=== PATIENT | male | born 1970 | race Caucasian/White ===

== ENCOUNTER 2017-02-25 20:24 | Inpatient (IN) | payer SELFPAY ==
[~2017-02-25 20:24] MED LIST: ASPI81TA82 PO; CLON1 PO; DIGO0.25 PO; ENAL2.5 PO; FOLI20CA PO; FURO1TAB93 PO; KLOR20TA6 PO; LITH300 PO; METO50CR PO
[2017-02-25 23:00] VITALS: BP 149/97; PULSE 82; RESP 12; TEMP 98.3
[2017-02-25] MEDS ORDERED: LORazepam 2 MG TAB PO PRN (23:15)
[2017-02-25] MEDS ORDERED: POTASSIUM CHLORIDE 20 MEQ CONTROLLED RELEASE TAB PO ONE (23:15)
[2017-02-25] MEDS ORDERED: SODIUM CHLORIDE 0.9% FLUSH 10 ML FLUSH IV FLUSH PRN (23:15)
[2017-02-25] MEDS ORDERED: NALOXONE HCL 0.4 MG/ML AMP IV PRN (23:15)
[2017-02-25] MEDS ORDERED: LORazepam 2 MG/ML VIAL IV PUSH PRN ×4 (23:15)
[2017-02-25] MEDS ORDERED: FLUMAZENIL 0.5 MG/5 ML VIAL IV PUSH PRN (23:15)
[2017-02-25] MEDS ORDERED: LORazepam 1 MG TAB PO PRN (23:15)
[2017-02-25 23:30] VITALS: BP 126/54; PULSE 78; RESP 33; TEMP 99.2; O2SAT 98
[2017-02-26] VITALS (13 sets, daily range): BP systolic 125–159; BP diastolic 77–100; PULSE 74–97; RESP 15–25; TEMP 97.4–98.2; O2SAT 52–98
[2017-02-26 04:51] LABS: AUTOMATED NEUTROPHIL # 1.8 TH/MM3 (1.8-7.7); BASOPHIL # 0.1 TH/MM3 (0-0.2); BASOPHIL % 1.6 % (0.0-2.0); EOSINOPHIL # 0.1 TH/MM3 (0-0.4); EOSINOPHIL % 3.2 % (0.0-4.0); HEMATOCRIT 33.7 % (39.0-51.0); LYMPH % 29.1 % (9.0-44.0); LYMPHOCYTE # 0.9 TH/MM3 (1.0-4.8); MEAN CELL VOLUME 105.3 FL (80.0-100.0); MEAN CORPUSCULAR HEMOGLOBIN 35.4 PG (27.0-34.0); MEAN CORPUSCULAR HGB CONC 33.6 % (32.0-36.0); MONO % 8.5 % (0.0-8.0); NEUT % 57.6 % (16.0-70.0); PLATELET COUNT 81 TH/MM3 (150-450); RED CELL DISTRIBUTION WIDTH 14.3 % (11.6-17.2); WHITE BLOOD COUNT 3.2 TH/MM3 (4.0-11.0)
[2017-02-26 04:56] LABS: HEMO FLAGS DIFF FINAL
[2017-02-26 05:00] LABS: CHLORIDE 101 MEQ/L (98-107); POTASSIUM 3.3 MEQ/L (3.5-5.1); SODIUM (NA) 138 MEQ/L (136-145)
[2017-02-26 05:07] LABS: ANION GAP 8 MEQ/L (5-15); BICARBONATE 29.1 MEQ/L (21.0-32.0); BLOOD UREA NITROGEN 6 MG/DL (7-18); MAGNESIUM 1.7 MG/DL (1.5-2.5)
[2017-02-26 05:09] LABS: ALT (GPT) 39 U/L (12-78); AST (GOT) 102 U/L (15-37)
[2017-02-26 05:10] LABS: GLOMERULAR FILTRATION RATE 156 ML/MIN (>89)
[2017-02-26 05:11] LABS: TOTAL BILIRUBIN ADULT 2.3 MG/DL (0.2-1.0)
[2017-02-26 05:12] LABS: ALKALINE PHOSPHATASE 109 U/L (45-117)
[2017-02-26] MEDS ORDERED: DILTIAZEM 125 MG/NS 100 ML IV SCH ×2 (06:15)
[2017-02-26] MEDS: ONDANSETRON HCL 4 MG/2 ML VIAL IVP PRN ×2 (06:53→12:58)
[2017-02-26] MEDS ORDERED: PNEUMOCOCCAL POLYVALENT INJ 25 MCG/0.5 ML SYR IM ONE (09:00)
[2017-02-26] MEDS: SODIUM CHLORIDE 0.9% FLUSH 10 ML FLUSH IV FLUSH SCH ×2 (09:26→21:21)
[2017-02-26] MEDS: chlordiazePOXIDE 25 MG CAP PO SCH ×3 (09:26→18:22)
[2017-02-26] MEDS: THIAMINE HCL 100 MG TAB PO SCH (09:26)
--- NOTE | 2017-02-26 11:30 | HHI.HP ---
[facility] Brennen Walsh MD Admission Diagnosis Diagnoses: Chief Complaint: Chest pressure and fast heartbeat Travel History International Travel<30 Days: No Contact w/Intl Traveler <30 Da: No History of Present Illness Years old male with history of CHF and A. fib PDA repair as a child and alcoholic abuse, presented to the ED with complaint of left sided chest pressure 6 out of 10, along with short of breath and palpitation. Patient was taken his vital somewhere and he was told his heart rate is in the 160s so he was sent to the hospital. Patient admitted not taking his medication yesterday and obviously he has a history of compliance. A counseled him extensively about the importance of being committed to his medication in order to avoid heart arrhythmia. Patient is on aspirin only no anticoagulation. He is on Lopressor, digoxin, enalapril Lasix and potassium. Patient reported some nausea. Patient was found to be in A. fib with RVR, he was given Cardizem bolus and placed on drip his heart rate is controlled in the 80s now patient admitted to the ICU Review of Systems All systems reviewed and was positive for what is mentioned in history of present illness otherwise negative Past Family Social History Past Medical History CHF A. fib Bipolar Alcoholic abuse Noncompliance Past Surgical History H/O PDA repair in the childhood Allergies: Coded Allergies: Codeine (Verified Allergy, Mild, Nausea/Vomiting, 02/25/17) Family History Review with the patient,not aware of significant medical history runs in his family Social History He drinks daily beer and other drinks, denies tobacco or illicit drug abuse Physical Exam Vital Signs Vital Signs Date Time Temp Pulse Resp B/P Pulse Ox O2 Delivery O2 Flow Rate FiO2 02/26/17 08:00 88 02/26/17 08:00 91 Nasal Cannula 6.00 02/26/17 08:00 97.7 86 17 137/86 92 02/26/17 06:00 83 02/26/17 05:00 87 02/26/17 05:00 86 16 134/79 91 02/26/17 04:00 91 02/26/17 04:00 86 18 132/88 87 02/26/17 03:47 86 17 144/90 89 02/26/17 03:00 88 02/26/17 03:00 96 15 149/87 52 02/26/17 02:00 93 02/26/17 01:52 94 16 125/77 73 02/26/17 01:52 94 16 125/77 73 02/26/17 01:00 90 02/26/17 00:00 97 02/25/17 23:30 99.2 78 33 126/54 98 02/25/17 23:00 82 12 149/97 Physical Exam GENERAL: This is a well-nourished, well-developed patient, in no apparent distress. SKIN: No rashes, warm and dry HEAD: Atraumatic. Normocephalic. EYES: Pupils equal round and reactive. Extraocular motions intact. No scleral icterus. ENT: Nose without bleeding, or drainage, Airway patent. NECK: Trachea midline. Supple CARDIOVASCULAR: Irregularly irregular rhythm without murmurs, gallops, or rubs. RESPIRATORY: Fair air entry bilaterally. No wheezes, rales, or rhonchi. GASTROINTESTINAL: Abdomen soft, non-tender, nondistended. Positive bowel sounds MUSCULOSKELETAL: Extremities without clubbing, cyanosis, or edema. Pedal pulses appreciated NEUROLOGICAL: Awake and alert. Moves all extremity. Normal speech.no focal neurological deficit Laboratory Laboratory Tests Test 02/26/17 04:37 White Blood Count 3.2 Red Blood Count 3.20 Hemoglobin 11.3 Hematocrit 33.7 Mean Corpuscular Volume 105.3 Mean Corpuscular Hemoglobin 35.4 Mean Corpuscular Hemoglobin 33.6 Concent Red Cell Distribution Width 14.3 Platelet Count 81 Mean Platelet Volume 7.3 Neutrophils (%) (Auto) 57.6 Lymphocytes (%) (Auto) 29.1 Monocytes (%) (Auto) 8.5 Eosinophils (%) (Auto) 3.2 Basophils (%) (Auto) 1.6 Neutrophils # (Auto) 1.8 Lymphocytes # (Auto) 0.9 Monocytes # (Auto) 0.3 Eosinophils # (Auto) 0.1 Basophils # (Auto) 0.1 CBC Comment DIFF FINAL Differential Comment Sodium Level 138 Potassium Level 3.3 Chloride Level 101 Carbon Dioxide Level 29.1 Anion Gap 8 Blood Urea Nitrogen 6 Creatinine 0.56 Estimat Glomerular Filtration 156 Rate Random Glucose 83 Calcium Level 8.1 Magnesium Level 1.7 Total Bilirubin 2.3 Aspartate Amino Transf 102 (AST/SGOT) Alanine Aminotransferase 39 (ALT/SGPT) Alkaline Phosphatase 109 Total Protein 6.5 Albumin 3.3 Lipase 277 Result Diagram: 02/26/1743602/26/17436 Imaging EKG showed A. fib with RVR Assessment and Plan Assessment and Plan 46 years old male with history of A. fib and CHF came with A. fib with RVR manifested with chest pressure, patient has history of A. fib he is on Lopressor and digoxin History of CHF Increased lipase 1003 dropped to normal limit today possibly chronic pancreatitis due to alcoholism Alcohol abuse> patient counseled Noncompliance> [facility] DVT prophylaxis Plan: Admitted to ICU Started on Cardizem drip with bolus Oxygen Cardiac enzyme and EKG reviewed by me normal ce, Check 2-D echo to document his EF We'll resume his Lopressor and digoxin and slowly taper Cardizem drip to keep heart rate below 110 Resume Lasix CHA2D VASc score is 1 consider his CHF , patient on aspirin only, he might not be candidate at this point for anticoagulation considering his significant noncompliance and alcoholism DVT prophylaxis with Lovenox Transfer to MedSur floor when of Cardizem and heart are stable DT prophylaxis with CIWA protocol Physician Certification 2 Midnight Certification Type: Admission for Inpatient Services Order for Inpatient Services The services are ordered in accordance with Medicare regulations or non- Medicare payer requirements, as applicable. In the case of services not specified as inpatient-only, they are appropriately provided as inpatient services in accordance with the 2-midnight benchmark. Estimated LOS (days): 2 days is the estimated time the patient will need to remain in the hospital, assuming treatment plan goals are met and no additional complications. Post-Hospital Plan: Not yet determined Cheryl Bear MD February 26, 2017 11:30
[2017-02-26] MEDS ORDERED: LITH600C PO (11:33)
[2017-02-26] MEDS ORDERED: ASPI81CH CHEW (11:33)
[2017-02-26] MEDS ORDERED: FOLI5CAP PO (11:33)
[2017-02-26] MEDS ORDERED: POTA20TA5 PO (11:33)
[2017-02-26] MEDS ORDERED: CLON1 PO (11:33)
[2017-02-26] MEDS ORDERED: METO-309 PO (11:33)
[2017-02-26] MEDS ORDERED: FURO1TAB60 PO (11:33)
[2017-02-26] MEDS ORDERED: ENAL2.5T PO (11:33)
[2017-02-26] MEDS ORDERED: LITH300T PO (11:33)
[2017-02-26] MEDS ORDERED: DIGO0.25 PO (11:33)
[2017-02-26] MEDS: METOPROLOL SUCCINATE 50 MG EXTENDED RELEASE TAB PO SCH ×2 (11:56→21:20)
--- NOTE | 2017-02-26 16:53 | EC ---
Study Study Date:02/26/2017 STUDY CONCLUSIONS SUMMARY - Left ventricle: The cavity size was normal. Wall thickness was normal. Systolic function was normal. The estimated ejection fraction was in the range of 55% to 60%. Wall motion was normal; there were no regional wall motion abnormalities. - Ventricular septum: The contour showed diastolic flattening and systolic flattening. - Right ventricle: The cavity size was moderately dilated. Wall thickness was normal. Systolic function was reduced. - Tricuspid valve: Mild-moderate regurgitation. - Pulmonary arteries: Systolic pressure was severely increased. PA peak pressure: 80mm Hg (S). If LV function is below 40, please consider prescribing an ACEI or ARB or document rationale for non-use. PROCEDURE DATA STUDY STATUS: Elective. Procedure: Transthoracic echocardiography. Image quality was good. Scanning was performed from the parasternal, apical, and subcostal acoustic windows. Study completion: The patient tolerated the procedure well. Transthoracic echocardiography. M-mode, complete 2D, complete spectral Doppler, and color Doppler. Patient status: Inpatient. CARDIAC ANATOMY LEFT VENTRICLE: The cavity size was normal. Wall thickness was normal. Systolic function was normal. The estimated ejection fraction was in the range of 55% to 60%. Wall motion was normal; there were no regional wall motion abnormalities. AORTIC VALVE: Trileaflet; normal thickness leaflets. Doppler: Transvalvular velocity was within the normal range. There was no stenosis. No regurgitation. AORTA: Aortic root: The aortic root was normal in size. MITRAL VALVE: Structurally normal valve. Doppler: Transvalvular velocity was within the normal range. There was no evidence for stenosis. Trace to mild regurgitation. LEFT ATRIUM: The atrium was normal in size. RIGHT VENTRICLE: The cavity size was moderately dilated. Wall thickness was normal. Systolic function was reduced. VENTRICULAR SEPTUM: The contour showed diastolic flattening and systolic flattening. PULMONIC VALVE: Doppler: Transvalvular velocity was within the normal range. There was no evidence for stenosis. No regurgitation. TRICUSPID VALVE: Structurally normal valve. Doppler: Transvalvular velocity was within the normal range. Mild-moderate regurgitation. PULMONARY ARTERY: The main pulmonary artery was normal-sized. Systolic pressure was severely increased. RIGHT ATRIUM: The atrium was normal in size. PERICARDIUM: There was no pericardial effusion. SYSTEMIC VEINS: Inferior vena cava: The vessel was dilated. BASIC MEASUREMENTS ADULT NORMAL Left ventricle LV internal dimension, ED, chordal level, 44.3 mm 43-52 PLAX LV internal dimension, ES, chordal level, 30.7 mm 23-38 PLAX Fractional shortening, chordal level, PLAX 31 % >29 LV posterior wall thickness, ED 7.84 mm IVS/LVPW ratio, ED 1.28 <1.3 Ventricular septum Septal thickness, ED 10 mm Left atrium Anterior-posterior dimension 41 mm Right ventricle RV internal dimension, ED, PLAX 31.6 mm 19-38 DOPPLER MEASUREMENTS ADULT NORMAL Main pulmonary artery Pressure, S *80 mm Hg =30 Mitral valve Peak E-wave velocity 64.2 cm/s Peak A-wave velocity 28.6 cm/s Peak E/A ratio 2.2 Tricuspid valve Regurgitant peak velocity 403 cm/s Peak RV-RA gradient, S 65 mm Hg Maximal regurgitant velocity 403 cm/s Systemic veins Estimated CVP 15 mm Hg Right ventricle RV pressure, S *80 mm Hg <30 LEGEND: Mean values are shown as u=mean value. Asterisk (*) gill values outside specified normal range. Amended Navi Hernandez [id number]
[2017-02-26] MEDS ORDERED: ACETAMINOPHEN 325 MG TAB PO PRN (19:15)
[2017-02-26] MEDS ORDERED: clonazePAM 1 MG TAB PO SCH (21:00)
[2017-02-26] MEDS: LITHIUM CARBONATE 300 MG TAB PO SCH (21:20)
[2017-02-27] VITALS: BP 155/98; PULSE 90; RESP 19; TEMP 99.2; O2SAT 97
[2017-02-27] MEDS: ONDANSETRON HCL 4 MG/2 ML VIAL IVP PRN (01:13)
[2017-02-27 04:00] VITALS: BP 134/84; PULSE 92; RESP 16; TEMP 98.3
[2017-02-27 08:00] VITALS: BP 121/78; PULSE 83; PULSE 92; RESP 16; TEMP 99.1; O2SAT 93
[2017-02-27] MEDS ORDERED: POTASSIUM CHLORIDE 20 MEQ CONTROLLED RELEASE TAB PO SCH (09:00)
[2017-02-27] MEDS ORDERED: FOLIC ACID 1 MG TAB PO SCH (09:00)
[2017-02-27] MEDS ORDERED: DIGOXIN 0.25 MG TAB PO SCH (09:00)
[2017-02-27] MEDS ORDERED: ENALAPRIL MALEATE 2.5 MG TAB PO SCH (09:00)
[2017-02-27] MEDS ORDERED: ASPIRIN 81 MG CHEW TAB PO SCH (09:00)
[2017-02-27] MEDS ORDERED: FUROSEMIDE 40 MG TAB PO SCH (09:00)
[2017-02-27] MEDS: THIAMINE HCL 100 MG TAB PO SCH (09:12)
[2017-02-27] MEDS: METOPROLOL SUCCINATE 50 MG EXTENDED RELEASE TAB PO SCH (09:12)
[2017-02-27] MEDS: chlordiazePOXIDE 25 MG CAP PO SCH (09:12)
[2017-02-27] MEDS: SODIUM CHLORIDE 0.9% FLUSH 10 ML FLUSH IV FLUSH SCH (09:12)
[2017-02-27] MEDS: LITHIUM CARBONATE 300 MG TAB PO SCH (09:13)
[2017-02-27 12:00] VITALS: BP 101/67; PULSE 78; RESP 12; TEMP 97.2; O2SAT 96
[2017-02-27] MEDS ORDERED: VITA100T2 PO (12:30)
--- NOTE | 2017-02-27 18:24 | HHI.PR ---
Subjective Remarks Patient doing much better, heart rate controlled, no chest pain or chest pressure He has good O2 sat discussed with the nurse plan to discharge home today Objective Vitals Vital Signs Date Time Temp Pulse Resp B/P Pulse Ox O2 Delivery O2 Flow Rate FiO2 02/27/17 12:00 97.2 78 12 101/67 96 02/27/17 12:00 96 Nasal Cannula 2.00 02/27/17 08:00 83 02/27/17 08:00 99.1 92 16 121/78 93 02/27/17 07:53 92 Nasal Cannula 3.00 02/27/17 04:00 98.3 92 16 134/84 02/27/17 04:00 92 02/27/17 00:00 90 02/27/17 00:00 99.2 90 19 155/98 97 02/26/17 20:31 17 02/26/17 20:00 80 02/26/17 20:00 98.2 80 17 159/100 98 02/26/17 19:00 98 Nasal Cannula 6.00 I/O 02/26/17 02/26/17 02/26/17 02/27/17 02/27/17 02/27/17 07:00 15:00 23:00 07:00 15:00 23:00 Intake Total 1835 ml 852 ml 1000 ml 1000 ml 2600 ml Output Total 600 ml 450 ml 650 ml 2400 ml Balance 1235 ml 402 ml 350 ml -1400 ml 2600 ml Intake Oral 1800 ml 820 ml 1000 ml 1000 ml 2600 ml IV Total 35 ml 32 ml Output Urine Total 600 ml 450 ml 650 ml 2400 ml # Voids 3 5 # Bowel Movements 0 3 3 Result Diagram: 02/26/17 0437 02/26/17 0437 Objective Remarks GENERAL: This is a well-nourished, well-developed patient, in no apparent distress. CARDIOVASCULAR: Regular rate and irregular rhythm without murmurs, gallops, or rubs. RESPIRATORY: Clear to auscultation. Breath sounds equal bilaterally. No wheezes , rales, or rhonchi. GASTROINTESTINAL: Abdomen soft, non-tender, nondistended. Normal, active bowel sounds MUSCULOSKELETAL: Extremities without clubbing, cyanosis, or edema. NEURO: Alert & Oriented x4 to person, place, time, situation. Moves all ext x4 A/P Assessment and Plan 46 years old male with history of A. fib and CHF came with A. fib with RVR manifested with chest pressure, patient has history of A. fib he is on Lopressor and digoxin History of CHF Increased lipase 1003 dropped to normal limit today possibly chronic pancreatitis due to alcoholism Alcohol abuse> patient counseled Noncompliance> [facility] DVT prophylaxis Hospital course Patient Admitted to ICU That is post Cardizem drip with bolus Oxygen Cardiac enzyme and EKG are unremarkable Patient resumed on his Lopressor and digoxin and slowly taper Cardizem drip to keep heart rate below 110, heart rate well controlled on digoxin and Lopressor Resume Lasix CHA2D VASc score is 1 consider his CHF , patient on aspirin only, he might not be candidate at this point for anticoagulation considering his significant noncompliance and alcoholism DVT prophylaxis with Lovenox DT prophylaxis with CIWA protocol Ration stable to be discharged home and follow up with his contracting specialist and PCP Discharge patient to home Condition on discharge: Improved Healthy heart Diet as tolerated Ad Mary Alice activity Rx written: See med rec Follow-up with primary care physician in one week Cheryl Bear MD February 27, 2017 18:24
[2017-03-17] MEDS ORDERED: FURO40TA PO (13:13)
== END 2017-02-27 14:00 | disposition home or self-care (01) | DRG 309 ==
LOC: PHEDDLT 20:24 → PHICU 22:54
PROVIDERS: ADMIT Hospitalist; ATTEND Hospitalist
DX: I48.91 Unspecified atrial fibrillation (principal); K86.0 Alcohol-induced chronic pancreatitis; I50.9 Heart failure, unspecified; Z79.82 Long term (current) use of aspirin; Z91.19 Patient's noncompliance with other medical treatment and regimen; F10.20 Alcohol dependence, uncomplicated
CPT/HCPCS: 71010; 80053; 80162; 80307; 83690; 83735; 83880; 84484; 85025; 85610; 85730; 90732; 93005; 93306; 94620; 96374; 96375; 99281; J2405; J3475; J7040

== ENCOUNTER 2017-03-17 21:53 | Inpatient (IN) | payer MEDICAID, OTHER ==
[~2017-03-17] VITALS: Ht 177.8 cm; Wt 81.1 kg
[~2017-03-17 21:53] MED LIST changes: +ASPI81CH CHEW; +ENAL2.5T PO; +FOLI5CAP PO; +FURO1TAB60 PO; +FURO40TA PO; +LITH300T PO; +LITH600C PO; +METO-309 PO; +POTA20TA5 PO; +VITA100T2 PO
[2017-03-17 22:03] VITALS: BP 138/98; PULSE 59; RESP 22; TEMP 97.8; O2SAT 100
[2017-03-17] MEDS ORDERED: LORazepam 2 MG/ML VIAL IV PUSH PRN (22:30)
[2017-03-17] MEDS ORDERED: THIAMINE HCL 100 MG TAB PO ONE (22:30)
[2017-03-17] MEDS ORDERED: NALOXONE HCL 0.4 MG/ML AMP IV PRN (22:30)
[2017-03-17] MEDS ORDERED: SODIUM CHLORIDE 0.9% FLUSH 10 ML FLUSH IV FLUSH PRN (22:30)
--- NOTE | 2017-03-17 23:43 | HHI.HP ---
[facility] Unknown Admission Diagnosis Diagnoses: Travel History International Travel<30 Days: No Contact w/Intl Traveler <30 Da: No Traveled to Known Affected Are: No Sepsis Criteria SIRS Criteria (2 or more): RR > 20 or PaCO2 < 32 History of Present Illness reports of dizziness, shortness of breath palptiations hr 140s weakness lack of energy chest pain - nasuea with it , no sweating , no radiation cramps ran out of kcl pills going on few days but worse reports compliance, able to name his meds, but dig level subtherapeutic folic acid and kcl ran out no fever/ vomiting/ diarrhea/ burnign./ blood constantly cold have not had levothryoxine for almost 10d ays pcp- [facility] [place] Review of Systems Except as stated in HPI: all other systems reviewed are Neg Past Family Social History Past Medical History htn chf afib - on asa alone, had bleeding due to coumadin bipolar 2004- renal failure- pneumonia, was intubated- had heart failure then; was on dialysis briefly then, 29 days in coma hypothyroid Past Surgical History Patent ductus arteriosis sx at age 2 - with patch cardiac ablation for afib Allergies: Coded Allergies: Codeine (Verified Allergy, Mild, Nausea/Vomiting, 03/31/17) Family History copd in family grandfather at 50yo of massive heart attack aunt brain aneurysm 2 uncles with lung cancer mother with pad from smoking Social History no smoking drink about 4 pack a day no drugs Physical Exam Vital Signs Vital Signs Date Time Temp Pulse Resp B/P Pulse Ox O2 Delivery O2 Flow Rate FiO2 03/17/17 22:03 97.8 59 22 138/98 100 Physical Exam GENERAL: This is a well-nourished, well-developed patient, in no apparent distress. SKIN: Flushed skin HEAD: Atraumatic. Normocephalic. No temporal or scalp tenderness. EYES: No scleral icterus. No injection or drainage. ENT: Nose without bleeding, purulent drainage or septal hematoma. Airway patent. NECK: Trachea midline. No JVD CARDIOVASCULAR: Regular rate and rhythm without murmurs, gallops, or rubs. RESPIRATORY: Irregularly irregular, ventricular rate around 110. No murmur appreciated. GASTROINTESTINAL: Abdomen soft, non-tender, nondistended.No guarding. MUSCULOSKELETAL: Extremities without clubbing, cyanosis, or edema. . No calf tenderness. NEUROLOGICAL: Awake and alert. Motor and sensory grossly within normal limits. Normal speech. Laboratory labs from [place] er visit reviewed Imaging imaging reports- from [place] er visit- reviewed Assessment and Plan Assessment and Plan Impression: chest pain - r/o acs afib with rvr chf exacerbation etoh abuse hypokalemia hypomagnesium Plan: serial cardiac enzymes and ekg lasix 20mg iv q12hrs - for maybe next 24hrs or so kcl 40meq x 2 replaced Magnesium replaced orally. Will follow levels. Watch for withdrawal. Ativan 1 mg IV every 2 hours when necessary for withdrawal symptoms. Thiamine. Resume home meds. DVT prophylaxiswith Lovenox. GI prophylaxis on pantoprazole. Discussed Condition With patient, ER provider, nursing staff Physician Certification 2 Midnight Certification Type: Admission for Inpatient Services Order for Inpatient Services The services are ordered in accordance with Medicare regulations or non- Medicare payer requirements, as applicable. In the case of services not specified as inpatient-only, they are appropriately provided as inpatient services in accordance with the 2-midnight benchmark. Estimated LOS (days): 2 days is the estimated time the patient will need to remain in the hospital, assuming treatment plan goals are met and no additional complications. Post-Hospital Plan: Home Yaron Herring MD March 17, 2017 23:43
[2017-03-18] VITALS (8 sets, daily range): BP systolic 104–147; BP diastolic 59–99; PULSE 82–120; RESP 20; TEMP 97–98.1; O2SAT 93–98
[2017-03-18 00:44] LABS: CREATINE KINASE 59 U/L (39-308)
[2017-03-18 03:59] LABS: AUTOMATED NEUTROPHIL # 1.8 TH/MM3 (1.8-7.7); BASOPHIL # 0.1 TH/MM3 (0-0.2); EOSINOPHIL # 0.1 TH/MM3 (0-0.4); HEMATOCRIT 37.8 % (39.0-51.0); HEMO FLAGS DIFF FINAL; LYMPH % 31.9 % (9.0-44.0); LYMPHOCYTE # 1.2 TH/MM3 (1.0-4.8); MEAN CORPUSCULAR HEMOGLOBIN 35.5 PG (27.0-34.0); MEAN CORPUSCULAR HGB CONC 33.8 % (32.0-36.0); MONO % 15.2 % (0.0-8.0); NEUT % 48.9 % (16.0-70.0); PLATELET COUNT 149 TH/MM3 (150-450); RED CELL DISTRIBUTION WIDTH 13.5 % (11.6-17.2); WHITE BLOOD COUNT 3.6 TH/MM3 (4.0-11.0)
[2017-03-18 04:11] LABS: ANION GAP 11 MEQ/L (5-15); BICARBONATE 26.7 MEQ/L (21.0-32.0); BLOOD UREA NITROGEN 4 MG/DL (7-18); CHLORIDE 101 MEQ/L (98-107); GLOMERULAR FILTRATION RATE 170 ML/MIN (>89); POTASSIUM 3.3 MEQ/L (3.5-5.1); SODIUM (NA) 139 MEQ/L (136-145)
[2017-03-18 04:21] LABS: CREATINE KINASE 56 U/L (39-308)
[2017-03-18] MEDS: ENALAPRIL MALEATE 2.5 MG TAB PO SCH (09:00)
[2017-03-18] MEDS: SODIUM CHLORIDE 0.9% FLUSH 10 ML FLUSH IV FLUSH SCH ×2 (09:00→20:42)
[2017-03-18] MEDS ORDERED: POTASSIUM CHLORIDE 20 MEQ CONTROLLED RELEASE TAB PO SCH (09:00)
[2017-03-18] MEDS: LITHIUM CARBONATE 300 MG SLOW RELEASE TAB PO SCH ×2 (09:00→20:42)
[2017-03-18] MEDS: FUROSEMIDE 20 MG/2 ML VIAL IV PUSH SCH ×2 (09:00→18:00)
[2017-03-18] MEDS: DIGOXIN 0.25 MG TAB PO SCH (09:00)
[2017-03-18] MEDS: ENOXAPARIN SODIUM 40 MG/0.4 ML SYRINGE SQ SCH (09:00)
[2017-03-18] MEDS: THIAMINE HCL 100 MG TAB PO SCH (09:00)
[2017-03-18] MEDS ORDERED: ENOXAPARIN SODIUM 40 MG/0.4 ML SYRINGE SQ SCH (09:00)
[2017-03-18] MEDS: ASPIRIN 81 MG CHEW TAB CHEW SCH (09:00)
[2017-03-18] MEDS: METOPROLOL TARTRATE 50 MG TAB PO SCH ×2 (09:00→20:42)
--- NOTE | 2017-03-18 11:28 | EKG ---
Date Performed: 03/18/2017 Time Performed: 04:56:40 PTAGE: 46 years EKG: Atrial fibrillation Prolonged QT interval IV conduction defect Possible septal infarct - ag e undetermined Lateral ST-T changes are nonspecific Abnormal ECG PREVIOUS TRACING : 03/17/2017 22.37 Compared to prior tracing no significant change DOCTOR: Alexis Comer Interpretating Date/Time 03/18/2017 11:26:58
--- NOTE | 2017-03-18 11:32 | EKG ---
Date Performed: 03/17/2017 Time Performed: 22:37:30 PTAGE: 46 years EKG: ATRIAL FIBRILLATION INCOMPLETE RIGHT BUNDLE BRANCH BLOCK ST DEVIATION AND MODERATE T-WAVE A BNORMALITY, CONSIDER ANTERIOR ISCHEMIA ABNORMAL ECG PREVIOUS TRACING : 04/28/2016 01.22 Compared to prior tracing no significant change DOCTOR: Alexis Comer Interpretating Date/Time 03/18/2017 11:30:42
--- NOTE | 2017-03-18 13:34 | HHI.PR ---
Subjective Remarks patient feeling better brought in patient complaining of palpitations states ran out of his Potassium pills admits to still drinking alcohol no chest pains or shortness of breath, diarrhea, cough or palpitations overnight up and ambulating- gait steady Objective Vitals Vital Signs Date Time Temp Pulse Resp B/P Pulse Ox O2 Delivery O2 Flow Rate FiO2 03/18/17 12:00 97.8 83 20 118/76 93 03/18/17 08:00 97.0 120 20 121/99 96 03/18/17 04:00 97.5 82 20 147/79 96 03/18/17 01:23 91 03/18/17 00:02 Room Air 03/17/17 22:03 97.8 59 22 138/98 100 Result Diagram: 03/18/17 0334 03/18/17 0334 Objective Remarks awake and alert, NAD anicteric lungs no rales or wheezes irregularly irregular rhythm HR 78 abdomen soft, nontender extremities no edema, no calf tenderness neuro exam- unremarkable A/P Assessment and Plan 46 years old male came in for palpitations and chest pain- on admission in rapid a. fib- now controlled. troponin negative. now continue on ASA. patient poor candidate for chronic anticoagulation. with chronic alcohol use chf exacerbation - lungs clear on exam- change to po Lasix Hypokalemia- KCL 20 meq po bid etoh abuse - counselled. CIWA protocol, CM consult- [facility] referral History of Bipolar disorder on [place] and Klonopin DVT prophylaxiswith Lovenox. GI prophylaxis on pantoprazole. Jessenia Savage MD Mar 18, 2017 13:34
[2017-03-18 15:50] LABS: BICARBONATE 28.2 MEQ/L (21.0-32.0); MAGNESIUM 1.5 MG/DL (1.5-2.5); POTASSIUM 3.4 MEQ/L (3.5-5.1)
[2017-03-18] MEDS: POTASSIUM CHLORIDE 20 MEQ CONTROLLED RELEASE TAB PO SCH (20:42)
[2017-03-18] MEDS ORDERED: clonazePAM 1 MG TAB PO SCH (21:00)
[2017-03-19] VITALS: BP 111/69; PULSE 80; RESP 20; TEMP 97.6; O2SAT 92
[2017-03-19 04:00] VITALS: BP 110/77; PULSE 86; RESP 20; TEMP 98; O2SAT 92
[2017-03-19 08:00] VITALS: BP 119/75; PULSE 87; RESP 18; TEMP 97.3; O2SAT 94
[2017-03-19] MEDS: LITHIUM CARBONATE 300 MG SLOW RELEASE TAB PO SCH (08:08)
[2017-03-19] MEDS: DIGOXIN 0.25 MG TAB PO SCH (08:08)
[2017-03-19] MEDS: THIAMINE HCL 100 MG TAB PO SCH (08:09)
[2017-03-19] MEDS: ASPIRIN 81 MG CHEW TAB CHEW SCH (08:09)
[2017-03-19] MEDS: METOPROLOL TARTRATE 50 MG TAB PO SCH (08:09)
[2017-03-19] MEDS: POTASSIUM CHLORIDE 20 MEQ CONTROLLED RELEASE TAB PO SCH (08:09)
[2017-03-19] MEDS: ENOXAPARIN SODIUM 40 MG/0.4 ML SYRINGE SQ SCH (08:10)
[2017-03-19] MEDS: FUROSEMIDE 20 MG/2 ML VIAL IV PUSH SCH (08:10)
[2017-03-19] MEDS: SODIUM CHLORIDE 0.9% FLUSH 10 ML FLUSH IV FLUSH SCH (08:10)
[2017-03-19] MEDS: ENALAPRIL MALEATE 2.5 MG TAB PO SCH (08:10)
[2017-03-19 09:00] VITALS: PULSE 102
--- NOTE | 2017-03-19 11:19 | HHI.PR ---
Subjective Remarks feeling much much better- ambulating around with no dizzines, chest pain or palpitations Objective Vitals Vital Signs Date Time Temp Pulse Resp B/P Pulse Ox O2 Delivery O2 Flow Rate FiO2 03/19/17 08:00 97.3 87 18 119/75 94 03/19/17 04:00 98.0 86 20 110/77 92 03/19/17 00:00 97.6 80 20 111/69 92 03/18/17 20:19 93 03/18/17 20:00 98.1 90 20 104/59 97 03/18/17 20:00 Room Air 03/18/17 16:00 98.0 94 20 126/69 98 03/18/17 12:00 97.8 83 20 118/76 93 I/O 03/18/17 03/18/17 03/18/17 03/19/17 03/19/17 03/19/17 07:00 15:00 23:00 07:00 15:00 23:00 Intake Total 480 ml 0 ml 480 ml Output Total 500 ml 0 ml 700 ml Balance -20 ml 0 ml -220 ml Intake Oral 480 ml 0 ml 480 ml Output Urine Total 500 ml 0 ml 700 ml # Bowel Movements 1 Result Diagram: 03/18/17 0334 03/18/17 1505 Objective Remarks awake and alert, NAD anicteric lungs no rales or wheezes irregularly irregular rhythm HR 80s abdomen soft, nontender extremities no edema, no calf tenderness neuro exam- unremarkable gait steady A/P Assessment and Plan 46 years old male came in for A trial fibrillation in RVR - - now controlled. troponin negative. now continue on ASA. patient poor candidate for chronic anticoagulation. with chronic alcohol use chf exacerbation - lungs clear on exam- change to po Lasix Hypokalemia- KCL 20 meq po bid. BMP now etoh abuse - counselled. CIWA protocol, CM consult- [facility] referral History of Bipolar disorder on [place] and Klonopin DVT prophylaxiswith Lovenox. GI prophylaxis on pantoprazole. Patient wanting to go home now- He ff up with a Health care center got all of his meds + Kcl scripts- just needs to be filled will ask CM for taxi pass Home today Jessenia Savage MD Mar 19, 2017 11:19
[2017-03-19] MEDS ORDERED: GNP100TA3 PO (11:21)
[2017-03-19 12:00] VITALS: BP 126/90; PULSE 82; RESP 18; TEMP 97.2; O2SAT 94
== END 2017-03-19 15:03 | disposition home or self-care (01) | DRG 310 ==
LOC: NEDDLT 21:53 → N04A 22:03
PROVIDERS: ADMIT Internal Medicine; ATTEND Internal Medicine
DX: I48.91 Unspecified atrial fibrillation (principal); I50.9 Heart failure, unspecified; E87.6 Hypokalemia; F10.10 Alcohol abuse, uncomplicated; F31.9 Bipolar disorder, unspecified; I10 Essential (primary) hypertension; Z79.82 Long term (current) use of aspirin; E03.9 Hypothyroidism, unspecified; E83.42 Hypomagnesemia; T50.3X6A Underdosing of electrolytic, caloric and water-balance agents, initial encounter; Z91.138 Patient's unintentional underdosing of medication regimen for other reason
CPT/HCPCS: 71010; 80048; 80053; 80162; 80307; 82150; 82550; 83690; 83735; 84443; 84484; 85025; 93005; 96374; J1650; J1940

== ENCOUNTER 2017-03-31 21:24 | Observation (INO) | payer MEDICAID, OTHER ==
[~2017-03-31] VITALS: Ht 165.1 cm; Wt 88.0 kg
[~2017-03-31 21:24] MED LIST changes: -ASPI81TA82 PO; -CLON1 PO; -ENAL2.5 PO; -FOLI20CA PO; -FOLI5CAP PO; -FURO1TAB60 PO; -FURO1TAB93 PO; +GNP100TA3 PO; -KLOR20TA6 PO; -LITH300 PO; -LITH600C PO; -METO50CR PO; -POTA20TA5 PO; -VITA100T2 PO
[2017-03-31] MEDS ORDERED: NALOXONE HCL 0.4 MG/ML AMP IV PRN (22:30)
[2017-03-31] MEDS ORDERED: SODIUM CHLORIDE 0.9% FLUSH 10 ML FLUSH IV FLUSH PRN (22:30)
[2017-03-31] MEDS ORDERED: LORazepam 2 MG/ML VIAL IV PUSH PRN (22:30)
[2017-04-01 01:45] VITALS: BP 133/98; PULSE 84; RESP 22; TEMP 97.8; O2SAT 100
[2017-04-01] MEDS ORDERED: SERO100T PO (01:53)
[2017-04-01 03:03] LABS: CREATINE KINASE 45 U/L (39-308)
[2017-04-01 07:54] LABS: BASOPHIL % 1.2 % (0.0-2.0); EOSINOPHIL # 0.1 TH/MM3 (0-0.4); EOSINOPHIL % 4.2 % (0.0-4.0); HEMATOCRIT 37.3 % (39.0-51.0); LYMPH % 44.1 % (9.0-44.0); LYMPHOCYTE # 1.2 TH/MM3 (1.0-4.8); MEAN CELL VOLUME 105.2 FL (80.0-100.0); MEAN CORPUSCULAR HEMOGLOBIN 36.3 PG (27.0-34.0); MEAN CORPUSCULAR HGB CONC 34.5 % (32.0-36.0); MONO % 16.3 % (0.0-8.0); NEUT % 34.2 % (16.0-70.0); PLATELET COUNT 106 TH/MM3 (150-450); RED BLOOD COUNT 3.55 MIL/MM3 (4.50-5.90); RED CELL DISTRIBUTION WIDTH 12.6 % (11.6-17.2); WHITE BLOOD COUNT 2.9 TH/MM3 (4.0-11.0)
[2017-04-01 08:00] VITALS: BP 125/69; PULSE 93; RESP 16; TEMP 96.5; O2SAT 98
[2017-04-01 08:08] LABS: CHLORIDE 102 MEQ/L (98-107); POTASSIUM 3.5 MEQ/L (3.5-5.1); SODIUM (NA) 140 MEQ/L (136-145)
[2017-04-01 08:15] LABS: ANION GAP 11 MEQ/L (5-15); BICARBONATE 26.6 MEQ/L (21.0-32.0); BLOOD UREA NITROGEN 6 MG/DL (7-18); HEMO FLAGS AUTO DIFF
[2017-04-01 08:18] LABS: GLOMERULAR FILTRATION RATE 162 ML/MIN (>89)
[2017-04-01 08:22] LABS: CREATINE KINASE 41 U/L (39-308)
[2017-04-01] MEDS ORDERED: THIAMINE HCL 100 MG TAB PO SCH ×2 (09:00→12:00)
[2017-04-01] MEDS ORDERED: SODIUM CHLORIDE 0.9% FLUSH 10 ML FLUSH IV FLUSH SCH (09:00)
[2017-04-01 09:34] LABS: BASOPHILS 1 % (0-2); EOSINOPHILS 5 % (0-4); PLATELET ESTIMATE SMEAR LOW (NORMAL); PLATELET MORPHOLOGY NORMAL (NORMAL); POLYS (SEG NEUTROPHILS) 33 % (16-70); SCAN/DIFF FINAL DIFF MANUAL; WBC DIFF SAMPLE 100
[2017-04-01] MEDS ORDERED: GNP100TA3 PO (11:32)
--- NOTE | 2017-04-01 11:33 | HHI.DCPOC ---
Discharge Care Plan Diagnosis: (1) Alcohol intoxication (2) Atrial arrhythmia Goals to Promote Your Health * To prevent worsening of your condition and complications * To maintain your health at the optimal level Directions to Meet Your Goals Take your medications as prescribed Follow your dietary instruction Follow activity as directed Keep your appointments as scheduled Take your immunizations and boosters as scheduled If your symptoms worsen call your PCP, if no PCP go to Urgent Care Center or Emergency Room Smoking is Dangerous to Your Health. Avoid second hand smoke Call the 24-hour hour crisis hotline for domestic abuse at Irene Rubin MD Apr 01, 2017 11:33
[2017-04-01 12:00] VITALS: BP 119/98; PULSE 136; RESP 20; TEMP 97.3; O2SAT 99
[2017-04-01 12:01] VITALS: O2SAT 98
--- NOTE | 2017-04-01 12:03 | HHI.HP ---
[facility] Primary Care Physician No Primary Care Physician Admission Diagnosis Diagnoses: (1) Atrial arrhythmia (2) ETOH abuse Chief Complaint: Intoxication and atrial fibrillation Travel History International Travel<30 Days: No Contact w/Intl Traveler <30 Da: No Traveled to Known Affected Are: No History of Present Illness Patient is a 46-year-old gentleman with a known history of prolonged alcohol dependency status. Patient does have a history that he was on a park bench and passed out and was sent to the emergency room by the emergency services. Patient was grossly intoxicated and unable to provide a good history. Upon sobering up the patient did complain of some abdominal discomfort and some recent ingestion of hand cotton picker in lieu of alcohol because it was "cheaper " . Patient has not taken his cardiac medications in 2 days. He did have some atrial fibrillation with a rapid ventricular response in the 130s to 150s. This improved with resuming his home medications. A lecture lites were followed. Patient has chronic thrombocytopenia which is stable without any active bleeding. Patient also reports he was recently discontinued of his digoxin due to improved heart rate status. Recently he had an echocardiogram done in February which showed preserved ejection fraction and otherwise within normal limits although the patient had a history of congestive heart failure. Patient also denies EKG nonspecific changes and negative cardiac enzymes at this time. There is no matt chest discomfort. Patient is complaining of abdominal discomfort. He has not eaten and some days it was quite sleepy while he was here. He has been alert and oriented with minimal tremor. Patient discharge planning has begun. Patient says he would not want any cardiac interventions at this time and would like to follow with his primary cloth mercerizing supervisor Dr. Tran. Review of Systems Constitutional: DENIES: Diaphoretic episodes, Fatigue, Fever, Weight gain, Weight loss, Chills, Dizziness, Change in appetite, Night Sweats Endocrine: DENIES: Heat/cold intolerance, Polydipsia, Polyuria, Polyphagia Eyes: DENIES: Blurred vision, Diplopia, Eye inflammation, Eye pain, Vision loss , Photosensitivity, Double Vision Ears, nose, mouth, throat: DENIES: Tinnitus, Hearing loss, Vertigo, Nasal discharge, Oral lesions, Throat pain, Hoarseness, Ear Pain, Running Nose, Epistaxis, Sinus Pain, Toothache, Odynophagia Respiratory: DENIES: Apneas, Cough, Snoring, Wheezing, Hemoptysis, Sputum production, Shortness of breath Cardiovascular: COMPLAINS OF: Palpitations, DENIES: Chest pain, Syncope, Dyspnea on Exertion, PND, Lower Extremity Edema, Orthopnea, Claudication Gastrointestinal: DENIES: Abdominal pain, Black stools, Bloody stools, Constipation, Diarrhea, Nausea, Vomiting, Difficulty Swallowing, Anorexia Genitourinary: DENIES: Sexual dysfunction, Urinary frequency, Urinary incontinence, Urgency, Hematuria, Dysuria, Nocturia, Penile Discharge, Testicular Pain, Testicular Swelling Musculoskeletal: DENIES: Joint pain, Muscle aches, Stiffness, Joint Swelling, Back pain, Neck pain Integumentary: DENIES: Abnormal pigmentation, Nail changes, Pruritus, Rash Hematologic/lymphatic: DENIES: Bruising, Lymphadenopathy Immunologic/allergic: DENIES: Eczema, Urticaria Neurologic: DENIES: Abnormal gait, Headache, Localized weakness, Paresthesias, Seizures, Speech Problems, Tremor, Poor Balance Psychiatric: DENIES: Anxiety, Confusion, Mood changes, Depression, Hallucinations, Agitation, Suicidal Ideation, Homicidal Ideation, Delusions Past Family Social History Past Medical History HTN AFIB CHF Etoh Dep Past Surgical History PDA repair Ablation Reported Medications Viewed in the medical record with patient. Recently discontinued digoxin Allergies: Coded Allergies: Codeine (Verified Allergy, Mild, Nausea/Vomiting, 03/31/17) Active Ordered Medications Reviewed in the medical record Family History Grandfather of coronary artery disease Social History No current tobacco, drinks beer excessively a homeless Physical Exam Vital Signs Vital Signs Date Time Temp Pulse Resp B/P Pulse Ox O2 Delivery O2 Flow Rate FiO2 04/01/17 08:00 96.5 93 16 125/69 98 04/01/17 01:45 97.8 84 22 133/98 100 04/01/17 01:45 97.8 84 22 133/98 100 Physical Exam GENERAL: This is a well-nourished, well-developed patient, in no apparent distress. SKIN: No rashes, ecchymoses or lesions. Cool and dry. HEAD: Atraumatic. Normocephalic. No temporal or scalp tenderness. EYES: Pupils equal round and reactive. Extraocular motions intact. No scleral icterus. No injection or drainage. ENT: Nose without bleeding, purulent drainage or septal hematoma. Throat without erythema, tonsillar hypertrophy or exudate. Uvula midline. Airway patent. NECK: Trachea midline. No JVD or lymphadenopathy. Supple, nontender, no meningeal signs. CARDIOVASCULAR: Atrial fibrillation without murmurs, gallops, or rubs. RESPIRATORY: Clear to auscultation. Breath sounds equal bilaterally. No wheezes , rales, or rhonchi. GASTROINTESTINAL: Abdomen soft, non-tender, nondistended. No hepato-splenomegaly , or palpable masses. No guarding. MUSCULOSKELETAL: Extremities without clubbing, cyanosis, or edema. No joint tenderness, effusion, or edema noted. No calf tenderness. Negative Homans sign bilaterally. NEUROLOGICAL: Awake and alert. Cranial nerves II through XII intact. Motor and sensory grossly within normal limits. Five out of 5 muscle strength in all muscle groups. Normal speech. Laboratory Laboratory Tests Test 04/01/17 04/01/17 02:30 07:30 Total Creatine Kinase 45 41 Troponin I LESS THAN 0.02 LESS THAN 0.02 White Blood Count 2.9 Red Blood Count 3.55 Hemoglobin 12.9 Hematocrit 37.3 Mean Corpuscular Volume 105.2 Mean Corpuscular Hemoglobin 36.3 Mean Corpuscular Hemoglobin 34.5 Concent Red Cell Distribution Width 12.6 Platelet Count 106 Mean Platelet Volume 7.2 Neutrophils (%) (Auto) 34.2 Lymphocytes (%) (Auto) 44.1 Monocytes (%) (Auto) 16.3 Eosinophils (%) (Auto) 4.2 Basophils (%) (Auto) 1.2 Neutrophils # (Auto) 1.0 Lymphocytes # (Auto) 1.2 Monocytes # (Auto) 0.5 Eosinophils # (Auto) 0.1 Basophils # (Auto) 0.0 CBC Comment AUTO DIFF Differential Total Cells 100 Counted Neutrophils % (Manual) 33 Lymphocytes % 47 Monocytes % 14 Eosinophils % 5 Basophils % 1 Neutrophils # (Manual) 1.0 Differential Comment FINAL DIFF MANUAL Platelet Estimate LOW Platelet Morphology Comment NORMAL Sodium Level 140 Potassium Level 3.5 Chloride Level 102 Carbon Dioxide Level 26.6 Anion Gap 11 Blood Urea Nitrogen 6 Creatinine 0.54 Estimat Glomerular Filtration 162 Rate Random Glucose 74 Calcium Level 8.8 Result Diagram: 04/01/17 0730 04/01/17 0730 Imaging Chest x-ray interpreted by me shows no acute cardiopulmonary findings, (done ) Assessment and Plan Problem List: (1) Alcohol intoxication ICD Code: F10.929 Status: Acute Plan: Continue with Ativan, vitamin support. Patient admonished to discontinue alcohol Expressed understanding (2) Atrial arrhythmia ICD Code: I49.8 Status: Acute Plan: Patient will resume his home medications including metoprolol, continue telemetry for now. Patient education provided. Patient has requested follow- up with his primary cloth mercerizing supervisor Dr. Tran in [facility]. Nonspecific ekg changes discussed with patient who would not want any further wrk up at this time and would like to see his Primary cloth mercerizing supervisor Echocardiogram done less than a month ago says preserved ejection fraction Negative cardiac enzymes (3) Cytopenia ICD Code: D75.9 Status: Acute Plan: Patient without evidence of infection Chronic due to chronic alcoholism Assessment and Plan Likely discharge home if heart rate improves Code Status Full code Discussed Condition With Patient, nursing staff Irene Rubin MD Apr 01, 2017 12:03
[2017-04-01] MEDS ORDERED: ASPIRIN 81 MG CHEW TAB CHEW SCH (13:00)
[2017-04-01] MEDS ORDERED: FUROSEMIDE 40 MG TAB PO SCH (13:00)
[2017-04-01] MEDS ORDERED: QUEtiapine FUMARATE 100 MG TAB PO SCH (13:00)
[2017-04-01] MEDS ORDERED: ENALAPRIL MALEATE 2.5 MG TAB PO SCH (13:00)
[2017-04-01] MEDS ORDERED: METOPROLOL TARTRATE 50 MG TAB PO SCH (13:00)
[2017-04-01 16:00] VITALS: BP 113/73; PULSE 79; RESP 18; TEMP 97.1; O2SAT 97
== END 2017-04-01 17:05 | disposition home or self-care (01) ==
LOC: PHEDDLT 21:24 → PH3B 04-01 01:15 → UNDOADMOB 04-01 01:15 → UNDODISOB 04-01 17:05
PROVIDERS: ADMIT Hospitalist; ATTEND Hospitalist
DX: F10.229 Alcohol dependence with intoxication, unspecified (principal); I48.91 Unspecified atrial fibrillation; I11.0 Hypertensive heart disease with heart failure; I50.9 Heart failure, unspecified; I49.8 Other specified cardiac arrhythmias; D75.9 Disease of blood and blood-forming organs, unspecified; Z88.5 Allergy status to narcotic agent; Z79.82 Long term (current) use of aspirin
CPT/HCPCS: 80048; 82550; 84484; 85007; 85025; 85027; 87641; 96374; G0378; J2060; 70450; 71010; 80053; 80307; 83735; 83880; 85610; 85730; 93005; 99281; 99285

== ENCOUNTER 2017-04-26 04:52 | Emergency (ER) | payer OTHER ==
[~2017-04-26] VITALS: Ht 165.1 cm; Wt 75.0 kg
[~2017-04-26 04:52] MED LIST changes: -DIGO0.25 PO; +SERO100T PO
[2017-04-26 04:57] VITALS: PULSE 95; RESP 18; TEMP 98.5; O2SAT 100
[2017-04-26 04:59] VITALS: BP 125/89; PULSE 90; RESP 18; TEMP 98.4; O2SAT 100
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
[2017-04-26 09:56] VITALS: BP 113/63; PULSE 75; RESP 18; O2SAT 97
== END 2017-04-26 12:34 | disposition home or self-care (01) ==
LOC: NEPD 04:52
DX: F10.129 Alcohol abuse with intoxication, unspecified (principal); M13.80 Other specified arthritis, unspecified site; I48.91 Unspecified atrial fibrillation; I10 Essential (primary) hypertension; I50.9 Heart failure, unspecified; E78.00 Pure hypercholesterolemia, unspecified; F31.9 Bipolar disorder, unspecified; Z59.0 Homelessness; Z79.82 Long term (current) use of aspirin
CPT/HCPCS: 99283

== ENCOUNTER 2018-08-11 15:48 | Inpatient (IN) ==
--- NOTE | 2018-08-11 15:56 | ED ---
HPI General Chief complaint: Trauma Stated complaint: Medical Time Seen by Provider: 08/11/18 15:55 Source: patient and EMS Mode of arrival: EMS Limitations: altered mental status History of Present Illness HPI narrative: Patient is a 48-year-old male who is brought in by EMS as a transfer from [facility] due to traumatic injury. Per EMS, patient walked into the outside facility and was garbling his speech. Originally, a stroke alert was called. He had a CT of his head performed that showed likely traumatic subdural hematomas. Patient was accepted in transfer to the trauma service here. Patient is awake and alert, however he is not making any sense when he speaks. Therefore, he is unable to provide much history. He does say that he probably fell, but he does not provide any other information. Related Data Home Medications Medication Instructions Recorded Confirmed aspirin 81 mg PO DAILY 08/11/18 atorvastatin 40 mg PO HS 08/11/18 furosemide 20 mg PO DAILY 08/11/18 levetiracetam [Keppra] 500 mg PO BID 08/11/18 levothyroxine [Synthroid] 25 mcg PO DAILY 08/11/18 magnesium oxide 400 mg PO HS 08/11/18 metoprolol tartrate 25 mg PO BID 08/11/18 potassium chloride 20 meq PO DAILY 08/11/18 thiamine HCl (vitamin B1) 100 mg PO DAILY 08/11/18 Allergies Allergy/AdvReac Type Severity Reaction Status Date / Time codeine Allergy Mild Nausea/Vomi Unverified 01/22/18 16:54 ting Review of Systems ROS Unobtainable ROS Unobtainable: unobtainable due to mental status PMFSH Medical History Medical History Medical history unknown (Acute) Surgical history unknown (Acute) Social History Social History Substance History: Unable to Obtain Smoking Status: Unknown if ever smoked How Often Do You Have a Drink Containing Alcohol: Unable to Obtain Recent Travel in [facility] within the Last 8 Weeks: No Recent Out of Country Travel within the Last 8 Weeks: No Exam Narrative Exam Narrative: GENERAL: Awake and alert, however confused. SKIN: Focused skin assessment warm/dry. No wounds or signs of infection. HEAD: Atraumatic. Normocephalic. EYES: Pupils equal and round and reactive. No scleral icterus. Extraocular movements intact. ENT: Mucous membranes pink and moist. NECK: Trachea midline. No JVD. C-collar in place. CARDIOVASCULAR: Regular rate and rhythm. No murmur appreciated. RESPIRATORY: No accessory muscle use. Clear to auscultation. Breath sounds equal bilaterally. GASTROINTESTINAL: Abdomen soft, non-tender, nondistended. MUSCULOSKELETAL: No obvious deformities. No clubbing. No cyanosis. No edema. NEUROLOGICAL: Awake and alert, but confused. No obvious cranial nerve deficits. Motor grossly within normal limits. Does not make sense when he speaks. Course Initial Documented Vital Signs Temperature 98.2 F 08/11/18 15:51 Pulse Rate 81 08/11/18 15:51 Respiratory Rate 18 08/11/18 15:51 Blood Pressure 114/69 08/11/18 15:51 Pulse Oximetry 99 08/11/18 15:51 Last Documented Vital Signs Temperature 98.2 F 08/11/18 20:10 Pulse Rate 82 08/11/18 21:10 Respiratory Rate 23 08/11/18 21:10 Blood Pressure 125/89 08/11/18 21:10 Pulse Oximetry 100 08/11/18 21:10 Medical Decision Making MDM Narrative Medical decision making narrative: Patient is a 48-year-old male brought in by EMS as a transfer from an outside facility. Patient was accepted by Dr. Isabel onto the trauma service due to subdural hematomas. Dr. Isabel will consult neurosurgery. CT C-spine ordered, shows no acute abnormalities. Chest x-ray obtained. Patient had lab work performed at the outside facility. He will be admitted for further management. Medical Screen Exam Complete: Yes Emergency Medical Condition: Yes Differential Diagnosis Differential Diagnosis: Subdural hematoma versus intraparenchymal bleed versus stroke Medical Records Medical records reviewed: Yes I reviewed the patient's medical records. Imaging Data Radiologist's impression: Cervical Spine CT 08/11/18 15:56 CONCLUSION: 1. Moderate degenerative disc disease and facet arthropathy. Mild cervical kyphosis and scoliosis. No acute fracture. Chest X-Ray 08/11/18 15:56 CONCLUSION: 1. Bihilar densities, likely representing some chronic atelectasis or scarring on the left and possibly a prominence of the central pulmonary artery on the right. Findings are similar to the prior. 2. Compensated cardiomegaly. No effusions. Head CT 08/11/18 15:56 CONCLUSION: 1. At least 3 areas of parenchymal hemorrhage in the inferior aspect of the left frontal lobe, left temporal lobe as well as the left parietal lobe as detailed above. 2. Small subdural hematoma over the left parietal convexity measuring approximately 4 mm in depth. Subdural blood also tracks along the left side of the tentorium. 3. There may be a very small, 5 to 6 mm subdural collection over the right high parietal convexities well. 4. No midline shift. Chronic deep white matter tract areas of small vessel ischemic demyelination. . ECG Data Interpretation: ECG shows atrial fibrillation at a rate of 84, right bundle branch block, no ST elevation or depression, T wave inversions in lead V2 through V6 Discharge Plan Discharge Disposition Patient Disposition: 30 Still Patient Discharge Condition Condition: Stable Discharge Details Diagnosis: Subdural hematoma, acute, Cerebral contusion Physicians Team ED Provider: Melly Good Primary Care Provider: Simone Sevilla, Attending Provider: Lupe Isabel Other Providers: Miguel Cantu ; Kervin Levin ; Kings Short ; Systems [facility] [facility] ; Dio Melvin ; Josefa Parra ; Pete Tiwari ; Jaida Shah ; Davidson Morel ; Lupe Isabel ; Levon Peoples ; Benji Martínez Discharge Interventions Interventions: ED Discharge Assessment Last Done: 08/11/18 17:50 Status ED Status: Left Department Discharge Information Discharge Date/Time: 08/11/18 17:50
--- NOTE | 2018-08-11 16:21 | XR ---
EXAM DATE: 08/11/2018 4:16 PM EDT AGE/SEX: 48 years / Male INDICATIONS: Chest pain after trauma. CLINICAL DATA: This is the patient's initial encounter. Patient reports that signs and symptoms have been present for 1 day and indicates a pain score of Nonresponsive. MEDICAL/SURGICAL HISTORY: Non-responsive. Non-responsive. COMPARISON: [facility], CHEST SINGLE AP, 11/26/2017. . FINDINGS: A single AP view of the chest demonstrates persistent bihilar infiltrates with probable atelectatic c hanges in the left perihilar distribution. Heart size is prominent but appears to be well compensated . No effusions. Osseous structures are intact. CONCLUSION: 1. Bihilar densities, likely representing some chronic atelectasis or scarring on the left and possi kimberly a prominence of the central pulmonary artery on the right. Findings are similar to the prior. 2. Compensated cardiomegaly. No effusions. Electronically signed by: Brennen Guerrero MD 08/11/2018 4:19 PM EDT
[2018-08-11] MEDS ORDERED: Bisacodyl 10 MG Supp RECTAL PRN (17:02)
[2018-08-11] MEDS ORDERED: Naloxone Inj 0.4 MG/ML Vial IV.PUSH PRN (17:02)
[2018-08-11] MEDS ORDERED: Post-op Orders (for Pharmacy) OTHER ONE (17:02)
--- NOTE | 2018-08-11 17:12 | P.PNCC ---
Subjective Brief History: 48 year-old male with intracranial bleed pradhan to a fall when intoxicated. Patient transferred here for further care. Patient has been seen at [place] numerous times for falls. Patient is awake and alert but disoriented and confused. GCS 12 Patient underwent additional studies, including CT head and c-spine. Neurosurgery consulted Admit to SICU Preliminary workup reveals Left frontal, temporal and parietal cerebral contusions and hemorrhages Left 4 mm subdural hematoma Some right cerebral small counter-coup contusions Objective Vital Signs / I&O: Vital Signs 08/11/18 15:51 Temperature 98.2 F Pulse Rate 81 Respiratory Rate 18 Blood Pressure 114/69 Pulse Oximetry 99 Intake & Output 08/10/18 08/11/18 08/11/18 18:59 06:59 18:59 Weight 83.915 kg Result Diagrams: 08/12/18 04:27 08/12/18 04:27 Imaging: Impressions Chest X-Ray 08/11/18 15:56 CONCLUSION: 1. Bihilar densities, likely representing some chronic atelectasis or scarring on the left and possibly a prominence of the central pulmonary artery on the right. Findings are similar to the prior. 2. Compensated cardiomegaly. No effusions.
--- NOTE | 2018-08-11 17:36 | CT ---
EXAM DATE: 08/11/2018 5:29 PM EDT AGE/SEX: 48 years / Male INDICATIONS: Possible fall. Transfer from [facility] with Bilateral subdural hematoma CLINICAL DATA: This is the patient's initial encounter. Patient reports that signs and symptoms have been present for 1 day and indicates a pain score of 6/10. MEDICAL/SURGICAL HISTORY: None. None. RADIATION DOSE: 41.58 CTDI (mGy) COMPARISON: [facility], CT BRAIN W/O CONTRAST, 03/31/2017. . EXTERNAL: [facility] CT Brain 2018-08-11 TECHNIQUE: CT of the head without contrast. Using automated exposure control and adjustment of the mA and/or kV according to patient size, radiation dose was kept as low as reasonably achievable to ob tain optimal diagnostic quality images. DICOM format image data is available electronically for revi ew and comparison. FINDINGS: Cerebrum: The ventricles are normal for age. There are multiple parenchymal hemorrhages with a 1.8 c m lesion in the inferior aspect of the left frontal lobe, 1.5 cm parenchymal bleed in the left tempor al lobe and a 1.4 cm parenchymal bleed in the left parietal lobe. Associated subdural hemorrhage arou nd the left parietal convexity measures approximate 4 mm in depth. There may be some minimal subdural blood along the high right parietal convexity as well. There is some subdural blood tracking along t he left side of the tentorium. No midline shift. Deep white matter tract areas of small vessel ischem ic demyelination.. Posterior Fossa: The cerebellum and brainstem are intact. The 4th ventricle is midline. The cerebe llopontine angle is unremarkable. Extracranial: The visualized portion of the orbits is intact. Skull: The calvaria is intact. No evidence of skull fracture. CONCLUSION: 1. At least 3 areas of parenchymal hemorrhage in the inferior aspect of the left frontal lobe, left temporal lobe as well as the left parietal lobe as detailed above. 2. Small subdural hematoma over the left parietal convexity measuring approximately 4 mm in depth. S ubdural blood also tracks along the left side of the tentorium. 3. There may be a very small, 5 to 6 mm subdural collection over the right high parietal convexities well. 4. No midline shift. Chronic deep white matter tract areas of small vessel ischemic demyelination. . Electronically signed by: Brennen Guerrero MD 08/11/2018 5:35 PM EDT
--- NOTE | 2018-08-11 17:46 | P.CONNS ---
History of Present Illness Service: Neurosurgery Consult date: 08/04/18 Requesting Physician: Lupe Isabel (Trauma surgery) Reason for Consult: Traumatic brain injury Primary Care Provider: Simone Sevilla History of Present Illness: 48-year-old gentleman transferred from [facility] emergency room after he presented following a fall and was found to have bilateral small acute subdural hemorrhages along with the frontal and temporal lobe contusions. Patient has moderate global aphasia and cannot relate much of a history or communicate well and follow any complex commands. Follow-up CT scan of the head to [facility] CT scan reveals stable bilateral acute small subdural hemorrhages less than 6 mm in thickness, left tentorial subdural hemorrhage along with a left frontal lobe and left temporal lobe contusions. There is no mass-effect or midline shift noted. CT of the cervical spine is pending and he is in a cervical collar. Patient was accepted by trauma surgery and neurosurgery consultation requested. Review of Systems unobtainable due to mental status (Moderate to severe aphasia) PMFSH - History History Provided By: Patient - Medical / Surgical Hx Neg / Unobtainable Medical Problems Denied: Unable to Obtain Surgical History: Unable to Obtain - Medical History Medical History: Medical History (Last Updated 08/11/18 @ 16:04 by Whitney Adler) Medical history unknown Surgical history unknown - Tobacco History Smoking Status: Unknown if ever smoked - Alcohol History How Often Do You Have a Drink Containing Alcohol: Unable to Obtain - Substance Use History Substance History: Unable to Obtain - Travel History Recent Travel in the [place] Within the Last 8 Weeks: No Recent Travel Out of the Country Within the Last 8 Weeks: No - Immunization History Tetanus Immunization: Unsure Medications and Allergies Active Medications: Active Medications Al Hydroxide/Mg Hydroxide (Milk Of Magnesia Liq) 30 ml PO Q12H PRN PRN Reason: Mild Constipation Bisacodyl (Dulcolax Supp) 10 mg RECTAL DAILY PRN PRN Reason: SEVERE CONSITIPATION Sodium Chloride (Ns Inj) 1,000 mls @ 60 mls/hr IV.CONT .[id number] [facility] Levetiracetam 500 mg/ Sodium (Chloride) 105 mls @ 400 mls/hr IV.SIG Q12H [facility] Lactulose (Lactulose Liq) 30 ml PO DAILY PRN PRN Reason: SEVERE CONSITIPATION Metoprolol Tartrate (Lopressor) 50 mg PO BID [facility] Naloxone HCl (Narcan Inj) 0.4 mg IV.PUSH UNSCH PRN PRN Reason: SEE LABEL COMMENTS Ondansetron HCl (Zofran Inj) 4 mg IV.PUSH Q6H PRN PRN Reason: NAUSEA OR VOMITING Pantoprazole Sodium (Protonix) 40 mg PO DAILY [facility] Senna/Docusate Sodium (Anum-Colace) 1 tab PO BID [facility] Sennosides (Senokot) 17.2 mg PO Q12H PRN PRN Reason: Moderate Constipation Allergies Allergy/AdvReac Type Severity Reaction Status Date / Time codeine Allergy Mild Nausea/Vomi Unverified 01/22/18 16:54 ting Home Medications Medication Instructions Recorded Confirmed Type aspirin 81 mg PO DAILY 08/11/18 History atorvastatin 40 mg PO HS 08/11/18 History furosemide 20 mg PO DAILY 08/11/18 History levetiracetam [Keppra] 500 mg PO BID 08/11/18 History levothyroxine [Synthroid] 25 mcg PO DAILY 08/11/18 History magnesium oxide 400 mg PO HS 08/11/18 History metoprolol tartrate 25 mg PO BID 08/11/18 History potassium chloride 20 meq PO DAILY 08/11/18 History thiamine HCl (vitamin B1) 100 mg PO DAILY 08/11/18 History Exam Vital signs: Vital Signs 08/11/18 15:51 08/11/18 17:00 Temperature 98.2 F Pulse Rate 81 82 Respiratory Rate 18 18 Blood Pressure 114/69 121/78 Pulse Oximetry 99 97 Intake & Output 08/10/18 08/11/18 08/11/18 18:59 06:59 18:59 Weight 83.915 kg - Constitutional no acute distress, disheveled, cooperative - Routine HEENT Exam Head: Present: normocephalic, scalp tenderness Eye: Present: EOMI, PERRL ENT: Present: mucous membranes moist, oropharynx clear, external ear normal - Routine Neck Exam Present: trachea midline, trauma (Cervical collar in place) - Routine Respiratory Exam Present: CTA bilaterally - Routine Cardiovascular Exam Present: RRR, S1, S2 - Routine Abdominal Exam Present: soft, normoactive bowel sounds - Routine Extremities Exam Present: full ROM - Routine Skin Exam Present: intact - Routine Neurological Exam Present: alert (He has difficulty expressing himself with a severe expressive aphasia as well as moderate receptive aphasia with difficulty following commands ), CN II-XII intact, plantar reflex, moving all extremities Results - Diagnostic Findings Additional findings: Impressions Chest X-Ray 08/11/18 15:56 CONCLUSION: 1. Bihilar densities, likely representing some chronic atelectasis or scarring on the left and possibly a prominence of the central pulmonary artery on the right. Findings are similar to the prior. 2. Compensated cardiomegaly. No effusions. Head CT 08/11/18 15:56 CONCLUSION: 1. At least 3 areas of parenchymal hemorrhage in the inferior aspect of the left frontal lobe, left temporal lobe as well as the left parietal lobe as detailed above. 2. Small subdural hematoma over the left parietal convexity measuring approximately 4 mm in depth. Subdural blood also tracks along the left side of the tentorium. 3. There may be a very small, 5 to 6 mm subdural collection over the right high parietal convexities well. 4. No midline shift. Chronic deep white matter tract areas of small vessel ischemic demyelination. . Assessment and Plan - Assessment (1) Subdural hematoma, acute Code(s): S06.5X9A - Traumatic subdural hemorrhage with loss of consciousness of unspecified duration, initial encounter Status: Acute (2) Cerebral contusion Code(s): S06.339A - Contusion and laceration of cerebrum, unspecified, with loss of consciousness of unspecified duration, initial encounter Status: Acute - Plan 48-year-old gentleman with a bilateral small subdural hemorrhages along with left frontal and temporal lobe contusions and associated aphasia. Monitor closely in the surgical intensive care unit. Keep head of bed elevated 30 degrees, Keppra for seizure prophylaxis, SCDs for DVT prophylaxis and gastrointestinal stress ulcer prophylaxis. Monitor closely for any alcohol withdrawal symptoms. (2) Cerebral contusion Qualifiers: Encounter type: initial encounter Laterality: left Loss of consciousness presence/duration: with LOC of unspecified duration Qualified Code(s): S06.329A - Contusion and laceration of left cerebrum with loss of consciousness of unspecified duration, initial encounter
[2018-08-11] MEDS ORDERED: Calcium Gluconate Inj 1 GM in Sodium Chlor 0.9% Inj 100 ML IV.SIG PRN (17:48)
[2018-08-11] MEDS ORDERED: Aluminum/Magnesium/Simethacone Susp 30 ML UDC PO PRN (17:48)
[2018-08-11] MEDS ORDERED: Labetalol HCl Inj 100 MG/20 ML Vial IV.PUSH PRN (17:48)
[2018-08-11] MEDS ORDERED: Magnesium Sulfate Inj 2 GM in Sodium Chlor 0.9% Inj 96 ML IV.SIG PRN (17:48)
[2018-08-11] MEDS ORDERED: Potassium Chlor 20 mEq Premix 20 MEQ/100 ML PIGGYBACK IV.SIG PRN (17:48)
[2018-08-11] MEDS ORDERED: Sod Chloride 0.9% Inj 1,000 ML IV.CONT SCH (18:00)
--- NOTE | 2018-08-11 18:10 | CT ---
EXAM DATE: 08/11/2018 5:48 PM EDT AGE/SEX: 48 years / Male INDICATIONS: Possible fall, slurred speech CLINICAL DATA: This is the patient's initial encounter. Patient reports that signs and symptoms have been present for 1 day and indicates a pain score of 0/10. MEDICAL/SURGICAL HISTORY: None. None. RADIATION DOSE: 18.61 CTDI (mGy) COMPARISON: No prior exams available for comparison. TECHNIQUE: Contiguous axial images were obtained using helical multirow detector technique. The vol umetric data was post-processed with multiplanar reconstruction in oblique axial, sagittal, and coron al planes. Using automated exposure control and adjustment of the mA and/or kV according to patient s ize, radiation dose was kept as low as reasonably achievable to obtain optimal diagnostic quality marj ges. DICOM format image data is available electronically for review and comparison. FINDINGS: At C2-3-4 there is no significant abnormality At C4-5 there is a minimal degenerative anterolisthesis without significant canal stenosis. At C5-6-C7 there is posterior osteophytic ridging without significant central canal stenosis and ther e is mild foraminal encroachment on the right side at these levels. At C7-T1 there is no significant abnormality. There is a mild cervical scoliosis. Moderate to severe facet arthropathy. Reversal of normal cervical lordosis. CONCLUSION: 1. Moderate degenerative disc disease and facet arthropathy. Mild cervical kyphosis and scoliosis. N o acute fracture. Electronically signed by: Frankie Ann MD 08/11/2018 6:08 PM EDT
[2018-08-11] MEDS: Senna/Docusate Sodium 8.6/50 MG Tablet PO SCH (20:09)
[2018-08-11] MEDS: Metoprolol Tartrate 50 MG Tablet PO SCH (20:09)
[2018-08-11] MEDS ORDERED: Metoprolol Tartrate 50 MG Tablet PO SCH (21:00)
[2018-08-11] MEDS: Multivitamin Inj 10 ML, Thiamine Inj 100 MG, Folic Acid Inj 1 MG in Sodium Chlor 0.9% I... IV.SIG SCH (22:08)
[2018-08-12 05:05] LABS: Eos # (Auto) 0.1 th/mm3 (0.0-0.4); Eos % (Auto) 3.4 % (0.0-4.0); Hematocrit 30.3 % (39.0-51.0); Hemoglobin 10.4 gm/dL (13.0-17.0); Lymph # (Auto) 0.9 th/mm3 (1.0-4.8); Lymph % (Auto) 35.5 % (9.0-44.0); Mean Corpuscular HGB Conc 34.2 % (32.0-36.0); Mean Corpuscular Hemoglobin 33.5 pg (27.0-34.0); Mean Platelet Volume 8.2 fL (7.0-11.0); Mono # (Auto) 0.3 th/mm3 (0.0-0.9); Mono % (Auto) 12.4 % (0.0-8.0); Neut # (Auto) 1.3 th/mm3 (1.8-7.7); Neut % (Auto) 47.7 % (16.0-70.0); Platelet Count 91 th/mm3 (150-450); Red Blood Count 3.09 mil/mm3 (4.50-5.90); White Blood Count 2.7 th/mm3 (4.0-11.0)
[2018-08-12 05:12] LABS: INR 1.5 Ratio; Prothrombin Time 15.5 sec (9.8-11.6)
[2018-08-12 05:23] LABS: Albumin 3.4 g/dL (3.4-5.0); Anion Gap 10 meq/L (5-15); Aspartate Aminotransferase 21 U/L (15-37); Blood Urea Nitrogen 9 mg/dL (7-18); Calcium 8.2 mg/dL (8.5-10.1); Carbon Dioxide 24.4 meq/L (21.0-32.0); Chloride 98 meq/L (98-107); Glomerular Filtration Rate Greater Than 89 mL/min (>89); Glucose,Random 65 mg/dL (74-106); Potassium 3.3 meq/L (3.5-5.1); Sodium 132 meq/L (136-145)
[2018-08-12 05:25] LABS: Alanine Aminotransferase 18 U/L (12-78)
[2018-08-12 05:27] LABS: Alkaline Phosphatase 180 U/L (45-117); Total Protein 6.9 g/dL (6.4-8.2)
--- NOTE | 2018-08-12 08:20 | P.NPEVAL ---
Patient History - Record/History Review Reason for Referral: The patient is a 48 year old unknown handed man admitted to [facility] on on transfer from another institution. The patient was found with confusion and garbled speech. Although the initial thinking was stroke, head CT showed traumatic SDH in the left frontal, temporal and parietal lobes. He is referred for baseline neurobehavioral status examination per trauma protocol to assess cognitive, behavioral and emotional aspects of the injury and to provide treatment recommendations. [facility] - History History Provided By: Patient - Medical / Surgical Hx Neg / Unobtainable Medical Problems Denied: Unable to Obtain - Medical History Medical History: Medical History (Last Reviewed 08/12/18 @ 07:38 by Kendra Tejada) Medical history unknown Surgical history unknown - Tobacco History Smoking Status: Cognitive impairment - Alcohol History How Often Do You Have a Drink Containing Alcohol: Unable to Obtain - Substance Use History Substance History: Unable to Obtain - Travel History Recent Travel in the [place] Within the Last 8 Weeks: No Recent Travel Out of the Country Within the Last 8 Weeks: No - Immunization History Tetanus Immunization: Unsure Medications Active Medications Hydrocodone Bitart/Acetaminophen ([place] 10/325) 1 tab PO Q4H PRN PRN Reason: PAIN SCALE 6 TO 10 Last Admin: 08/12/18 01:22 Dose: 1 tab Hydrocodone Bitart/Acetaminophen ([place] 5/325) 1 tab PO Q4H PRN PRN Reason: Acute Pain Al Hydrox/Mg Hydrox/Simethicone (Mag-Al Plus Susp Liq) 30 ml PO Q6H PRN PRN Reason: DYSPEPSIA Al Hydroxide/Mg Hydroxide (Milk Of Magnesia Liq) 30 ml PO Q12H [facility] Albuterol (Albuterol Neb (Prn)) 2.5 mg NEB Q4HR NEB PRN PRN Reason: WHEEZING Atorvastatin Calcium (Lipitor) 40 mg PO HS [facility] Bisacodyl (Dulcolax Supp) 10 mg RECTAL DAILY PRN PRN Reason: SEVERE CONSITIPATION Clonidine HCl (Catapres) 0.1 mg NG/OG Q6H PRN PRN Reason: SYS BP GREATER THAN 170 MMHG Sodium Chloride (Ns Inj) 1,000 mls @ 60 mls/hr IV.CONT .[id number] [facility]O Last Admin: 08/11/18 18:27 Dose: 60 mls/hr Levetiracetam 500 mg/ Sodium (Chloride) 105 mls @ 400 mls/hr IV.SIG Q12H [facility]O Last Infusion: 08/11/18 19:19 Dose: Infused Calcium Gluconate 1 gm/ Sodium (Chloride) 110 mls @ 110 mls/hr IV.SIG UNSCH PRN PRN Reason: SEE LABEL COMMENTS Magnesium Sulfate 2 gm/ Sodium (Chloride) 100 mls @ 100 mls/hr IV.SIG UNSCH PRN PRN Reason: MAGNESIUM LESS THAN 2 Potassium Chloride (Kcl 20 Meq Premix Inj) 20 meq in 100 mls @ 50 mls/hr IV.SIG UNSCH PRN PRN Reason: POTASSIUM LESS THAN 4 Last Admin: 08/12/18 05:45 Dose: 50 mls/hr Multivitamins 10 ml/ Thiamine HCl 100 mg/ Folic Acid 1 mg/Sodium Chloride 511.2 mls @ 127.8 mls/hr IV.SIG DAILY [facility] Stop: 08/13/18 20:59 Last Infusion: 08/12/18 02:31 Dose: Infused Labetalol HCl (Trandate Inj) 10 mg IV.PUSH Q1H PRN PRN Reason: SYS BP GREATER THAN 170 MMHG Lactulose (Lactulose Liq) 30 ml PO DAILY PRN PRN Reason: SEVERE CONSITIPATION Levothyroxine Sodium (Synthroid) 25 mcg PO DAILY@0600 [facility] Lorazepam (Ativan Inj) 1 mg IV.PUSH Q1H PRN PRN Reason: SEIZURES Magnesium Oxide (Mag-Ox) 400 mg PO HS [facility] Metoprolol Tartrate (Lopressor) 50 mg PO BID [facility] Last Admin: 08/11/18 20:09 Dose: 50 mg Naloxone HCl (Narcan Inj) 0.4 mg IV.PUSH UNSCH PRN PRN Reason: SEE LABEL COMMENTS Ondansetron HCl (Zofran Inj) 4 mg IV.PUSH Q6H PRN PRN Reason: NAUSEA OR VOMITING Pantoprazole Sodium (Protonix) 40 mg PO DAILY [facility] Senna/Docusate Sodium (Anum-Colace) 1 tab PO BID [facility] Last Admin: 08/11/18 20:09 Dose: 1 tab Sennosides (Senokot) 17.2 mg PO Q12H PRN PRN Reason: Moderate Constipation Mental Status Assessment - Mental Status Orientation: oriented to: Self, Place, Time, Situation Mental Status: WFL: Language/interactions, Variable: Thought processing Absent: Hallucinations, Delusions Adjustment/Coping Assessment - Adjustment/Coping Adjustment/Coping: Moderate: Awareness, Insight - Observation In terms of emotional functioning, the patient demonstrated challenges. This patient demonstrated no signs of agitation, impulsivity or disinhibition, nor was there remarkable evidence of a formal thought disorder or psychosis. There was no evidence of depression or anxiety. Thought content was free from suicidal, homicidal or paranoid ideation, and thought processes were bradyphrenic. The patients mood was apathetic, and his affect was stable and appropriate. The patient appears to possess insight and awareness into their situation and within the limits of this brief evaluation, adequate judgment. - Goals/Team Members LTG Status: Deferred STG Status: Deferred Team Members: Neuropsychologist Behavior - Behavior Treatment Engagement: Minimal - Observation Behaviorally, the patient demonstrated no signs of agitation, impulsivity or disinhibition. There was no remarkable evidence of a formal thought disorder or psychosis. - Goals LTG Status: Deferred STG Status: Deferred - Team Members Team Members: Neuropsychologist Diagnosis/Discharge Plan - Diagnosis (1) Mild neurocognitive disorder Status: Acute Impression: 48 year old male s/p TBI 2T unknown causes on 08/11/2018. [facility] Level: Level VII Maximizing Acute Care Outcome: It is recommended that the patient be monitored for emergent behavioral impulsivity as the medical condition evolves. This patients neuropathological challenges may limit rehabilitation potential going forward, and these challenges will require specialized therapeutic skills to maximize outcome. Additionally, the patients family is experiencing ongoing issues of adjustment given the traumatic nature of the injury, and they may benefit from ongoing psychological assistance. At this point in the recovery process, the patient does have cognitive capacity as the patient is unable to understand a situation and its likely consequences, and he is generally able to manipulate information rationally. Cognitive capacity will be assessed throughout the recovery process. - Discharge Planning Anticipated Problems: Ongoing areas of concern will include behavioral impulsivity, lack of insight and judgment, which is expected to improve with time and treatment. Treatment Plan: This clinician will continue to follow with you throughout the course of this patients critical care treatment, and I will be available to meet with the patients family/support system to facilitate their understanding and the ongoing care of their family member. The goals of neuropsychological intervention shall be both educational and supportive to the family/support system as is deemed clinically appropriate. Thank you for the opportunity to assist in this patients care. Levon Peoples, Ph.D., ABPP Board Certified in Clinical Neuropsychology [employer] [place] Licensed Psychologist #[id number]
[2018-08-12 08:44] LABS: Acanthocytes 1+; Ovalocytes 1+; Platelet Morphology Normal (Normal)
[2018-08-12] MEDS: Senna/Docusate Sodium 8.6/50 MG Tablet PO SCH ×2 (08:51→20:30)
--- NOTE | 2018-08-12 09:06 | P.PNNS ---
Subjective Interval history: Pt awake and alert. Complains of headache in occipital area. No n/v today. He has some repetitive speech and mild expressive aphasia. He follows commands well. <MulugetaWilliam - Last Filed: 08/12/18 08:58> Physical Exam Vital signs: Vital Signs 08/11/18 15:51 08/11/18 17:00 08/11/18 18:05 Temperature 98.2 F 98.8 F Pulse Rate 81 82 76 Respiratory Rate 18 18 16 Blood Pressure 114/69 121/78 131/86 Pulse Oximetry 99 97 94 L 08/11/18 18:08 08/11/18 18:18 08/11/18 19:00 Temperature Pulse Rate 88 78 Respiratory Rate 26 H 14 Blood Pressure 131/86 123/84 Pulse Oximetry 100 96 100 08/11/18 19:10 08/11/18 20:00 08/11/18 20:10 Temperature 98.2 F Pulse Rate 80 85 86 Respiratory Rate 16 18 18 Blood Pressure 129/78 113/88 Pulse Oximetry 100 99 100 08/11/18 21:00 08/11/18 21:10 08/11/18 22:00 Temperature Pulse Rate 85 82 76 Respiratory Rate 24 23 17 Blood Pressure 125/89 Pulse Oximetry 100 100 100 08/11/18 22:10 08/11/18 23:00 08/11/18 23:10 Temperature Pulse Rate 76 76 78 Respiratory Rate 15 27 H 20 Blood Pressure 109/67 121/77 Pulse Oximetry 100 100 100 08/12/18 00:00 08/12/18 00:10 08/12/18 01:00 Temperature 98.6 F Pulse Rate 78 77 73 Respiratory Rate 19 20 15 Blood Pressure 128/79 Pulse Oximetry 97 99 100 08/12/18 01:10 08/12/18 02:00 08/12/18 02:10 Temperature Pulse Rate 77 81 79 Respiratory Rate 15 20 13 Blood Pressure 113/78 104/77 Pulse Oximetry 100 100 97 08/12/18 03:00 08/12/18 03:10 08/12/18 03:46 Temperature Pulse Rate 75 76 Respiratory Rate 11 L 21 Blood Pressure 128/78 Pulse Oximetry 100 100 100 08/12/18 04:00 08/12/18 04:10 08/12/18 05:00 Temperature Pulse Rate 76 64 76 Respiratory Rate 22 23 19 Blood Pressure 119/78 Pulse Oximetry 100 100 88 L 08/12/18 05:10 08/12/18 07:41 Temperature Pulse Rate 75 Respiratory Rate 17 Blood Pressure 149/87 H Pulse Oximetry 92 L 99 Intake & Output 08/11/18 08/12/18 08/12/18 18:59 06:59 18:59 Intake Total 616.2 / 616.2 Output Total 650 / 650 Balance -650 / -650 616.2 / 616.2 Weight 83.915 kg 91.1 kg Intake: IV 616.2 / 616.2 MVI-12 Inj 10 ML Thiamine Inj 511.2 / 511.2 100 MG Folvite Inj 1 MG In NS Inj 500 ML @ 127.8 mls/hr IV. SIG DAILY [facility] Rx#:[id number] Keppra Inj 500 MG In NS Inj 100 105 / 105 ML @ 400 mls/hr IV.SIG Q12H [facility] Rx#:[id number] Output: Urine 650 / 650 Other: # Voids 2 - Constitutional no acute distress - Routine HEENT Exam Head: Absent: atraumatic Eye: Present: PERRL (Pupils 3mm bilaterally reactive bilaterally.). Absent: conjunctival icterus - Routine Neck Exam Absent: full ROM (cervical collar in place.) - Routine Respiratory Exam Present: CTA bilaterally. Absent: respiratory distress, rhonchi, wheezes - Routine Cardiovascular Exam Present: RRR, S1, S2. Absent: murmur - Routine Abdominal Exam Present: normoactive bowel sounds. Absent: tenderness, distended, firm - Routine Skin Exam Absent: cyanosis, erythema Comments: SCDs in place. - Routine Neurological Exam Present: alert, moving all extremities, normal tone. Absent: motor deficit, normal speech (Some expressive aphasia and repetative speech.) <William Dalal - Last Filed: 08/12/18 08:58> Vital signs: Vital Signs 08/11/18 15:51 08/11/18 17:00 08/11/18 18:05 Temperature 98.2 F 98.8 F Pulse Rate 81 82 76 Respiratory Rate 18 18 16 Blood Pressure 114/69 121/78 131/86 Pulse Oximetry 99 97 94 L 08/11/18 18:08 08/11/18 18:18 08/11/18 19:00 Temperature Pulse Rate 88 78 Respiratory Rate 26 H 14 Blood Pressure 131/86 123/84 Pulse Oximetry 100 96 100 08/11/18 19:10 08/11/18 20:00 08/11/18 20:10 Temperature 98.2 F Pulse Rate 80 85 86 Respiratory Rate 16 18 18 Blood Pressure 129/78 113/88 Pulse Oximetry 100 99 100 08/11/18 21:00 08/11/18 21:10 08/11/18 22:00 Temperature Pulse Rate 85 82 76 Respiratory Rate 24 23 17 Blood Pressure 125/89 Pulse Oximetry 100 100 100 08/11/18 22:10 08/11/18 23:00 08/11/18 23:10 Temperature Pulse Rate 76 76 78 Respiratory Rate 15 27 H 20 Blood Pressure 109/67 121/77 Pulse Oximetry 100 100 100 08/12/18 00:00 08/12/18 00:10 08/12/18 01:00 Temperature 98.6 F Pulse Rate 78 77 73 Respiratory Rate 19 20 15 Blood Pressure 128/79 Pulse Oximetry 97 99 100 08/12/18 01:10 08/12/18 02:00 08/12/18 02:10 Temperature Pulse Rate 77 81 79 Respiratory Rate 15 20 13 Blood Pressure 113/78 104/77 Pulse Oximetry 100 100 97 08/12/18 03:00 08/12/18 03:10 08/12/18 03:46 Temperature Pulse Rate 75 76 Respiratory Rate 11 L 21 Blood Pressure 128/78 Pulse Oximetry 100 100 100 08/12/18 04:00 08/12/18 04:10 08/12/18 05:00 Temperature Pulse Rate 76 64 76 Respiratory Rate 22 23 19 Blood Pressure 119/78 Pulse Oximetry 100 100 88 L 08/12/18 05:10 08/12/18 07:41 Temperature Pulse Rate 75 Respiratory Rate 17 Blood Pressure 149/87 H Pulse Oximetry 92 L 99 Intake & Output 08/11/18 08/12/18 08/12/18 18:59 06:59 18:59 Intake Total 616.2 / 616.2 Output Total 650 / 650 Balance -650 / -650 616.2 / 616.2 Weight 83.915 kg 91.1 kg Intake: IV 616.2 / 616.2 MVI-12 Inj 10 ML Thiamine Inj 511.2 / 511.2 100 MG Folvite Inj 1 MG In NS Inj 500 ML @ 127.8 mls/hr IV. SIG DAILY [facility] Rx#:[id number] Keppra Inj 500 MG In NS Inj 100 105 / 105 ML @ 400 mls/hr IV.SIG Q12H [facility] Rx#:[id number] Output: Urine 650 / 650 Other: # Voids 2 <Miguel Cantu - Last Filed: 08/12/18 10:13> Assessment and Plan - Assessment (1) Subdural hematoma, acute Code(s): S06.5X9A - Traumatic subdural hemorrhage with loss of consciousness of unspecified duration, initial encounter Status: Acute (2) Cerebral contusion Code(s): S06.339A - Contusion and laceration of cerebrum, unspecified, with loss of consciousness of unspecified duration, initial encounter Status: Acute Qualifiers: Encounter type: initial encounter Laterality: left Loss of consciousness presence/duration: with LOC of unspecified duration Qualified Code(s): S06.329A - Contusion and laceration of left cerebrum with loss of consciousness of unspecified duration, initial encounter (3) Major neurocognitive disorder as late effect of traumatic brain injury with behavioral disturbance Code(s): S06.9X9S - Unspecified intracranial injury with loss of consciousness of unspecified duration, sequela; F02.81 - Dementia in other diseases classified elsewhere with behavioral disturbance Status: Acute - Plan 48-year-old gentleman with a bilateral small subdural hemorrhages along with left frontal and temporal lobe contusions and associated aphasia. Monitor closely in the surgical intensive care unit. Keep head of bed elevated 30 degrees, Keppra for seizure prophylaxis, SCDs for DVT prophylaxis gastrointestinal stress ulcer prophylaxis. Monitor closely for any alcohol withdrawal symptoms. <William Dalal - Last Filed: 08/12/18 08:58> - Assessment (1) Subdural hematoma, acute Code(s): S06.5X9A - Traumatic subdural hemorrhage with loss of consciousness of unspecified duration, initial encounter Status: Acute (2) Cerebral contusion Code(s): S06.339A - Contusion and laceration of cerebrum, unspecified, with loss of consciousness of unspecified duration, initial encounter Status: Acute Qualifiers: Encounter type: initial encounter Laterality: left Loss of consciousness presence/duration: with LOC of unspecified duration Qualified Code(s): S06.329A - Contusion and laceration of left cerebrum with loss of consciousness of unspecified duration, initial encounter - Attending Attestation The exam, history, and the medical decision-making described in the above note were completed with the assistance of the mid-level provider. I reviewed and agree with the findings presented. I attest that I had a [id number] encounter with the patient on the same day, and personally performed and documented my assessment and findings in the medical record. <Miguel Cantu - Last Filed: 08/12/18 10:13>
[2018-08-12] MEDS: Multivitamin Inj 10 ML, Thiamine Inj 100 MG, Folic Acid Inj 1 MG in Sodium Chlor 0.9% I... IV.SIG SCH (10:16)
[2018-08-12] MEDS: Metoprolol Tartrate 50 MG Tablet PO SCH ×2 (10:16→20:30)
--- NOTE | 2018-08-12 11:15 | P.PNCC ---
Subjective Brief History: 48 year-old male with intracranial bleed pradhan to a fall when intoxicated. Patient transferred here for further care. Patient has been seen at [facility] numerous times for falls. Patient is awake and alert but disoriented and confused. GCS 12 Patient underwent additional studies, including CT head and c-spine. Neurosurgery consulted Admit to SICU Preliminary workup reveals Left frontal, temporal and parietal cerebral contusions and hemorrhages Left 4 mm subdural hematoma Some right cerebral small counter-coup contusions 24 Hour Review/Hospital Course: 08/12/2018 48-year-old male who was heavily intoxicated and fell. Sustained above-noted injuries to the brain Patient is now awake alert oriented stating that he blacked out and had a "" seizure" Neurologically patient is intact CN II to XII are normal Motoric strength bilateral equal Normal deep tendon reflexes No lateralization no drift No other injuries noted to chest abdomen or pelvis Plan Continue antiseizure medication and keep on Keppra Transfer to floor Banana bag PT OT Likely patient will be discharged in next 24-48 hours Objective Vital Signs / I&O: Vital Signs 08/11/18 15:51 08/11/18 17:00 08/11/18 18:05 Temperature 98.2 F 98.8 F Pulse Rate 81 82 76 Respiratory Rate 18 18 16 Blood Pressure 114/69 121/78 131/86 Pulse Oximetry 99 97 94 L 08/11/18 18:08 08/11/18 18:18 08/11/18 19:00 Temperature Pulse Rate 88 78 Respiratory Rate 26 H 14 Blood Pressure 131/86 123/84 Pulse Oximetry 100 96 100 08/11/18 19:10 08/11/18 20:00 08/11/18 20:10 Temperature 98.2 F Pulse Rate 80 85 86 Respiratory Rate 16 18 18 Blood Pressure 129/78 113/88 Pulse Oximetry 100 99 100 08/11/18 21:00 08/11/18 21:10 08/11/18 22:00 Temperature Pulse Rate 85 82 76 Respiratory Rate 24 23 17 Blood Pressure 125/89 Pulse Oximetry 100 100 100 08/11/18 22:10 08/11/18 23:00 08/11/18 23:10 Temperature Pulse Rate 76 76 78 Respiratory Rate 15 27 H 20 Blood Pressure 109/67 121/77 Pulse Oximetry 100 100 100 08/12/18 00:00 08/12/18 00:10 08/12/18 01:00 Temperature 98.6 F Pulse Rate 78 77 73 Respiratory Rate 19 20 15 Blood Pressure 128/79 Pulse Oximetry 97 99 100 08/12/18 01:10 08/12/18 02:00 08/12/18 02:10 Temperature Pulse Rate 77 81 79 Respiratory Rate 15 20 13 Blood Pressure 113/78 104/77 Pulse Oximetry 100 100 97 08/12/18 03:00 08/12/18 03:10 08/12/18 03:46 Temperature Pulse Rate 75 76 Respiratory Rate 11 L 21 Blood Pressure 128/78 Pulse Oximetry 100 100 100 08/12/18 04:00 08/12/18 04:10 08/12/18 05:00 Temperature Pulse Rate 76 64 76 Respiratory Rate 22 23 19 Blood Pressure 119/78 Pulse Oximetry 100 100 88 L 08/12/18 05:10 08/12/18 07:41 Temperature Pulse Rate 75 Respiratory Rate 17 Blood Pressure 149/87 H Pulse Oximetry 92 L 99 Intake & Output 08/11/18 08/12/18 08/12/18 18:59 06:59 18:59 Intake Total 616.2 / 616.2 Output Total 650 / 650 Balance -650 / -650 616.2 / 616.2 Weight 83.915 kg 91.1 kg Intake: IV 616.2 / 616.2 MVI-12 Inj 10 ML Thiamine Inj 511.2 / 511.2 100 MG Folvite Inj 1 MG In NS Inj 500 ML @ 127.8 mls/hr IV. SIG DAILY CHACHO Rx#:[id number] Keppra Inj 500 MG In NS Inj 100 105 / 105 ML @ 400 mls/hr IV.SIG Q12H [facility]O Rx#:[id number] Output: Urine 650 / 650 Other: # Voids 2 Result Diagrams: 08/12/18 04:27 08/12/18 04:27 Imaging: Impressions Cervical Spine CT 08/11/18 15:56 CONCLUSION: 1. Moderate degenerative disc disease and facet arthropathy. Mild cervical kyphosis and scoliosis. No acute fracture. Chest X-Ray 08/11/18 15:56 CONCLUSION: 1. Bihilar densities, likely representing some chronic atelectasis or scarring on the left and possibly a prominence of the central pulmonary artery on the right. Findings are similar to the prior. 2. Compensated cardiomegaly. No effusions. Head CT 08/11/18 15:56 CONCLUSION: 1. At least 3 areas of parenchymal hemorrhage in the inferior aspect of the left frontal lobe, left temporal lobe as well as the left parietal lobe as detailed above. 2. Small subdural hematoma over the left parietal convexity measuring approximately 4 mm in depth. Subdural blood also tracks along the left side of the tentorium. 3. There may be a very small, 5 to 6 mm subdural collection over the right high parietal convexities well. 4. No midline shift. Chronic deep white matter tract areas of small vessel ischemic demyelination. . Assessment and Plan Attestation: Critical care time 34 minutes
--- NOTE | 2018-08-12 11:44 | MH ---
cc: Lupe Isabel MD DATE OF ADMISSION: 08/11/2018 ADMITTING DIAGNOSIS: Brain trauma. HISTORY OF PRESENT ILLNESS: This 48-year-old male apparently fell somehow at home. He was, at that time, heavily intoxicated, questionable seizure. The patient is now transferred to our institution for further care. On arrival, the patient is awake, alert, but disoriented and confused with Shanon scale about 11-12. He was worked up, and found to have left frontotemporal and parietal cerebral contusions and hemorrhages, small subdural hematoma, and some right cerebral contrecoup contusions as well. He was admitted to ICU for further care. PAST MEDICAL HISTORY: Severe alcoholism and [place] Act admissions to this institution, as well as history of elevated liver function studies. The patient has been admitted to this hospital numerous times for alcoholism and as consequence of the same SURGICAL HISTORY: Unknown. ALLERGIES: UNKNOWN. MEDICATIONS: Unknown. PHYSICAL EXAMINATION: GENERAL: Reveals a 48-year-old male. HEENT: Normocephalic. Trauma to the head, consistent with bruising over the face, and over the head, mainly localized to the right and left orbital areas and forehead. No active bleeding. Pupils are equal and reactive. Extraocular muscles appear to be intact. The patient is not following any commands. He has no hemotympanum, gil sign, although there is blood in the right ear, which we cleared. NECK: Bilateral carotid pulses. No bruits. CHEST: Bilateral breath sounds. HEART: Regular rate and rhythm. No signs of trauma to the chest. ABDOMEN: Soft with active bowel sounds. No signs of trauma to the abdomen. EXTREMITIES: The patient has bilateral femoral, popliteal, dorsalis pedis, and posterior tibial pulses. Some bruising noted over both hands, but no deformities or fractures. BACK: Normal. IMPRESSION: A 48-year-old male, heavily intoxicated with intracranial bleed due to fall. PLAN: He will be admitted to ICU. Neurosurgery was consulted. The patient was placed on Keppra prophylactically for there is no documentation of any seizure that I can see nonetheless. Further care for clinical indices. CRITICAL CARE TIME: 34 minutes. MD MICHAEL Logan/rh , 11:25 AM , 11:35 AM
[2018-08-12] MEDS: Magnesium Oxide 400 MG Tablet PO SCH (20:30)
[2018-08-13 05:21] LABS: Baso % (Auto) 0.8 % (0.0-2.0); Eos # (Auto) 0.1 th/mm3 (0.0-0.4); Eos % (Auto) 2.4 % (0.0-4.0); Hematocrit 30.1 % (39.0-51.0); Hemoglobin 10.3 gm/dL (13.0-17.0); Lymph % (Auto) 28.9 % (9.0-44.0); Mean Corpuscular HGB Conc 34.2 % (32.0-36.0); Mean Corpuscular Hemoglobin 33.3 pg (27.0-34.0); Mean Corpuscular Volume 97.3 fL (80.0-100.0); Mono # (Auto) 0.4 th/mm3 (0.0-0.9); Neut # (Auto) 1.9 th/mm3 (1.8-7.7); Neut % (Auto) 54.9 % (16.0-70.0); Platelet Count 104 th/mm3 (150-450); Red Cell Distribution Width 16.2 % (11.6-17.2); White Blood Count 3.4 th/mm3 (4.0-11.0)
[2018-08-13 05:48] LABS: Alanine Aminotransferase 19 U/L (12-78); Albumin 3.4 g/dL (3.4-5.0); Anion Gap 8 meq/L (5-15); Aspartate Aminotransferase 19 U/L (15-37); Blood Urea Nitrogen 8 mg/dL (7-18); Calcium 8.3 mg/dL (8.5-10.1); Carbon Dioxide 27.1 meq/L (21.0-32.0); Chloride 101 meq/L (98-107); Glomerular Filtration Rate Greater Than 89 mL/min (>89); Glucose,Random 82 mg/dL (74-106); Potassium 3.9 meq/L (3.5-5.1); Sodium 136 meq/L (136-145)
[2018-08-13 05:51] LABS: Alkaline Phosphatase 190 U/L (45-117); Total Protein 7.1 g/dL (6.4-8.2)
[2018-08-13] MEDS: Senna/Docusate Sodium 8.6/50 MG Tablet PO SCH ×2 (09:04→20:51)
[2018-08-13] MEDS: Metoprolol Tartrate 50 MG Tablet PO SCH ×2 (09:04→21:18)
--- NOTE | 2018-08-13 10:25 | P.PNCC ---
Subjective Brief History: 48 year-old male with intracranial bleed pradhan to a fall when intoxicated. Patient transferred here for further care. Patient has been seen at [facility] numerous times for falls. Patient is awake and alert but disoriented and confused. GCS 12 Patient underwent additional studies, including CT head and c-spine. Neurosurgery consulted Admit to SICU Preliminary workup reveals Left frontal, temporal and parietal cerebral contusions and hemorrhages Left 4 mm subdural hematoma Some right cerebral small counter-coup contusions 24 Hour Review/Hospital Course: 08/12/2018 48-year-old male who was heavily intoxicated and fell. Sustained above-noted injuries to the brain Patient is now awake alert oriented stating that he blacked out and had a "" seizure" Neurologically patient is intact CN II to XII are normal Motoric strength bilateral equal Normal deep tendon reflexes No lateralization no drift No other injuries noted to chest abdomen or pelvis Plan Continue antiseizure medication and keep on Keppra Transfer to floor Banana bag PT OT Likely patient will be discharged in next 24-48 hours 08/13/2018 Patient is awake alert and oriented Tolerating p.o. diet Patient ambulating out of bed not very steady on his feet initially but then improved Patient does not require hospitalization anymore but he is homeless so there is no place to send him Awaiting floor bed since yesterday and from the air case management will have to make some arrangements to get patient to a homeless group home Objective Vital Signs / I&O: Vital Signs 08/12/18 11:00 08/12/18 11:10 08/12/18 12:00 Temperature Pulse Rate 71 67 68 Respiratory Rate 16 17 11 L Blood Pressure 114/78 Pulse Oximetry 100 100 98 08/12/18 12:10 08/12/18 13:00 08/12/18 13:10 Temperature Pulse Rate 68 68 90 Respiratory Rate 24 12 28 H Blood Pressure 138/87 104/73 Pulse Oximetry 100 100 100 08/12/18 14:00 08/12/18 14:10 08/12/18 15:00 Temperature Pulse Rate 75 81 97 H Respiratory Rate 14 14 11 L Blood Pressure 118/70 Pulse Oximetry 94 L 98 92 L 08/12/18 15:10 08/12/18 16:00 08/12/18 16:10 Temperature Pulse Rate 87 85 87 Respiratory Rate 15 15 19 Blood Pressure 94/66 L 112/71 Pulse Oximetry 98 97 97 08/12/18 17:00 08/12/18 17:10 08/12/18 18:00 Temperature Pulse Rate 83 101 H 79 Respiratory Rate 20 23 14 Blood Pressure 118/83 Pulse Oximetry 89 L 95 100 08/12/18 18:10 08/12/18 19:00 08/12/18 19:10 Temperature Pulse Rate 83 83 85 Respiratory Rate 17 13 14 Blood Pressure 104/72 115/78 Pulse Oximetry 96 99 98 08/12/18 20:00 08/12/18 20:10 08/12/18 20:50 Temperature Pulse Rate 112 H 79 Respiratory Rate 31 H 13 Blood Pressure 115/87 Pulse Oximetry 100 99 100 08/12/18 21:00 08/12/18 21:10 08/12/18 22:00 Temperature 98.1 F Pulse Rate 82 81 74 Respiratory Rate 16 12 14 Blood Pressure 115/87 119/92 H Pulse Oximetry 99 98 98 08/12/18 22:10 08/12/18 23:00 08/13/18 00:00 Temperature Pulse Rate 74 80 81 Respiratory Rate 12 37 H 14 Blood Pressure 111/81 Pulse Oximetry 98 97 93 L 08/13/18 01:00 08/13/18 02:00 08/13/18 02:10 Temperature Pulse Rate 81 79 77 Respiratory Rate 24 16 18 Blood Pressure 96/68 L Pulse Oximetry 92 L 97 93 L 08/13/18 03:00 08/13/18 04:00 08/13/18 05:00 Temperature Pulse Rate 78 72 73 Respiratory Rate 14 26 H 23 Blood Pressure 107/55 L 108/75 Pulse Oximetry 99 95 99 08/13/18 06:00 08/13/18 08:00 Temperature 98.3 F Pulse Rate 70 77 Respiratory Rate 12 18 Blood Pressure 151/72 H Pulse Oximetry 99 100 Intake & Output 08/12/18 08/13/18 08/13/18 18:59 06:59 18:59 Intake Total 1716.2 / 1716.2 905 / 905 Output Total 1875 / 1875 Balance 1716.2 / 1716.2 -970 / -970 Weight 93.6 kg Intake: IV 1716.2 / 1716.2 105 / 105 MVI-12 Inj 10 ML Thiamine Inj 511.2 / 511.2 100 MG Folvite Inj 1 MG In NS Inj 500 ML @ 127.8 mls/hr IV. SIG DAILY [facility]ACHO Rx#:[id number] KCl 20 mEq Premix Inj 20 meq In 100 / 100 100 ml @ 50 mls/hr IV.SIG UNSCH PRN Rx#:[id number] Keppra Inj 500 MG In NS Inj 100 105 / 105 105 / 105 ML @ 400 mls/hr IV.SIG Q12H [facility]ACHO Rx#:[id number] Oral 800 / 800 Output: Urine 1875 / 1875 Other: # Voids 1 Date of Last Bowel Movement 08/13/18 # Bowel Movements 1 Weight On Admission 91.1 kg Result Diagrams: 08/13/18 04:50 08/13/18 04:50 Disinhibition Score: 14.00 Aggression Score: 14.00 Lability Score: 14.00 Agitated Behavior Total Score: 14
[2018-08-13] MEDS: Multivitamin Inj 10 ML, Thiamine Inj 100 MG, Folic Acid Inj 1 MG in Sodium Chlor 0.9% I... IV.SIG SCH (11:00)
--- NOTE | 2018-08-13 13:00 | P.PNNS ---
Subjective Interval history: Confused, feels like there is water in his left ear Physical Exam Vital signs: Vital Signs 08/12/18 13:00 08/12/18 13:10 08/12/18 14:00 Temperature Pulse Rate 68 90 75 Respiratory Rate 12 28 H 14 Blood Pressure 104/73 Pulse Oximetry 100 100 94 L 08/12/18 14:10 08/12/18 15:00 08/12/18 15:10 Temperature Pulse Rate 81 97 H 87 Respiratory Rate 14 11 L 15 Blood Pressure 118/70 94/66 L Pulse Oximetry 98 92 L 98 08/12/18 16:00 08/12/18 16:10 08/12/18 17:00 Temperature Pulse Rate 85 87 83 Respiratory Rate 15 19 20 Blood Pressure 112/71 Pulse Oximetry 97 97 89 L 08/12/18 17:10 08/12/18 18:00 08/12/18 18:10 Temperature Pulse Rate 101 H 79 83 Respiratory Rate 23 14 17 Blood Pressure 118/83 104/72 Pulse Oximetry 95 100 96 08/12/18 19:00 08/12/18 19:10 08/12/18 20:00 Temperature Pulse Rate 83 85 112 H Respiratory Rate 13 14 31 H Blood Pressure 115/78 Pulse Oximetry 99 98 100 08/12/18 20:10 08/12/18 20:50 08/12/18 21:00 Temperature 98.1 F Pulse Rate 79 82 Respiratory Rate 13 16 Blood Pressure 115/87 115/87 Pulse Oximetry 99 100 99 08/12/18 21:10 08/12/18 22:00 08/12/18 22:10 Temperature Pulse Rate 81 74 74 Respiratory Rate 12 14 12 Blood Pressure 119/92 H 111/81 Pulse Oximetry 98 98 98 08/12/18 23:00 08/13/18 00:00 08/13/18 01:00 Temperature Pulse Rate 80 81 81 Respiratory Rate 37 H 14 24 Blood Pressure Pulse Oximetry 97 93 L 92 L 08/13/18 02:00 08/13/18 02:10 08/13/18 03:00 Temperature Pulse Rate 79 77 78 Respiratory Rate 16 18 14 Blood Pressure 96/68 L 107/55 L Pulse Oximetry 97 93 L 99 08/13/18 04:00 08/13/18 05:00 08/13/18 06:00 Temperature Pulse Rate 72 73 70 Respiratory Rate 26 H 23 12 Blood Pressure 108/75 Pulse Oximetry 95 99 99 08/13/18 08:00 Temperature 98.3 F Pulse Rate 77 Respiratory Rate 18 Blood Pressure 151/72 H Pulse Oximetry 100 Intake & Output 08/12/18 08/13/18 08/13/18 18:59 06:59 18:59 Intake Total 1716.2 / 1716.2 905 / 905 Output Total 1875 / 1875 Balance 1716.2 / 1716.2 -970 / -970 Weight 93.6 kg Intake: IV 1716.2 / 1716.2 105 / 105 MVI-12 Inj 10 ML Thiamine Inj 511.2 / 511.2 100 MG Folvite Inj 1 MG In NS Inj 500 ML @ 127.8 mls/hr IV. SIG DAILY CHACHO Rx#:[id number] KCl 20 mEq Premix Inj 20 meq In 100 / 100 100 ml @ 50 mls/hr IV.SIG UNSCH PRN Rx#:[id number] Keppra Inj 500 MG In NS Inj 100 105 / 105 105 / 105 ML @ 400 mls/hr IV.SIG Q12H [facility]ACHO Rx#:[id number] Oral 800 / 800 Output: Urine 5 / 1875 Other: # Voids 1 Date of Last Bowel Movement 08/13/18 # Bowel Movements 1 Weight On Admission 91.1 kg Narrative: A&O x 3 CN Intact Motor 5/5 UE/LE Assessment and Plan - Assessment (1) Subdural hematoma, acute Code(s): S06.5X9A - Traumatic subdural hemorrhage with loss of consciousness of unspecified duration, initial encounter Status: Acute (2) Cerebral contusion Code(s): S06.339A - Contusion and laceration of cerebrum, unspecified, with loss of consciousness of unspecified duration, initial encounter Status: Acute Qualifiers: Encounter type: initial encounter Laterality: left Loss of consciousness presence/duration: with LOC of unspecified duration Qualified Code(s): S06.329A - Contusion and laceration of left cerebrum with loss of consciousness of unspecified duration, initial encounter - Plan 48-year-old gentleman with a bilateral small subdural hemorrhages along with left frontal and temporal lobe contusions and associated aphasia. May transfer out Keppra for seizure prophylaxis, SCDs for DVT prophylaxis Monitor closely for any alcohol withdrawal symptoms.
[2018-08-13] MEDS: Magnesium Oxide 400 MG Tablet PO SCH (20:50)
[2018-08-14 05:08] LABS: Baso % (Auto) 0.7 % (0.0-2.0); Eos # (Auto) 0.1 th/mm3 (0.0-0.4); Eos % (Auto) 2.4 % (0.0-4.0); Hematocrit 33.1 % (39.0-51.0); Lymph % (Auto) 35.2 % (9.0-44.0); Mean Corpuscular HGB Conc 33.3 % (32.0-36.0); Mean Corpuscular Hemoglobin 33.5 pg (27.0-34.0); Mean Corpuscular Volume 100.7 fL (80.0-100.0); Mean Platelet Volume 8.4 fL (7.0-11.0); Mono # (Auto) 0.3 th/mm3 (0.0-0.9); Mono % (Auto) 12.7 % (0.0-8.0); Neut # (Auto) 1.3 th/mm3 (1.8-7.7); Platelet Count 102 th/mm3 (150-450); Red Blood Count 3.29 mil/mm3 (4.50-5.90); Red Cell Distribution Width 16.5 % (11.6-17.2); White Blood Count 2.7 th/mm3 (4.0-11.0)
[2018-08-14 05:34] LABS: Alanine Aminotransferase 18 U/L (12-78); Albumin 3.6 g/dL (3.4-5.0); Anion Gap 7 meq/L (5-15); Aspartate Aminotransferase 20 U/L (15-37); Blood Urea Nitrogen 8 mg/dL (7-18); Calcium 8.8 mg/dL (8.5-10.1); Carbon Dioxide 26.5 meq/L (21.0-32.0); Chloride 103 meq/L (98-107); Glomerular Filtration Rate 85 mL/min (>89); Glucose,Random 73 mg/dL (74-106); Potassium 4.4 meq/L (3.5-5.1); Sodium 136 meq/L (136-145)
[2018-08-14 05:36] LABS: Alkaline Phosphatase 205 U/L (45-117); Total Protein 7.4 g/dL (6.4-8.2)
[2018-08-14] MEDS: Metoprolol Tartrate 25 MG Tablet PO SCH ×2 (08:05→20:01)
[2018-08-14] MEDS: Senna/Docusate Sodium 8.6/50 MG Tablet PO SCH ×2 (08:05→20:01)
--- NOTE | 2018-08-14 10:37 | P.PNCC ---
Subjective Brief History: 48 year-old male with intracranial bleed pradhan to a fall when intoxicated. Patient transferred here for further care. Patient has been seen at [facility] numerous times for falls. Patient is awake and alert but disoriented and confused. GCS 12 Patient underwent additional studies, including CT head and c-spine. Neurosurgery consulted Admit to SICU Preliminary workup reveals Left frontal, temporal and parietal cerebral contusions and hemorrhages Left 4 mm subdural hematoma Some right cerebral small counter-coup contusions 24 Hour Review/Hospital Course: 08/12/2018 48-year-old male who was heavily intoxicated and fell. Sustained above-noted injuries to the brain Patient is now awake alert oriented stating that he blacked out and had a "" seizure" Neurologically patient is intact CN II to XII are normal Motoric strength bilateral equal Normal deep tendon reflexes No lateralization no drift No other injuries noted to chest abdomen or pelvis Plan Continue antiseizure medication and keep on Keppra Transfer to floor Banana bag PT OT Likely patient will be discharged in next 24-48 hours 08/13/2018 Patient is awake alert and oriented Tolerating p.o. diet Patient ambulating out of bed not very steady on his feet initially but then improved Patient does not require hospitalization anymore but he is homeless so there is no place to send him Awaiting floor bed since yesterday and from the air case management will have to make some arrangements to get patient to a homeless fpc 08/14/2018 Patient is awake alert oriented but occasionally confused Tolerating diet well Hemodynamically stable on antihypertensives Bilateral breath sounds Patient refuses to get out of bed and has to be prompted to comply with therapy He does not require hospitalization or ICU care at this time but patient has no place to go He will need to be placed in a fpc kush bed or a fpc eventually Objective Vital Signs / I&O: Vital Signs 08/13/18 11:00 08/13/18 12:00 08/13/18 13:00 Temperature 97.6 F Pulse Rate 74 70 71 Respiratory Rate 11 L 0 L 13 Blood Pressure 95/66 L 119/73 Pulse Oximetry 98 99 100 08/13/18 14:00 08/13/18 15:00 08/13/18 16:00 Temperature 98.2 F Pulse Rate 94 H Respiratory Rate Blood Pressure 111/67 101/71 Pulse Oximetry 95 98 08/13/18 17:18 08/13/18 18:14 08/13/18 21:00 Temperature 98.4 F Pulse Rate 66 68 Respiratory Rate 11 L 18 18 Blood Pressure 100/71 Pulse Oximetry 99 98 08/14/18 01:00 08/14/18 05:00 08/14/18 06:53 Temperature 95.7 F L 99 F Pulse Rate 70 83 Respiratory Rate 19 20 14 Blood Pressure 105/76 98/67 L Pulse Oximetry 98 100 08/14/18 08:00 08/14/18 08:34 08/14/18 09:00 Temperature 98.4 F Pulse Rate 71 Respiratory Rate 14 13 Blood Pressure 121/84 Pulse Oximetry 93 L 94 L Intake & Output 08/13/18 08/14/18 08/14/18 18:59 06:59 18:59 Intake Total 1068.8 / 1068.8 605 / 605 105 / 105 Output Total 780 / 780 Balance 288.8 / 288.8 605 / 605 105 / 105 Weight 92.3 kg Intake: IV 588.8 / 588.8 105 / 105 105 / 105 MVI-12 Inj 10 ML Thiamine Inj 488.8 / 488.8 100 MG Folvite Inj 1 MG In NS Inj 500 ML @ 127.8 mls/hr IV. SIG DAILY [facility]ACHO Rx#:[id number] Keppra Inj 500 MG In NS Inj 100 100 / 100 105 / 105 105 / 105 ML @ 400 mls/hr IV.SIG Q12H [facility]O Rx#:[id number] Oral 480 / 480 500 / 500 Output: Urine 780 / 780 Other: # Voids 4 Date of Last Bowel Movement 08/13/18 08/13/18 08/13/18 # Incontinent Bowel Movements 1 Result Diagrams: 08/14/18 03:43 08/14/18 03:43 Disinhibition Score: 14.00 Aggression Score: 14.00 Lability Score: 14.00 Agitated Behavior Total Score: 14
--- NOTE | 2018-08-14 17:53 | OTSOAPIP ---
TIME SESSION COMPLETED: AM TREATMENT TIME: 0 MINS. CHART REVIEWED. ATTEMPTED TO SEE PATIENT HOWEVER PATIENT WAS RECEIVING NURSING CARE PLAN: WILL SEE WHEN ABLE OR NEXT TREATMENT DAY Therapist: Ewa Davis Signature on file
[2018-08-14] MEDS: Magnesium Oxide 400 MG Tablet PO SCH (20:01)
[2018-08-15 05:23] LABS: Eos # (Auto) 0.1 th/mm3 (0.0-0.4); Eos % (Auto) 2.1 % (0.0-4.0); Hematocrit 31.9 % (39.0-51.0); Hemoglobin 10.8 gm/dL (13.0-17.0); Lymph # (Auto) 0.9 th/mm3 (1.0-4.8); Lymph % (Auto) 35.8 % (9.0-44.0); Mean Corpuscular HGB Conc 33.7 % (32.0-36.0); Mean Corpuscular Hemoglobin 33.6 pg (27.0-34.0); Mean Corpuscular Volume 99.8 fL (80.0-100.0); Mean Platelet Volume 8.1 fL (7.0-11.0); Mono # (Auto) 0.3 th/mm3 (0.0-0.9); Mono % (Auto) 11.1 % (0.0-8.0); Neut # (Auto) 1.3 th/mm3 (1.8-7.7); Platelet Count 105 th/mm3 (150-450); Red Cell Distribution Width 16.6 % (11.6-17.2); White Blood Count 2.6 th/mm3 (4.0-11.0)
[2018-08-15 05:46] LABS: Albumin 3.6 g/dL (3.4-5.0); Anion Gap 8 meq/L (5-15); Aspartate Aminotransferase 18 U/L (15-37); Blood Urea Nitrogen 10 mg/dL (7-18); Calcium 8.7 mg/dL (8.5-10.1); Carbon Dioxide 25.8 meq/L (21.0-32.0); Chloride 103 meq/L (98-107); Glomerular Filtration Rate Greater Than 89 mL/min (>89); Glucose,Random 68 mg/dL (74-106); Potassium 4.4 meq/L (3.5-5.1); Sodium 137 meq/L (136-145)
[2018-08-15 06:02] LABS: Alanine Aminotransferase 18 U/L (12-78); Alkaline Phosphatase 206 U/L (45-117); Total Protein 7.2 g/dL (6.4-8.2)
--- NOTE | 2018-08-15 08:09 | P.PNNPSY ---
- Cognitive Moderate: Cognitive, Attention/concentration, Confused/orientation, Insight/ awareness, Judgment/problem solving, Memory - Psychosocial Severe: Psychosocial, Family/other adjustment, Realistic expectation - Progress Notes/Response to Treatment Contents of Sessions: Adjustment, Level of consciousness Time with Patient: 30 minutes Premorbid Psychological Status: Premorbid Cognitive, Emotional and Behavioral Status: Tenuous. The patient has high school years of education and an unknown work history prior to this injury. The patient has questionable prior psychiatric difficulties, as described above. Substance abuse history is unclear. Behavioral Reactions of Patient and Family/Support System: Tenuous. The patients family is experiencing ongoing issues of adjustment given the nature of the injury, and this aspect of recovery will require ongoing monitoring. Emotional/Behavioral Status of Patient and Family/Support System: Tenuous. Pertinent issues, if appropriate to this patients clinical care, are described in detail above. Maximizing Acute Care Outcome: It is recommended that the patient be monitored for emergent behavioral impulsivity as the medical condition evolves. This patients neuropathological challenges may limit rehabilitation potential going forward, and these challenges will require specialized therapeutic skills to maximize outcome. Additionally, the patients family is experiencing ongoing issues of adjustment given the traumatic nature of the injury, and they may benefit from ongoing psychological assistance. At this point in the recovery process, the patient does have cognitive capacity as the patient is unable to understand a situation and its likely consequences, and he is generally able to manipulate information rationally. Cognitive capacity will be assessed throughout the recovery process. Anticipated Problems: Ongoing areas of concern will include behavioral impulsivity, lack of insight and judgment, which is expected to improve with time and treatment. Treatment Plan: This clinician will continue to follow with you throughout the course of this patients critical care treatment, and I will be available to meet with the patients family/support system to facilitate their understanding and the ongoing care of their family member. The goals of neuropsychological intervention shall be both educational and supportive to the family/support system as is deemed clinically appropriate. [place] COG Scale: Level V Disinhibition Score: 14.00 Aggression Score: 14.00 Lability Score: 14.00 Agitated Behavior Total Score: 14 Impression: 48 year old male s/p TBI 2T unknown causes on 08/11/2018. Progress Note Narrative: PTD 4. The patient is awake but confused. No agitation/restlessness. ABS = 14 (14,14,14). He's [place]. He awaits disposition. I will follow. - Diagnosis (1) Mild neurocognitive disorder Status: Acute
[2018-08-15] MEDS: Metoprolol Tartrate 25 MG Tablet PO SCH ×2 (08:53→20:43)
[2018-08-15] MEDS: Senna/Docusate Sodium 8.6/50 MG Tablet PO SCH ×2 (08:53→20:41)
--- NOTE | 2018-08-15 10:54 | P.PNNS ---
Subjective Interval history: Pt awake and alert. Sitting on edge of bed eating breakfast. Complains of some headache but biggest complaint is decreased hearing in left ear and feels like it is full. No drainage. Pt has expressive aphasia. <William Dalal - Last Filed: 08/15/18 10:51> Physical Exam Vital signs: Vital Signs 08/14/18 13:00 08/14/18 17:00 08/14/18 20:02 Temperature 98.6 F 98.2 F Pulse Rate 74 85 Respiratory Rate 18 17 17 Blood Pressure 101/65 123/63 Pulse Oximetry 100 100 08/14/18 20:30 08/14/18 21:00 08/15/18 00:00 Temperature 98.4 F Pulse Rate 77 Respiratory Rate 17 17 Blood Pressure 124/80 Pulse Oximetry 96 95 08/15/18 01:00 08/15/18 04:00 08/15/18 05:00 Temperature 98.3 F 98.6 F Pulse Rate 78 98 H Respiratory Rate 17 17 11 L Blood Pressure 123/74 105/81 Pulse Oximetry 95 97 08/15/18 10:18 Temperature Pulse Rate Respiratory Rate 21 Blood Pressure Pulse Oximetry Intake & Output 08/14/18 08/15/18 08/15/18 18:59 06:59 18:59 Intake Total 430 / 430 825 / 825 105 / 105 Output Total 375 / 375 425 / 425 Balance 55 / 55 400 / 400 105 / 105 Weight 93.4 kg Intake: IV 105 / 105 105 / 105 105 / 105 Keppra Inj 500 MG In NS Inj 100 105 / 105 105 / 105 105 / 105 ML @ 400 mls/hr IV.SIG Q12H [facility] Rx#:[id number] Oral 325 / 325 720 / 720 Output: Urine 375 / 375 425 / 425 Other: # Voids 3 3 Date of Last Bowel Movement 08/13/18 08/14/19 # Bowel Movements 1 1 # Incontinent Bowel Movements 1 1 - Constitutional no acute distress, cooperative - Routine HEENT Exam Eye: Present: PERRL (Pupils 2mm bilaterally.). Absent: conjunctival icterus ENT: Present: oropharynx clear - Routine Neck Exam Present: supple - Routine Respiratory Exam Present: CTA bilaterally. Absent: respiratory distress, rhonchi, wheezes - Routine Cardiovascular Exam Present: RRR, S1, S2. Absent: murmur - Routine Abdominal Exam Present: soft, normoactive bowel sounds. Absent: distended, firm - Routine Extremities Exam Absent: cyanosis - Routine Skin Exam Absent: cyanosis, erythema - Routine Neurological Exam Present: alert, moving all extremities. Absent: motor deficit, altered mental status, normal speech (Mild to moderate expressive aphasia.) - Routine Psychiatric Exam Present: normal affect, cooperative. Absent: anxious, agitated <William Dalal - Last Filed: 08/15/18 10:51> Vital signs: Vital Signs 08/14/18 20:02 08/14/18 20:30 08/14/18 21:00 Temperature 98.4 F Pulse Rate 77 Respiratory Rate 17 17 Blood Pressure 124/80 Pulse Oximetry 96 95 08/15/18 00:00 08/15/18 01:00 08/15/18 04:00 Temperature 98.3 F Pulse Rate 78 Respiratory Rate 17 17 17 Blood Pressure 123/74 Pulse Oximetry 95 08/15/18 05:00 08/15/18 07:39 08/15/18 08:00 Temperature 98.6 F 97.7 F Pulse Rate 98 H 80 90 Respiratory Rate 11 L 18 21 Blood Pressure 105/81 100/70 Pulse Oximetry 97 98 08/15/18 09:00 08/15/18 10:00 08/15/18 10:08 Temperature Pulse Rate 85 88 96 H Respiratory Rate 14 19 25 H Blood Pressure 116/80 Pulse Oximetry 08/15/18 10:18 08/15/18 12:00 Temperature 97.7 F Pulse Rate 76 Respiratory Rate 21 16 Blood Pressure 107/71 Pulse Oximetry 100 Intake & Output 08/14/18 08/15/18 08/15/18 18:59 06:59 18:59 Intake Total 430 / 430 825 / 825 105 / 105 Output Total 375 / 375 425 / 425 Balance 55 / 55 400 / 400 105 / 105 Weight 93.4 kg Intake: IV 105 / 105 105 / 105 105 / 105 Keppra Inj 500 MG In NS Inj 100 105 / 105 105 / 105 105 / 105 ML @ 400 mls/hr IV.SIG Q12H [facility] Rx#:[id number] Oral 325 / 325 720 / 720 Output: Urine 375 / 375 425 / 425 Other: # Voids 3 3 Date of Last Bowel Movement 08/13/18 08/14/19 # Bowel Movements 1 1 # Incontinent Bowel Movements 1 1 <Miguel Cantu - Last Filed: 08/15/18 17:06> Assessment and Plan - Assessment (1) Subdural hematoma, acute Code(s): S06.5X9A - Traumatic subdural hemorrhage with loss of consciousness of unspecified duration, initial encounter Status: Acute (2) Cerebral contusion Code(s): S06.339A - Contusion and laceration of cerebrum, unspecified, with loss of consciousness of unspecified duration, initial encounter Status: Acute (3) Major neurocognitive disorder as late effect of traumatic brain injury with behavioral disturbance Code(s): S06.9X9S - Unspecified intracranial injury with loss of consciousness of unspecified duration, sequela; F02.81 - Dementia in other diseases classified elsewhere with behavioral disturbance Status: Acute - Plan 48-year-old gentleman with a bilateral small subdural hemorrhages along with left frontal and temporal lobe contusions and associated aphasia. [facility], SCDs for DVT prophylaxis Monitor closely for any alcohol withdrawal symptoms. <William Dalal - Last Filed: 08/15/18 10:51> - Assessment (1) Subdural hematoma, acute Code(s): S06.5X9A - Traumatic subdural hemorrhage with loss of consciousness of unspecified duration, initial encounter Status: Acute (2) Cerebral contusion Code(s): S06.339A - Contusion and laceration of cerebrum, unspecified, with loss of consciousness of unspecified duration, initial encounter Status: Acute Qualifiers: Encounter type: initial encounter Laterality: left Loss of consciousness presence/duration: with LOC of unspecified duration Qualified Code(s): S06.329A - Contusion and laceration of left cerebrum with loss of consciousness of unspecified duration, initial encounter - Attending Attestation The exam, history, and the medical decision-making described in the above note were completed with the assistance of the mid-level provider. I reviewed and agree with the findings presented. I attest that I had a [id number] encounter with the patient on the same day, and personally performed and documented my assessment and findings in the medical record. <Miguel Cantu - Last Filed: 08/15/18 17:06>
--- NOTE | 2018-08-15 11:00 | P.PNCC ---
Subjective Brief History: [place]: This ia a 48 year-old male with intracranial bleed due to a fall when intoxicated. Patient transferred here for further care. Patient has been seen at [facility] numerous times for falls. Patient is awake and alert but disoriented and confused. GCS 12 Patient underwent additional studies, including CT head and c-spine. Neurosurgery consulted Admit to SICU Preliminary workup reveals Left frontal, temporal and parietal cerebral contusions and hemorrhages Left 4 mm subdural hematoma Some right cerebral small counter-coup contusions 24 Hour Review/Hospital Course: 08/12/2018 48-year-old male who was heavily intoxicated and fell. Sustained above-noted injuries to the brain Patient is now awake alert oriented stating that he blacked out and had a "" seizure" Neurologically patient is intact CN II to XII are normal Motoric strength bilateral equal Normal deep tendon reflexes No lateralization no drift No other injuries noted to chest abdomen or pelvis Plan Continue antiseizure medication and keep on Keppra Transfer to floor Banana bag PT OT Likely patient will be discharged in next 24-48 hours 08/13/2018 Patient is awake alert and oriented Tolerating p.o. diet Patient ambulating out of bed not very steady on his feet initially but then improved Patient does not require hospitalization anymore but he is homeless so there is no place to send him Awaiting floor bed since yesterday and from the air case management will have to make some arrangements to get patient to a homeless alf 08/14/2018 Patient is awake alert oriented but occasionally confused Tolerating diet well Hemodynamically stable on antihypertensives Bilateral breath sounds Patient refuses to get out of bed and has to be prompted to comply with therapy He does not require hospitalization or ICU care at this time but patient has no place to go He will need to be placed in a [facility] bed or a alf eventually 08/15/2018 Patient sitting up in bed. No distress noted. No acute events overnight No complaints offered. Will complete follow-up CT brain today Objective Vital Signs / I&O: Vital Signs 08/14/18 13:00 08/14/18 17:00 08/14/18 20:02 Temperature 98.6 F 98.2 F Pulse Rate 74 85 Respiratory Rate 18 17 17 Blood Pressure 101/65 123/63 Pulse Oximetry 100 100 08/14/18 20:30 08/14/18 21:00 08/15/18 00:00 Temperature 98.4 F Pulse Rate 77 Respiratory Rate 17 17 Blood Pressure 124/80 Pulse Oximetry 96 95 08/15/18 01:00 08/15/18 04:00 08/15/18 05:00 Temperature 98.3 F 98.6 F Pulse Rate 78 98 H Respiratory Rate 17 17 11 L Blood Pressure 123/74 105/81 Pulse Oximetry 95 97 08/15/18 10:18 Temperature Pulse Rate Respiratory Rate 21 Blood Pressure Pulse Oximetry Intake & Output 08/14/18 08/15/18 08/15/18 18:59 06:59 18:59 Intake Total 430 / 430 825 / 825 105 / 105 Output Total 375 / 375 425 / 425 Balance 55 / 55 400 / 400 105 / 105 Weight 93.4 kg Intake: IV 105 / 105 105 / 105 105 / 105 Keppra Inj 500 MG In NS Inj 100 105 / 105 105 / 105 105 / 105 ML @ 400 mls/hr IV.SIG Q12H [facility] Rx#:[id number] Oral 325 / 325 720 / 720 Output: Urine 375 / 375 425 / 425 Other: # Voids 3 3 Date of Last Bowel Movement 08/13/18 08/14/19 # Bowel Movements 1 1 # Incontinent Bowel Movements 1 1 Result Diagrams: 08/15/18 04:05 08/15/18 04:05 Disinhibition Score: 14.00 Aggression Score: 14.00 Lability Score: 14.00 Agitated Behavior Total Score: 14 Objective Remarks: GENERAL: This is a 48-year-old male lying in bed. No distress noted. SKIN: Warm and dry. HEAD: Atraumatic. Normocephalic. EYES: PERRLA ENT: No nasal bleeding or discharge. Mucous membranes pink and moist. NECK: Trachea midline. No JVD. CARDIOVASCULAR: Regular rate and rhythm. RESPIRATORY: No accessory muscle use. Lungs are clear to auscultation. Breath sounds equal bilaterally. No distress or dyspnea. GASTROINTESTINAL: BS + x 4 quads. Abdomen soft, non-tender, nondistended. MUSCULOSKELETAL: Extremities without cyanosis, or edema. + peripheral pulses x 4 extremities. Warm with good capillary refill and sensation. MAEW. NEUROLOGICAL: Awake and alert. Normal speech and pattern. Assessment and Plan - Assessment (1) Subdural hematoma, acute Code(s): S06.5X9A - Traumatic subdural hemorrhage with loss of consciousness of unspecified duration, initial encounter Status: Acute (2) Cerebral contusion Code(s): S06.339A - Contusion and laceration of cerebrum, unspecified, with loss of consciousness of unspecified duration, initial encounter Status: Acute (3) Major neurocognitive disorder as late effect of traumatic brain injury with behavioral disturbance Code(s): S06.9X9S - Unspecified intracranial injury with loss of consciousness of unspecified duration, sequela; F02.81 - Dementia in other diseases classified elsewhere with behavioral disturbance Status: Acute (4) Mild neurocognitive disorder Code(s): G31.84 - Mild cognitive impairment, so stated Status: Acute Plan: [place]: This is a 48-year-old male who sustained a mechanical fall. Positive EtOH. Trauma transfer from [facility]. INJURIES: LEFT frontal / temporal and parietal cerebral contusions/hemorrhages Bilateral SDH Counter coup contusions PMHx: Frequent falls. ETOH. HTN. HLD. Hypothyroid. Procedures: Consults: Neurosurgery. Rehab medicine. Neuropsych. Case management. Diet: Regular diet. Tolerating po diet. Encourage good po intake with each meal. Pulmonary: Encourage good pulmonary toileting. IS at bedside and pt encouraged to use. Rationale for use explained to patient, and verbalized understanding. PAIN Management: Esmond 5-10 mg q4h. SEIZURES: Ativan 1 mg q 1h. Activity: OOB. PT and OT ordered. Patient needs much encouragement to participate in with PT. GI prophylaxis: Protonix 40 mg po Bowel regimen: Anum-colace. MOM. Lactulose PRN. Senna PRN. Bisacodyl PRN. LBM: 08/14 DVT prophylaxis: Mechanical VTE with SCDs. Chemical management contraindicated at this time due to SDH. DC Planning: Case management consulted for assistance with final discharge disposition. Patient is homeless, and he wants to return living "on the sidewalk." Emotional support provided to patient at bedside and plan of care discussed. Discussed with RN at bedside. Discussed pt condition and plan of care with collaborating trauma surgeon. Patient is hemodynamically stable in the ICU and therefore can be transferred and and managed on the med/surg floor. The trauma team will round each day, and evaluate plan of care on a daily basis. LEFT frontal / temporal and parietal cerebral contusions/hemorrhages Bilateral SDH Counter coup contusions Neurosurgery consulted and assisting in management and care Supportive care CT brain for any change in neurological status 08/15: f/u CT brain pending Pain management Encourage out of bed PT and OT ordered Bowel regimen Mechanical DVT prophylaxis Seizure precautions Seizure prophylaxis - Jerira Neuropsych consulted and assisting in management care HTN HLD Vital signs every 4 hours Resume home medications Lopressor 25 mg BID. Catapress 0.1 mg q6h PRN. T Trandate 10mg q1h PRN. statin ETOH abuse Supportive care Monitor for DT's Seizure precautions Ativan PRN for seizures MVI x 3 days - complete Neuropsych consulted and assisting in management care Counseled regarding abstaining from alcohol. (2) Cerebral contusion Qualifiers: Encounter type: initial encounter Laterality: left Loss of consciousness presence/duration: with LOC of unspecified duration Qualified Code(s): S06.329A - Contusion and laceration of left cerebrum with loss of consciousness of unspecified duration, initial encounter
--- NOTE | 2018-08-15 14:07 | CT ---
EXAM DATE: 08/15/2018 1:59 PM EDT AGE/SEX: 48 years / Male INDICATIONS: Follow up intracranial hemorrhage after head injury CLINICAL DATA: This is the patient's initial encounter. Patient reports that signs and symptoms have been present for 1 day and indicates a pain score of 3/10. MEDICAL/SURGICAL HISTORY: None. None. RADIATION DOSE: 56.35 CTDI (mGy) COMPARISON: [facility], CT HEAD W/O CONTRAST, 08/11/2018. . TECHNIQUE: CT of the head without contrast. Using automated exposure control and adjustment of the mA and/or kV according to patient size, radiation dose was kept as low as reasonably achievable to ob tain optimal diagnostic quality images. DICOM format image data is available electronically for revi ew and comparison. FINDINGS: Intraparenchymal hemorrhages are again noted in the left frontal, temporal and parietal lobes. There is mildly increased surrounding edema. The hemorrhages are not significantly changed in size. There a re no new areas of intraparenchymal hemorrhage. The small high right subdural hemorrhage is unchanged and best seen on axial image #59. The larger left subdural hemorrhage is slightly smaller in size. T he ventricular system remains within normal limits. There is mild atrophy and chronic small vessel is chemic changes. The bone windows demonstrate no evidence of acute fracture. There is opacification of the left mastoi d air cells which is new from the prior study. There is no visualized fracture in this region. CONCLUSION: 1. Increased edema surrounding the areas of intraparenchymal hemorrhage in the left temporal, fronta l and parietal lobes. 2. Small high right subdural hematoma without significant change. 3. The larger left subdural hematoma appears smaller in size than on the prior study. 4. No new hemorrhage or mass effect. 5. The left mastoid air cells are now opacified. . Electronically signed by: Inder Begum MD 08/15/2018 2:06 PM EDT
--- NOTE | 2018-08-15 17:53 | ECG ---
Date Performed: 08/11/2018 Time Performed: 16:19:33 PTAGE: 48 years EKG: ATRIAL FIBRILLATION MARKED RIGHT AXIS DEVIATION RIGHT BUNDLE BRANCH BLOCK MODERATE T-WAVE A BNORMALITY, CONSIDER LATERAL ISCHEMIA ABNORMAL ECG PREVIOUS TRACING : 01/22/2018 17.55 Since the previous tracing, no significant change noted DOCTOR: Ralph Rodriguez Interpretating Date/Time 08/15/2018 17:52:17
[2018-08-15] MEDS: Magnesium Oxide 400 MG Tablet PO SCH (20:40)
[2018-08-16 04:26] LABS: Eos % (Auto) 1.7 % (0.0-4.0); Hematocrit 31.2 % (39.0-51.0); Hemoglobin 10.5 gm/dL (13.0-17.0); Lymph % (Auto) 36.5 % (9.0-44.0); Mean Corpuscular HGB Conc 33.6 % (32.0-36.0); Mean Corpuscular Hemoglobin 33.4 pg (27.0-34.0); Mean Corpuscular Volume 99.5 fL (80.0-100.0); Mean Platelet Volume 8.2 fL (7.0-11.0); Mono # (Auto) 0.3 th/mm3 (0.0-0.9); Mono % (Auto) 12.3 % (0.0-8.0); Neut # (Auto) 1.3 th/mm3 (1.8-7.7); Neut % (Auto) 48.5 % (16.0-70.0); Platelet Count 104 th/mm3 (150-450); Red Blood Count 3.13 mil/mm3 (4.50-5.90); Red Cell Distribution Width 16.5 % (11.6-17.2); White Blood Count 2.7 th/mm3 (4.0-11.0)
[2018-08-16 04:46] LABS: Albumin 3.5 g/dL (3.4-5.0); Anion Gap 6 meq/L (5-15); Aspartate Aminotransferase 23 U/L (15-37); Blood Urea Nitrogen 12 mg/dL (7-18); Calcium 8.8 mg/dL (8.5-10.1); Carbon Dioxide 26.9 meq/L (21.0-32.0); Chloride 101 meq/L (98-107); Glomerular Filtration Rate Greater Than 89 mL/min (>89); Glucose,Random 64 mg/dL (74-106); Potassium 4.3 meq/L (3.5-5.1); Sodium 134 meq/L (136-145)
[2018-08-16 04:48] LABS: Alanine Aminotransferase 17 U/L (12-78)
[2018-08-16 04:50] LABS: Alkaline Phosphatase 204 U/L (45-117); Total Protein 7.1 g/dL (6.4-8.2)
--- NOTE | 2018-08-16 08:07 | P.PNNPSY ---
- Behavior Mild: Impulsive/agitated - Progress Notes/Response to Treatment Contents of Sessions: Adjustment, Level of consciousness Time with Patient: 30 minutes Premorbid Psychological Status: Premorbid Cognitive, Emotional and Behavioral Status: Tenuous. The patient has high school years of education and an unknown work history prior to this injury. The patient has questionable prior psychiatric difficulties, as described above. Substance abuse history is unclear. Behavioral Reactions of Patient and Family/Support System: Tenuous. The patients family is experiencing ongoing issues of adjustment given the nature of the injury, and this aspect of recovery will require ongoing monitoring. Emotional/Behavioral Status of Patient and Family/Support System: Tenuous. Pertinent issues, if appropriate to this patients clinical care, are described in detail above. Maximizing Acute Care Outcome: It is recommended that the patient be monitored for emergent behavioral impulsivity as the medical condition evolves. This patients neuropathological challenges may limit rehabilitation potential going forward, and these challenges will require specialized therapeutic skills to maximize outcome. Additionally, the patients family is experiencing ongoing issues of adjustment given the traumatic nature of the injury, and they may benefit from ongoing psychological assistance. At this point in the recovery process, the patient does have cognitive capacity as the patient is unable to understand a situation and its likely consequences, and he is generally able to manipulate information rationally. Cognitive capacity will be assessed throughout the recovery process. Anticipated Problems: Ongoing areas of concern will include behavioral impulsivity, lack of insight and judgment, which is expected to improve with time and treatment. Treatment Plan: This clinician will continue to follow with you throughout the course of this patients critical care treatment, and I will be available to meet with the patients family/support system to facilitate their understanding and the ongoing care of their family member. The goals of neuropsychological intervention shall be both educational and supportive to the family/support system as is deemed clinically appropriate. [place] COG Scale: Level IV Disinhibition Score: 22.75 Aggression Score: 14.00 Lability Score: 23.32 Agitated Behavior Total Score: 21 Impression: 48 year old male s/p TBI 2T unknown causes on 08/11/2018. Progress Note Narrative: PTD 5. The patient is awake, somewhat confused. Mild agitation noted, with ABS = 21 (22.8,14,23.3). F/U Head CT showed increased edema around the hemorrhage in the left frontal, temporal and parietal lobes. His increased agitation at this point is suggestive of TITA. Consider valium taper with Keppra adjunct, unless medically contraindicated. He is Rancho IV, but the agitation may be related to causes other than TBI. I will follow. - Diagnosis (1) Mild neurocognitive disorder Status: Acute
[2018-08-16] MEDS: Metoprolol Tartrate 25 MG Tablet PO SCH ×2 (09:18→20:23)
[2018-08-16] MEDS: Senna/Docusate Sodium 8.6/50 MG Tablet PO SCH ×2 (09:18→20:22)
--- NOTE | 2018-08-16 09:27 | P.PNNS ---
Subjective Interval history: Pt awake and alert. complains of Left ear feeling blocked, diminished hearing. Mild to moderate expressive aphasia. Mild frontal H/A. No n/v. <William Dalal - Last Filed: 08/16/18 09:22> Physical Exam Vital signs: Vital Signs 08/15/18 10:00 08/15/18 10:08 08/15/18 10:18 Temperature Pulse Rate 88 96 H Respiratory Rate 19 25 H 21 Blood Pressure 116/80 Pulse Oximetry 08/15/18 12:00 08/15/18 16:55 08/15/18 20:00 Temperature 97.7 F 98.0 F 97.9 F Pulse Rate 76 75 88 Respiratory Rate 16 13 21 Blood Pressure 107/71 126/80 140/90 Pulse Oximetry 100 97 87 L 08/16/18 00:00 08/16/18 04:00 Temperature 97.9 F 98.2 F Pulse Rate 78 75 Respiratory Rate 19 20 Blood Pressure 122/82 117/85 Pulse Oximetry 94 L 94 L Intake & Output 08/15/18 08/16/18 08/16/18 18:59 06:59 18:59 Intake Total 825 / 825 705 / 705 Output Total 500 / 500 570 / 570 Balance 325 / 325 135 / 135 Weight 95.1 kg Intake: IV 105 / 105 105 / 105 Keppra Inj 500 MG In NS Inj 100 105 / 105 105 / 105 ML @ 400 mls/hr IV.SIG Q12H [facility] Rx#:[id number] Oral 720 / 720 600 / 600 Output: Urine 500 / 500 570 / 570 Other: Date of Last Bowel Movement 08/14/19 - Constitutional no acute distress - Routine HEENT Exam Head: Absent: atraumatic (mild abrasion occipital aspect of head.) Eye: Present: PERRL (Pupils 3mm bilaterally reactive bilaterally.) - Routine Respiratory Exam Present: CTA bilaterally. Absent: respiratory distress, rhonchi, wheezes - Routine Cardiovascular Exam Present: RRR, S1, S2. Absent: murmur - Routine Abdominal Exam Present: soft, normoactive bowel sounds. Absent: tenderness, distended - Routine Skin Exam Absent: cyanosis, erythema - Routine Neurological Exam Present: alert, moving all extremities. Absent: sensory deficit, motor deficit , hearing grossly intact (Diminished left ear to finger rub.), facial asymmetry , normal speech - Routine Psychiatric Exam Present: normal affect, cooperative. Absent: anxious, agitated <William Dalal - Last Filed: 08/16/18 09:22> Vital signs: Vital Signs 08/15/18 16:55 08/15/18 20:00 08/16/18 00:00 Temperature 98.0 F 97.9 F 97.9 F Pulse Rate 75 88 78 Respiratory Rate 13 21 19 Blood Pressure 126/80 140/90 122/82 Pulse Oximetry 97 87 L 94 L 08/16/18 04:00 08/16/18 08:00 08/16/18 09:50 Temperature 98.2 F 97 F L Pulse Rate 75 78 Respiratory Rate 20 12 16 Blood Pressure 117/85 141/97 H Pulse Oximetry 94 L 96 08/16/18 12:00 Temperature 97.2 F L Pulse Rate 80 Respiratory Rate 16 Blood Pressure 127/83 Pulse Oximetry 95 Intake & Output 08/15/18 08/16/18 08/16/18 18:59 06:59 18:59 Intake Total 825 / 825 705 / 705 Output Total 500 / 500 570 / 570 Balance 325 / 325 135 / 135 Weight 95.1 kg Intake: IV 105 / 105 105 / 105 Keppra Inj 500 MG In NS Inj 100 105 / 105 105 / 105 ML @ 400 mls/hr IV.SIG Q12H [facility] Rx#:[id number] Oral 720 / 720 600 / 600 Output: Urine 500 / 500 570 / 570 Other: Date of Last Bowel Movement 08/14/19 08/14/19 <Miguel Cantu - Last Filed: 08/16/18 13:29> Assessment and Plan - Assessment (1) Subdural hematoma, acute Code(s): S06.5X9A - Traumatic subdural hemorrhage with loss of consciousness of unspecified duration, initial encounter Status: Acute (2) Cerebral contusion Code(s): S06.339A - Contusion and laceration of cerebrum, unspecified, with loss of consciousness of unspecified duration, initial encounter Status: Acute Qualifiers: Encounter type: initial encounter Laterality: left Loss of consciousness presence/duration: with LOC of unspecified duration Qualified Code(s): S06.329A - Contusion and laceration of left cerebrum with loss of consciousness of unspecified duration, initial encounter (3) Major neurocognitive disorder as late effect of traumatic brain injury with behavioral disturbance Code(s): S06.9X9S - Unspecified intracranial injury with loss of consciousness of unspecified duration, sequela; F02.81 - Dementia in other diseases classified elsewhere with behavioral disturbance Status: Acute - Plan 48-year-old gentleman with a bilateral small subdural hemorrhages along with left frontal and temporal lobe contusions and associated aphasia. Transfer to floor. Keppra for seizure prophylaxis, SCDs for DVT prophylaxis Monitor closely for any alcohol withdrawal symptoms. <Wliliam Dalal - Last Filed: 08/16/18 09:22> - Assessment (1) Subdural hematoma, acute Code(s): S06.5X9A - Traumatic subdural hemorrhage with loss of consciousness of unspecified duration, initial encounter Status: Acute (2) Cerebral contusion Code(s): S06.339A - Contusion and laceration of cerebrum, unspecified, with loss of consciousness of unspecified duration, initial encounter Status: Acute Qualifiers: Qualified Code(s): S06.329A - Contusion and laceration of left cerebrum with loss of consciousness of unspecified duration, initial encounter - Attending Attestation The exam, history, and the medical decision-making described in the above note were completed with the assistance of the mid-level provider. I reviewed and agree with the findings presented. I attest that I had a [id number] encounter with the patient on the same day, and personally performed and documented my assessment and findings in the medical record. <Miguel Cantu - Last Filed: 08/16/18 13:29>
[2018-08-16] MEDS ORDERED: Sod Chloride 0.9% Inj 1,000 ML IV.SIG SCH (09:30)
--- NOTE | 2018-08-16 13:29 | P.PNCC ---
Subjective Brief History: [place]: This ia a 48 year-old male with intracranial bleed due to a fall when intoxicated. Patient transferred here for further care. Patient has been seen at [facility] numerous times for falls. Patient is awake and alert but disoriented and confused. GCS 12 Patient underwent additional studies, including CT head and c-spine. Neurosurgery consulted Admit to SICU Preliminary workup reveals Left frontal, temporal and parietal cerebral contusions and hemorrhages Left 4 mm subdural hematoma Some right cerebral small counter-coup contusions 24 Hour Review/Hospital Course: 08/12/2018 48-year-old male who was heavily intoxicated and fell. Sustained above-noted injuries to the brain Patient is now awake alert oriented stating that he blacked out and had a "" seizure" Neurologically patient is intact CN II to XII are normal Motoric strength bilateral equal Normal deep tendon reflexes No lateralization no drift No other injuries noted to chest abdomen or pelvis Plan Continue antiseizure medication and keep on Keppra Transfer to floor Banana bag PT OT Likely patient will be discharged in next 24-48 hours 08/13/2018 Patient is awake alert and oriented Tolerating p.o. diet Patient ambulating out of bed not very steady on his feet initially but then improved Patient does not require hospitalization anymore but he is homeless so there is no place to send him Awaiting floor bed since yesterday and from the air case management will have to make some arrangements to get patient to a homeless long-term 08/14/2018 Patient is awake alert oriented but occasionally confused Tolerating diet well Hemodynamically stable on antihypertensives Bilateral breath sounds Patient refuses to get out of bed and has to be prompted to comply with therapy He does not require hospitalization or ICU care at this time but patient has no place to go He will need to be [facility] in a [facility] or a long-term eventually 08/15/2018 Patient sitting up in bed. No distress noted. No acute events overnight No complaints offered. Will complete follow-up CT brain today 08/16 No acute events overnight, FU CT scan shows evolution of the injury call worker person working on placement Patient is cleared for floor Objective Vital Signs / I&O: Vital Signs 08/15/18 16:55 08/15/18 20:00 08/16/18 00:00 Temperature 98.0 F 97.9 F 97.9 F Pulse Rate 75 88 78 Respiratory Rate 13 21 19 Blood Pressure 126/80 140/90 122/82 Pulse Oximetry 97 87 L 94 L 08/16/18 04:00 08/16/18 08:00 08/16/18 09:50 Temperature 98.2 F 97 F L Pulse Rate 75 78 Respiratory Rate 20 12 16 Blood Pressure 117/85 141/97 H Pulse Oximetry 94 L 96 08/16/18 12:00 Temperature 97.2 F L Pulse Rate 80 Respiratory Rate 16 Blood Pressure 127/83 Pulse Oximetry 95 Intake & Output 08/15/18 08/16/18 08/16/18 18:59 06:59 18:59 Intake Total 825 / 825 705 / 705 Output Total 500 / 500 570 / 570 Balance 325 / 325 135 / 135 Weight 95.1 kg Intake: IV 105 / 105 105 / 105 Keppra Inj 500 MG In NS Inj 100 105 / 105 105 / 105 ML @ 400 mls/hr IV.SIG Q12H [facility] Rx#:[id number] Oral 720 / 720 600 / 600 Output: Urine 500 / 500 570 / 570 Other: Date of Last Bowel Movement 08/14/19 08/14/19 Result Diagrams: 08/16/18 03:21 08/16/18 03:21 Imaging: Impressions Head CT 08/15/18 10:12 CONCLUSION: 1. Increased edema surrounding the areas of intraparenchymal hemorrhage in the left temporal, frontal and parietal lobes. 2. Small high right subdural hematoma without significant change. 3. The larger left subdural hematoma appears smaller in size than on the prior study. 4. No new hemorrhage or mass effect. 5. The left mastoid air cells are now opacified. . Disinhibition Score: 22.75 Aggression Score: 14.00 Lability Score: 23.32 Agitated Behavior Total Score: 21 - Exam MORTGAGE ADVISOR: GCS 15 with some aphasia Hemodynamic/Cardiac: stable Pulmonary/Respiratory: clear BS Abdomen/GI Nutrition: soft- Assessment and Plan - Assessment (1) Subdural hematoma, acute Code(s): S06.5X9A - Traumatic subdural hemorrhage with loss of consciousness of unspecified duration, initial encounter Status: Acute (2) Cerebral contusion Code(s): S06.339A - Contusion and laceration of cerebrum, unspecified, with loss of consciousness of unspecified duration, initial encounter Status: Acute (3) Major neurocognitive disorder as late effect of traumatic brain injury with behavioral disturbance Code(s): S06.9X9S - Unspecified intracranial injury with loss of consciousness of unspecified duration, sequela; F02.81 - Dementia in other diseases classified elsewhere with behavioral disturbance Status: Acute (4) Mild neurocognitive disorder Code(s): G31.84 - Mild cognitive impairment, so stated Status: Acute Plan: [place]: This is a 48-year-old male who sustained a mechanical fall. Positive EtOH. Trauma transfer from [facility]. INJURIES: LEFT frontal / temporal and parietal cerebral contusions/hemorrhages Bilateral SDH Counter coup contusions PMHx: Frequent falls. ETOH. HTN. HLD. Hypothyroid. Procedures: Consults: Neurosurgery. Rehab medicine. Neuropsych. Case management. Diet: Regular diet. Tolerating po diet. Encourage good po intake with each meal. Pulmonary: Encourage good pulmonary toileting. IS at bedside and pt encouraged to use. Rationale for use explained to patient, and verbalized understanding. PAIN Management: [place] 5-10 mg q4h. SEIZURES: Ativan 1 mg q 1h. Activity: OOB. PT and OT ordered. Patient needs much encouragement to participate in with PT. GI prophylaxis: Protonix 40 mg po Bowel regimen: Anum-colace. MOM. Lactulose PRN. Senna PRN. Bisacodyl PRN. LBM: 08/14 DVT prophylaxis: Mechanical VTE with SCDs. Chemical management contraindicated at this time due to SDH. DC Planning: Case management consulted for assistance with final discharge disposition. Patient is homeless, and he wants to return living "on the sidewalk." Emotional support provided to patient at bedside and plan of care discussed. Discussed with RN at bedside. Discussed pt condition and plan of care with collaborating trauma surgeon. Patient is hemodynamically stable in the ICU and therefore can be transferred and and managed on the med/surg floor. The trauma team will round each day, and evaluate plan of care on a daily basis. LEFT frontal / temporal and parietal cerebral contusions/hemorrhages Bilateral SDH Counter coup contusions Neurosurgery consulted and assisting in management and care Supportive care CT brain for any change in neurological status 08/15: f/u CT brain pending Pain management Encourage out of bed PT and OT ordered Bowel regimen Mechanical DVT prophylaxis Seizure precautions Seizure prophylaxis - Jack Neuropsych consulted and assisting in management care HTN HLD Vital signs every 4 hours Resume home medications Lopressor 25 mg BID. Catapress 0.1 mg q6h PRN. T Trandate 10mg q1h PRN. statin ETOH abuse Supportive care Monitor for DT's Seizure precautions Ativan PRN for seizures MVI x 3 days - alysa Neuropsych consulted and assisting in management care Counseled regarding abstaining from alcohol. (2) Cerebral contusion Qualifiers: Encounter type: initial encounter Laterality: left Loss of consciousness presence/duration: with LOC of unspecified duration Qualified Code(s): S06.329A - Contusion and laceration of left cerebrum with loss of consciousness of unspecified duration, initial encounter
--- NOTE | 2018-08-16 16:30 | OTSOAPIP ---
TIME SESSION COMPLETED: AM TREATMENT TIME: 0 MINS. CHART REVIEWED. PATIENT FOUND A SLEEP ATTEMPTED TO WAKE UP PATIENT, PATIENT WOULD OPEN EYES AND MUMBLE AND FALL BACK TO SLEEP. MULTIPLE ATTEMPTED MADE. NURSING IS AWARE. WILL SEE PATIENT NEXT TREATMENT DAY. INTERDISCIPLINARY COMMUNICATION: NURSING AWARE OF THE ABOVE Therapist: Ewa Davis Signature on file
[2018-08-16] MEDS: levETIRAcetam 250 MG Tablet PO SCH (20:22)
[2018-08-16] MEDS: Magnesium Oxide 400 MG Tablet PO SCH (20:23)
[2018-08-17 04:46] LABS: Albumin 3.6 g/dL (3.4-5.0); Anion Gap 8 meq/L (5-15); Aspartate Aminotransferase 21 U/L (15-37); Blood Urea Nitrogen 11 mg/dL (7-18); Calcium 8.9 mg/dL (8.5-10.1); Carbon Dioxide 24.9 meq/L (21.0-32.0); Chloride 101 meq/L (98-107); Glomerular Filtration Rate Greater Than 89 mL/min (>89); Glucose,Random 74 mg/dL (74-106); Potassium 4.8 meq/L (3.5-5.1); Sodium 134 meq/L (136-145)
[2018-08-17 04:47] LABS: Alanine Aminotransferase 16 U/L (12-78)
[2018-08-17 04:49] LABS: Alkaline Phosphatase 205 U/L (45-117); Total Protein 7.3 g/dL (6.4-8.2)
--- NOTE | 2018-08-17 08:12 | P.PNNPSY ---
- Behavior Intact: Impulsive/agitated - Progress Notes/Response to Treatment Contents of Sessions: Adjustment, Level of consciousness Time with Patient: 30 minutes Premorbid Psychological Status: Premorbid Cognitive, Emotional and Behavioral Status: Tenuous. The patient has high school years of education and an unknown work history prior to this injury. The patient has questionable prior psychiatric difficulties, as described above. Substance abuse history is unclear. Behavioral Reactions of Patient and Family/Support System: Tenuous. The patients family is experiencing ongoing issues of adjustment given the nature of the injury, and this aspect of recovery will require ongoing monitoring. In fact, as of the time of this last report, there is no family available for this patient. Emotional/Behavioral Status of Patient and Family/Support System: Tenuous. Pertinent issues, if appropriate to this patients clinical care, are described in detail above. Maximizing Acute Care Outcome: It is recommended that the patient be monitored for emergent behavioral impulsivity as the medical condition evolves. This patients neuropathological challenges may limit rehabilitation potential going forward, and these challenges will require specialized therapeutic skills to maximize outcome. Additionally, the patients family is experiencing ongoing issues of adjustment given the traumatic nature of the injury, and they may benefit from ongoing psychological assistance. At this point in the recovery process, the patient does have cognitive capacity as the patient is unable to understand a situation and its likely consequences, and he is generally able to manipulate information rationally. Cognitive capacity will be assessed throughout the recovery process. Anticipated Problems: Ongoing areas of concern will include behavioral impulsivity, lack of insight and judgment, which is expected to improve with time and treatment. Treatment Plan: This clinician will continue to follow with you throughout the course of this patients critical care treatment, and I will be available to meet with the patients family/support system to facilitate their understanding and the ongoing care of their family member. The goals of neuropsychological intervention shall be both educational and supportive to the family/support system as is deemed clinically appropriate. [place] COG Scale: Level VII Disinhibition Score: 17.50 Aggression Score: 14.00 Lability Score: 14.00 Agitated Behavior Total Score: 16 Impression: 48 year old male s/p TBI 2T unknown causes on 08/11/2018. Progress Note Narrative: PTD 6. The patient is stable, but concern is TITA at this point in his stay. Trauma team started Valium taper with Keppra adjunct. No significant agitation/ restlessness with ABS of 16 (17.5,14,14). He is at least Ranch[place] , but more likely VII. He does have decision making capacity. I will follow. - Diagnosis (1) Mild neurocognitive disorder Status: Acute
[2018-08-17 09:21] LABS: Baso % (Auto) 1.3 % (0.0-2.0); Eos # (Auto) 0.1 th/mm3 (0.0-0.4); Hematocrit 31.3 % (39.0-51.0); Hemoglobin 10.7 gm/dL (13.0-17.0); Lymph # (Auto) 0.9 th/mm3 (1.0-4.8); Lymph % (Auto) 35.2 % (9.0-44.0); Mean Corpuscular HGB Conc 34.2 % (32.0-36.0); Mean Corpuscular Hemoglobin 33.9 pg (27.0-34.0); Mean Corpuscular Volume 99.1 fL (80.0-100.0); Mono # (Auto) 0.4 th/mm3 (0.0-0.9); Neut # (Auto) 1.2 th/mm3 (1.8-7.7); Neut % (Auto) 47.5 % (16.0-70.0); Platelet Count 107 th/mm3 (150-450); Red Blood Count 3.16 mil/mm3 (4.50-5.90); Red Cell Distribution Width 17.1 % (11.6-17.2); White Blood Count 2.6 th/mm3 (4.0-11.0)
[2018-08-17] MEDS: levETIRAcetam 250 MG Tablet PO SCH (09:34)
[2018-08-17] MEDS: Metoprolol Tartrate 25 MG Tablet PO SCH (09:34)
[2018-08-17] MEDS: Senna/Docusate Sodium 8.6/50 MG Tablet PO SCH (09:34)
--- NOTE | 2018-08-17 12:23 | P.PNCC ---
Subjective Brief History: [place]: This ia a 48 year-old male with intracranial bleed due to a fall when intoxicated. Patient transferred here for further care. Patient has been seen at [facility] numerous times for falls. Patient is awake and alert but disoriented and confused. GCS 12 Patient underwent additional studies, including CT head and c-spine. Neurosurgery consulted Admit to SICU Preliminary workup reveals Left frontal, temporal and parietal cerebral contusions and hemorrhages Left 4 mm subdural hematoma Some right cerebral small counter-coup contusions 24 Hour Review/Hospital Course: 08/12/2018 48-year-old male who was heavily intoxicated and fell. Sustained above-noted injuries to the brain Patient is now awake alert oriented stating that he blacked out and had a "" seizure" Neurologically patient is intact CN II to XII are normal Motoric strength bilateral equal Normal deep tendon reflexes No lateralization no drift No other injuries noted to chest abdomen or pelvis Plan Continue antiseizure medication and keep on Keppra Transfer to floor Banana bag PT OT Likely patient will be discharged in next 24-48 hours 08/13/2018 Patient is awake alert and oriented Tolerating p.o. diet Patient ambulating out of bed not very steady on his feet initially but then improved Patient does not require hospitalization anymore but he is homeless so there is no place to send him Awaiting floor bed since yesterday and from the air case management will have to make some arrangements to get patient to a homeless [place] health care facility 08/14/2018 Patient is awake alert oriented but occasionally confused Tolerating diet well Hemodynamically stable on antihypertensives Bilateral breath sounds Patient refuses to get out of bed and has to be prompted to comply with therapy He does not require hospitalization or ICU care at this time but patient has no place to go He will need to be placed in a [facility] bed or a [place] health care facility eventually 08/15/2018 Patient sitting up in bed. No distress noted. No acute events overnight No complaints offered. Will complete follow-up CT brain today 08/16 No acute events overnight, FU CT scan shows evolution of the injury line up worker working on placement Patient is cleared for floor 08/17 Patient is overall stable Neuro status is the same patient Patient will need a safe discharge plan social media sr strategy manager is planning Objective Vital Signs / I&O: Vital Signs 08/16/18 16:00 08/16/18 20:00 08/17/18 00:00 Temperature 97 F L 96.9 F L 97.6 F Pulse Rate 75 72 70 Respiratory Rate 16 17 14 Blood Pressure 98/66 L 136/79 97/62 L Pulse Oximetry 94 L 98 100 08/17/18 04:00 08/17/18 08:00 08/17/18 12:00 Temperature 98.1 F 97.8 F Pulse Rate 85 92 H Respiratory Rate 20 16 13 Blood Pressure 97/81 L 97/61 L Pulse Oximetry 98 Intake & Output 08/16/18 08/17/18 08/17/18 18:59 06:59 18:59 Intake Total 825 / 825 480 / 480 Output Total 850 / 850 1325 / 1325 Balance -25 / -25 -845 / -845 Weight 93.4 kg Intake: IV 105 / 105 Keppra Inj 500 MG In NS Inj 100 105 / 105 ML @ 400 mls/hr IV.SIG Q12H [facility]O Rx#:[id number] Oral 720 / 720 480 / 480 Output: Urine 850 / 850 1325 / 1325 Other: Date of Last Bowel Movement 08/14/19 08/14/19 # Bowel Movements 0 Result Diagrams: 08/17/18 09:00 08/17/18 02:55 Disinhibition Score: 17.50 Aggression Score: 14.00 Lability Score: 14.00 Agitated Behavior Total Score: 16 - Exam WOOD TURNER: g coma score is 15 Hemodynamic/Cardiac: hemoDynamically normal Pulmonary/Respiratory: bSounds clear bilateral patient is on room air Abdomen/GI Nutrition: Abdomen soft and benign Assessment and Plan - Assessment (1) Subdural hematoma, acute Code(s): S06.5X9A - Traumatic subdural hemorrhage with loss of consciousness of unspecified duration, initial encounter Status: Acute (2) Cerebral contusion Code(s): S06.339A - Contusion and laceration of cerebrum, unspecified, with loss of consciousness of unspecified duration, initial encounter Status: Acute (3) Major neurocognitive disorder as late effect of traumatic brain injury with behavioral disturbance Code(s): S06.9X9S - Unspecified intracranial injury with loss of consciousness of unspecified duration, sequela; F02.81 - Dementia in other diseases classified elsewhere with behavioral disturbance Status: Acute (4) Mild neurocognitive disorder Code(s): G31.84 - Mild cognitive impairment, so stated Status: Acute Plan: [place]: This is a 48-year-old male who sustained a mechanical fall. Positive EtOH. Trauma transfer from [facility]. INJURIES: LEFT frontal / temporal and parietal cerebral contusions/hemorrhages Bilateral SDH Counter coup contusions PMHx: Frequent falls. ETOH. HTN. HLD. Hypothyroid. Procedures: Consults: Neurosurgery. Rehab medicine. Neuropsych. Case management. Diet: Regular diet. Tolerating po diet. Encourage good po intake with each meal. Pulmonary: Encourage good pulmonary toileting. IS at bedside and pt encouraged to use. Rationale for use explained to patient, and verbalized understanding. PAIN Management: [place] 5-10 mg q4h. SEIZURES: Ativan 1 mg q 1h. Activity: OOB. PT and OT ordered. Patient needs much encouragement to participate in with PT. GI prophylaxis: Protonix 40 mg po Bowel regimen: Anum-colace. MOM. Lactulose PRN. Senna PRN. Bisacodyl PRN. LBM: 08/14 DVT prophylaxis: Mechanical VTE with SCDs. Chemical management contraindicated at this time due to SDH. DC Planning: Case management consulted for assistance with final discharge disposition. Patient is homeless, and he wants to return living "on the sidewalk." Emotional support provided to patient at bedside and plan of care discussed. Discussed with RN at bedside. Discussed pt condition and plan of care with collaborating trauma surgeon. Patient is hemodynamically stable in the ICU and therefore can be transferred and and managed on the med/surg floor. The trauma team will round each day, and evaluate plan of care on a daily basis. LEFT frontal / temporal and parietal cerebral contusions/hemorrhages Bilateral SDH Counter coup contusions Neurosurgery consulted and assisting in management and care Supportive care CT brain for any change in neurological status 08/15: f/u CT brain pending Pain management Encourage out of bed PT and OT ordered Bowel regimen Mechanical DVT prophylaxis Seizure precautions Seizure prophylaxis - Jack Neuropsych consulted and assisting in management care HTN HLD Vital signs every 4 hours Resume home medications Lopressor 25 mg BID. Catapress 0.1 mg q6h PRN. T Trandate 10mg q1h PRN. statin ETOH abuse Supportive care Monitor for DT's Seizure precautions Ativan PRN for seizures MVI x 3 days - complete Neuropsych consulted and assisting in management care Counseled regarding abstaining from alcohol. (2) Cerebral contusion Qualifiers: Encounter type: initial encounter Laterality: left Loss of consciousness presence/duration: with LOC of unspecified duration Qualified Code(s): S06.329A - Contusion and laceration of left cerebrum with loss of consciousness of unspecified duration, initial encounter
--- NOTE | 2018-08-17 13:42 | P.PNNS ---
Subjective Interval history: Pt awake and alert. Complains of intermittent headache. Complains of fullness in left ear. No n/v. Moderate expressive aphasia. <William Dalal - Last Filed: 08/17/18 13:39> Physical Exam Vital signs: Vital Signs 08/16/18 16:00 08/16/18 20:00 08/17/18 00:00 Temperature 97 F L 96.9 F L 97.6 F Pulse Rate 75 72 70 Respiratory Rate 16 17 14 Blood Pressure 98/66 L 136/79 97/62 L Pulse Oximetry 94 L 98 100 08/17/18 04:00 08/17/18 08:00 08/17/18 12:00 Temperature 98.1 F 97.8 F Pulse Rate 85 92 H Respiratory Rate 20 16 13 Blood Pressure 97/81 L 97/61 L Pulse Oximetry 98 Intake & Output 08/16/18 08/17/18 08/17/18 18:59 06:59 18:59 Intake Total 825 / 825 480 / 480 Output Total 850 / 850 1325 / 1325 Balance -25 / -25 -845 / -845 Weight 93.4 kg Intake: IV 105 / 105 Keppra Inj 500 MG In NS Inj 100 105 / 105 ML @ 400 mls/hr IV.SIG Q12H [facility]O Rx#:[id number] Oral 720 / 720 480 / 480 Output: Urine 850 / 850 1325 / 1325 Other: Date of Last Bowel Movement 08/14/19 08/14/19 # Bowel Movements 0 - Constitutional no acute distress - Routine HEENT Exam Eye: Present: PERRL. Absent: conjunctival icterus - Routine Respiratory Exam Present: CTA bilaterally. Absent: respiratory distress, rhonchi, wheezes - Routine Cardiovascular Exam Present: RRR, S1, S2. Absent: murmur - Routine Abdominal Exam Present: soft, normoactive bowel sounds. Absent: tenderness, distended, firm - Routine Skin Exam Absent: cyanosis, erythema - Routine Neurological Exam Present: alert, moving all extremities. Absent: motor deficit, altered mental status, normal speech (Expressive aphasia.) - Routine Psychiatric Exam Present: normal affect, cooperative. Absent: anxious, agitated <William Dalal - Last Filed: 08/17/18 13:39> Vital signs: Vital Signs 08/16/18 16:00 08/16/18 20:00 08/17/18 00:00 Temperature 97 F L 96.9 F L 97.6 F Pulse Rate 75 72 70 Respiratory Rate 16 17 14 Blood Pressure 98/66 L 136/79 97/62 L Pulse Oximetry 94 L 98 100 08/17/18 04:00 08/17/18 08:00 08/17/18 12:00 Temperature 98.1 F 97.8 F 97.6 F Pulse Rate 85 92 H 90 Respiratory Rate 20 16 18 Blood Pressure 97/81 L 97/61 L 110/78 Pulse Oximetry 98 Intake & Output 08/16/18 08/17/18 08/17/18 18:59 06:59 18:59 Intake Total 825 / 825 480 / 480 Output Total 850 / 850 1325 / 1325 Balance -25 / -25 -845 / -845 Weight 93.4 kg Intake: IV 105 / 105 Keppra Inj 500 MG In NS Inj 100 105 / 105 ML @ 400 mls/hr IV.SIG Q12H [facility]O Rx#:[id number] Oral 720 / 720 480 / 480 Output: Urine 850 / 850 1325 / 1325 Other: Date of Last Bowel Movement 08/14/19 08/14/19 # Bowel Movements 0 <Miguel Cantu - Last Filed: 08/17/18 15:04> Assessment and Plan - Assessment (1) Subdural hematoma, acute Code(s): S06.5X9A - Traumatic subdural hemorrhage with loss of consciousness of unspecified duration, initial encounter Status: Acute (2) Cerebral contusion Code(s): S06.339A - Contusion and laceration of cerebrum, unspecified, with loss of consciousness of unspecified duration, initial encounter Status: Acute Qualifiers: Encounter type: initial encounter Laterality: left Loss of consciousness presence/duration: with LOC of unspecified duration Qualified Code(s): S06.329A - Contusion and laceration of left cerebrum with loss of consciousness of unspecified duration, initial encounter (3) Major neurocognitive disorder as late effect of traumatic brain injury with behavioral disturbance Code(s): S06.9X9S - Unspecified intracranial injury with loss of consciousness of unspecified duration, sequela; F02.81 - Dementia in other diseases classified elsewhere with behavioral disturbance Status: Acute - Plan 48-year-old gentleman with a bilateral small subdural hemorrhages along with left frontal and temporal lobe contusions and associated aphasia. Transfer to floor. Keppra for seizure prophylaxis, SCDs for DVT prophylaxis Monitor closely for any alcohol withdrawal symptoms. D/C planning ?rehab options. <William Dalal - Last Filed: 08/17/18 13:39> - Assessment (1) Subdural hematoma, acute Code(s): S06.5X9A - Traumatic subdural hemorrhage with loss of consciousness of unspecified duration, initial encounter Status: Acute (2) Cerebral contusion Code(s): S06.339A - Contusion and laceration of cerebrum, unspecified, with loss of consciousness of unspecified duration, initial encounter Status: Acute Qualifiers: Encounter type: initial encounter Laterality: left Loss of consciousness presence/duration: with LOC of unspecified duration Qualified Code(s): S06.329A - Contusion and laceration of left cerebrum with loss of consciousness of unspecified duration, initial encounter - Attending Attestation The exam, history, and the medical decision-making described in the above note were completed with the assistance of the mid-level provider. I reviewed and agree with the findings presented. I attest that I had a [id number] encounter with the patient on the same day, and personally performed and documented my assessment and findings in the medical record. <Miguel Cantu - Last Filed: 08/17/18 15:04>
--- NOTE | 2018-08-17 16:59 | P.CONREH ---
History of Present Illness Service: Physical medicine and rehabilitation Consult date: 08/17/18 Reason for Consult: Comprehensive rehabilitation evaluation Primary Care Provider: Simone Sevilla History of Present Illness: Inder Welch is a 48-year-old [id number] male admitted [facility] 08/11/18 after a fall at home. Possible seizure was noted. [place] Coma Scale was 1112. Head CT showed: at least 3 areas of parenchymal hemorrhage in the inferior aspect of the left frontal lobe, left temporal lobe as well as the left parietal lobe as detailed above, small subdural hematoma over the left parietal convexity measuring 4 mm in depth, subdural blood tract along the left side of the tentorium, possible very small 5-6 mm subdural collection over the right high parietal convexity and no midline shift. Neurosurgery was consulted and nonsurgical treatment was recommended. Most recent head CT 08/15/18 showed: Increased edema surrounding the areas of intraparenchymal hemorrhage in the left temporal, frontal and parietal lobes, small high right subdural hematoma without significant change, large left subdural hematoma was smaller. Review of Systems Constitutional: Reports headache(s) Eyes: Reports blurry vision, Denies double vision Ears, Nose, Mouth, and Throat: Reports abnormal hearing Cardiovascular: Denies chest pain Respiratory: Denies shortness of breath Gastrointestinal: Denies abdominal pain, Denies constipation Genitourinary: Denies urinary incontinence Musculoskeletal: Reports body aches Skin/Breast: Denies rash Neurologic: Reports abnormal hearing, Denies tingling/numbness/burning sensations Psychiatric: Denies confusion Endocrine: Denies excessive sweating Hematologic/Lymphatic: Denies easy bruising PMFSH - History History Provided By: Patient - Medical / Surgical Hx Neg / Unobtainable Medical Problems Denied: Unable to Obtain - Medical History Medical History: Medical History (Last Reviewed 08/17/18 @ 16:53 by Martha Scales MD) Medical history unknown Surgical history unknown - Social History I have reviewed the patient's Social History: Yes - Tobacco History Second Hand Smoke Exposure: No Smoking Status: Never smoker - Alcohol History How Often Do You Have a Drink Containing Alcohol: 4 or more times a week - Substance Use History Substance History: No History of Abuse - Travel History Recent Travel in the [facility] Within the Last 8 Weeks: No Recent Travel Out of the Country Within the Last 8 Weeks: No - Immunization History Tetanus Immunization: <5 Years Hx Influenza Vaccine This Season: Yes Medications and Allergies Active Medications: Active Medications Hydrocodone Bitart/Acetaminophen ([place] 10/325) 1 tab PO Q4H PRN PRN Reason: PAIN SCALE 6 TO 10 Last Admin: 08/16/18 09:19 Dose: 1 tab Hydrocodone Bitart/Acetaminophen ([place] 5/325) 1 tab PO Q4H PRN PRN Reason: Acute Pain Last Admin: 08/17/18 09:33 Dose: 1 tab Al Hydrox/Mg Hydrox/Simethicone (Mag-Al Plus Susp Liq) 30 ml PO Q6H PRN PRN Reason: DYSPEPSIA Al Hydroxide/Mg Hydroxide (Milk Of Magnesia Liq) 30 ml PO Q12H [facility] Last Admin: 08/17/18 09:34 Dose: 30 ml Albuterol (Albuterol Neb (Prn)) 2.5 mg NEB Q4HR NEB PRN PRN Reason: WHEEZING Atorvastatin Calcium (Lipitor) 40 mg PO HS [facility] Last Admin: 08/16/18 20:22 Dose: 40 mg Bisacodyl (Dulcolax Supp) 10 mg RECTAL DAILY PRN PRN Reason: SEVERE CONSITIPATION Clonidine HCl (Catapres) 0.1 mg NG/OG Q6H PRN PRN Reason: SYS BP GREATER THAN 170 MMHG Diazepam (Valium) 10 mg PO Q12H [facility] Stop: 08/18/18 23:59 Diazepam (Valium) 10 mg PO ONCE [facility] Stop: 08/22/18 23:59 Diazepam (Valium) 10 mg PO TID [facility] Stop: 08/17/18 23:59 Last Admin: 08/17/18 12:20 Dose: 10 mg Calcium Gluconate 1 gm/ Sodium (Chloride) 110 mls @ 110 mls/hr IV.SIG UNSCH PRN PRN Reason: SEE LABEL COMMENTS Magnesium Sulfate 2 gm/ Sodium (Chloride) 100 mls @ 100 mls/hr IV.SIG UNSCH PRN PRN Reason: MAGNESIUM LESS THAN 2 Sodium Chloride (Ns Inj) 1,000 mls @ 0 mls/hr IV.SIG BOLUS [facility] Lactulose (Lactulose Liq) 30 ml PO DAILY PRN PRN Reason: SEVERE CONSITIPATION Levetiracetam (Keppra) 750 mg PO BID [facility] Last Admin: 08/17/18 09:34 Dose: 750 mg Levothyroxine Sodium (Synthroid) 25 mcg PO DAILY@0600 [facility] Last Admin: 08/17/18 05:41 Dose: 25 mcg Magnesium Oxide (Mag-Ox) 400 mg PO HS [facility] Last Admin: 08/16/18 20:23 Dose: 400 mg Metoprolol Tartrate (Lopressor) 25 mg PO BID [facility] Last Admin: 08/17/18 09:34 Dose: 25 mg Naloxone HCl (Narcan Inj) 0.4 mg IV.PUSH UNSCH PRN PRN Reason: SEE LABEL COMMENTS Ondansetron HCl (Zofran Inj) 4 mg IV.PUSH Q6H PRN PRN Reason: NAUSEA OR VOMITING Pantoprazole Sodium (Protonix) 40 mg PO DAILY [facility] Last Admin: 08/17/18 09:34 Dose: 40 mg Senna/Docusate Sodium (Anum-Colace) 1 tab PO BID [facility] Last Admin: 08/17/18 09:34 Dose: 1 tab Sennosides (Senokot) 17.2 mg PO Q12H PRN PRN Reason: Moderate Constipation Allergies Allergy/AdvReac Type Severity Reaction Status Date / Time codeine Allergy Mild Nausea/Vomi Verified 08/12/18 23:11 ting Home Medications Medication Instructions Recorded Confirmed Type aspirin 81 mg PO DAILY 08/11/18 History atorvastatin 40 mg PO HS 08/11/18 History furosemide 20 mg PO DAILY 08/11/18 History levothyroxine [Synthroid] 25 mcg PO DAILY 08/11/18 History magnesium oxide 400 mg PO HS 08/11/18 History metoprolol tartrate 25 mg PO BID 08/11/18 History potassium chloride 20 meq PO DAILY 08/11/18 History thiamine HCl (vitamin B1) 100 mg PO DAILY 08/11/18 History Exam - Physical Examination Vital Signs / I&O: Vital Signs 08/16/18 20:00 08/17/18 00:00 08/17/18 04:00 Temperature 96.9 F L 97.6 F 98.1 F Pulse Rate 72 70 85 Respiratory Rate 17 14 20 Blood Pressure 136/79 97/62 L 97/81 L Pulse Oximetry 98 100 98 08/17/18 08:00 08/17/18 12:00 Temperature 97.8 F 97.6 F Pulse Rate 92 H 90 Respiratory Rate 16 18 Blood Pressure 97/61 L 110/78 Pulse Oximetry Intake & Output 08/16/18 08/17/18 08/17/18 18:59 06:59 18:59 Intake Total 825 / 825 480 / 480 Output Total 850 / 850 1325 / 1325 Balance -25 / -25 -845 / -845 Weight 93.4 kg Intake: IV 105 / 105 Keppra Inj 500 MG In NS Inj 100 105 / 105 ML @ 400 mls/hr IV.SIG Q12H [facility] Rx#:[id number] Oral 720 / 720 480 / 480 Output: Urine 850 / 850 1325 / 1325 Other: Date of Last Bowel Movement 08/14/19 08/14/19 # Bowel Movements 0 Intake & Output 08/15/18 08/16/18 08/17/18 08/18/18 06:59 06:59 06:59 06:59 Intake Total 1255 / 1255 1530 / 1530 1305 / 1305 Output Total 800 / 800 1070 / 1070 2175 / 2175 Balance 455 / 455 460 / 460 -870 / -870 Weight 93.4 kg 95.1 kg 93.4 kg General: No acute distress, Other (Patient sitting up at the edge of bed not in any apparent distress) Respiratory: Lungs CTA, Non-labored respirations, BS equal Gastrointestinal: Positive bowel sounds, Non-distended, Non-tender Date of Last Bowel Movement: 08/14/19 Cardiovascular: Regular rhythm Skin: No rash Musculoskeletal: ROM (Grossly within normal limits) Psychiatric: Cooperative - Neurologic Orientation: oriented to: Self, Place, Time (With cues), Situation Neurologic: Cranial nerves (Intact 2 through 12 grossly), Speech (Intelligible but patient appears to have some word finding difficulties) Motor: Right Upper Extremity (5/5), Left Upper Extremity (5/5), Right Lower Extremity (5/5), Left Lower Extremity (5/5) Sensory: Intact to light touch in both upper and lower extremities Clonus: Negative Results - Labs CBC & Chem 7: 08/17/18 09:00 08/17/18 02:55 Labs: Laboratory Results - last 24 hr 08/17/18 08/17/18 02:55 09:00 WBC 2.6 L RBC 3.16 L Hgb 10.7 L Hct 31.3 L MCV 99.1 MCH 33.9 MCHC 34.2 RDW 17.1 Plt Count 107 L MPV 8.0 Neut % (Auto) 47.5 Lymph % (Auto) 35.2 [place] % (Auto) 14.0 H Eos % (Auto) 2.0 Baso % (Auto) 1.3 Neut # (Auto) 1.2 L Lymph # (Auto) 0.9 L [place] # (Auto) 0.4 Eos # (Auto) 0.1 Baso # (Auto) 0.0 WBC Differential . Differential Comment Auto diff final Sodium 134 L Potassium 4.8 Chloride 101 Carbon Dioxide 24.9 Anion Gap 8 BUN 11 Creatinine 0.85 Estimated GFR Greater than 89 Random Glucose 74 Calcium 8.9 Total Bilirubin 1.6 H AST 21 ALT 16 Alkaline Phosphatase 205 H Total Protein 7.3 Albumin 3.6 Assessment and Plan (1) Traumatic brain injury Status: Acute Code(s): S06.9X9A - Unspecified intracranial injury with loss of consciousness of unspecified duration, initial encounter - Plan Assessment: 1. Fall with traumatic brain injury including left frontotemporal parietal contusion and small subdural hematoma 2. Mild aphasia 3. Impaired mobility 4. History of EtOH abuse Recommendations: 1. Patient is progressing with mobility and is now standby assist to contact- guard for transfers and ambulating 30 feet x2 with a wheeled walker and contact- guard. Continue to mobilize as tolerated 2. Occupational Therapy evaluation for ADLs is pending 3. Speech therapy consulted to assist with communication/cognition 4. Case management is addressing ongoing discharge needs. 5. We will follow while hospitalized and at discharge is appropriate Thank you for this consult. (1) Traumatic brain injury Qualifiers: Encounter type: initial encounter Loss of consciousness presence/duration: with LOC > 24 hr with return to prior conscious level Qualified Code(s): S06.9X5A - Unspecified intracranial injury with loss of consciousness greater than 24 hours with return to pre-existing conscious level, initial encounter
--- NOTE | 2018-08-18 07:03 | P.DS ---
<Davidson Morel M - Last Filed: 08/18/18 07:04> Date of admission: 08/11/18 16:47 Primary care physician: Simone Sevilla Brief History from admission: S/P Fall DS: Diagnosis - Discharge Diagnosis (1) Subdural hematoma, acute Status: Acute (2) Cerebral contusion Status: Acute (3) Fall Status: Acute (4) Mild neurocognitive disorder Status: Acute DS: Summary Hospital Course: [place]ACK[place]: Mechanical fall. +ETOH. Trauma transfer from [facility]. INJURIES: LEFT frontal and temporal lobe contusions Bilateral SDH PMHx: Frequent falls. ETOH. HTN. HLD. Hypothyroid. LEFT frontal and temporal lobe contusions, Bilateral SDH Neurosurgery consulted, F/U outpatient Continue Keppra x [address] Brain shows evolution of injury Stable neuro checks Pain control OOB- PT recommended DME, no home PT needs Avoid second head injury Post-concussive education F/U with ENT as outpatient for hearing impairment Neuropsychologist consulted, F/U outpatient ETOH abuse Abstain from ETOH Refer to Simone Kirkland MVI x 3 complete F/U With PCP in 1 week Plan of care discussed with patient, EDUCATION RN and CM. Collaborating Trauma MD agrees with plan. Case management consulted to assist with DC planning. Made arrangements for short term stay in a local hotel. Patient is clear from trauma surgery standpoint to safely discharge home. - Time Spent with Patient Total time spent providing and/or coordinating discharge services: Greater than 30 minutes - Quality: VTE Deep Vein Thrombosis/Pulmonary Embolism Present on Admission: No Exam Vital signs: Vital Signs 08/17/18 08:00 08/17/18 12:00 Temperature 97.8 F 97.6 F Pulse Rate 92 H 90 Respiratory Rate 16 18 Blood Pressure 97/61 L 110/78 Intake & Output 08/17/18 08/17/18 08/18/18 06:59 18:59 06:59 Intake Total 480 / 480 Output Total 1325 / 1325 Balance -845 / -845 Weight 93.4 kg Intake: Oral 480 / 480 Output: Urine 1325 / 1325 Other: Date of Last Bowel Movement 08/14/19 08/14/19 Narrative: GENERAL: 48 year old well-developed male OOB ambulating halls with PT. SKIN: Warm and dry. HEAD:Normocephalic. ENT: No nasal bleeding or discharge. Mucous membranes pink and moist. No ear discharge noted. RESPIRATORY: No accessory muscle use. Clear and diminished to auscultation bilaterally. GASTROINTESTINAL: Abdomen soft, non-tender, nondistended. + BS MUSCULOSKELETAL: Extremities without cyanosis, or edema. MAEW, + perfused NEUROLOGICAL: Awake and alert. Mild expressive aphasia. Results Procedures completed during hospitalization: . Labs on day of discharge: Labs from last 24 hours 08/17/18 09:00 WBC 2.6 L RBC 3.16 L Hgb 10.7 L Hct 31.3 L MCV 99.1 MCH 33.9 MCHC 34.2 RDW 17.1 Plt Count 107 L MPV 8.0 Neut % (Auto) 47.5 Lymph % (Auto) 35.2 [place] % (Auto) 14.0 H Eos % (Auto) 2.0 Baso % (Auto) 1.3 Neut # (Auto) 1.2 L Lymph # (Auto) 0.9 L [place] # (Auto) 0.4 Eos # (Auto) 0.1 Baso # (Auto) 0.0 WBC Differential . Differential Comment Auto diff final - Impressions ITS Impressions Cervical Spine CT 08/11/18 15:56 CONCLUSION: 1. Moderate degenerative disc disease and facet arthropathy. Mild cervical kyphosis and scoliosis. No acute fracture. Chest X-Ray 08/11/18 15:56 CONCLUSION: 1. Bihilar densities, likely representing some chronic atelectasis or scarring on the left and possibly a prominence of the central pulmonary artery on the right. Findings are similar to the prior. 2. Compensated cardiomegaly. No effusions. Head CT 08/15/18 10:12 CONCLUSION: 1. Increased edema surrounding the areas of intraparenchymal hemorrhage in the left temporal, frontal and parietal lobes. 2. Small high right subdural hematoma without significant change. 3. The larger left subdural hematoma appears smaller in size than on the prior study. 4. No new hemorrhage or mass effect. 5. The left mastoid air cells are now opacified. . <Jaida Shah - Last Filed: 08/18/18 16:14> Date of admission: 08/11/18 16:47 Primary care physician: Simone Sevilla DS: Diagnosis - Discharge Diagnosis (1) Subdural hematoma, acute Status: Acute (2) Cerebral contusion Status: Acute (3) Major neurocognitive disorder as late effect of traumatic brain injury with behavioral disturbance Status: Acute (4) Mild neurocognitive disorder Status: Acute DS: Summary - Time Spent with Patient Total time spent providing and/or coordinating discharge services: Exam Vital signs: Intake & Output 08/17/18 08/18/18 08/18/18 18:59 06:59 18:59 Other: Date of Last Bowel Movement 08/14/19 Results - Impressions ITS Impressions Cervical Spine CT 08/11/18 15:56 CONCLUSION: 1. Moderate degenerative disc disease and facet arthropathy. Mild cervical kyphosis and scoliosis. No acute fracture. Chest X-Ray 08/11/18 15:56 CONCLUSION: 1. Bihilar densities, likely representing some chronic atelectasis or scarring on the left and possibly a prominence of the central pulmonary artery on the right. Findings are similar to the prior. 2. Compensated cardiomegaly. No effusions. Head CT 08/15/18 10:12 CONCLUSION: 1. Increased edema surrounding the areas of intraparenchymal hemorrhage in the left temporal, frontal and parietal lobes. 2. Small high right subdural hematoma without significant change. 3. The larger left subdural hematoma appears smaller in size than on the prior study. 4. No new hemorrhage or mass effect. 5. The left mastoid air cells are now opacified. . Addendum GCS 15 overall stable will discharge Discharge Plan - Discharge Order Discharge Orders: Discharge Order (Routine); Ordered 08/17/18 Ordered By: Davidson Morel - Physicians Team Primary Care Provider: Simone Sevilla, Attending Provider: Lupe Isabel Other Providers: Miguel Cantu MD ; Kervin Levin MD ; Kings Short MD ; Systems,[employer] ; Dio Melvin MD ; Josefa Parra ARNP ; Pete Tiwari MD ; Jaida Shah MD ; Davidson Morel ARNP ; Lupe Isabel MD ; Levon Peoples, PhD ; Benji Martínez MD
== END 2018-08-17 16:02 | disposition home or self-care (01) ==
LOC: NEPE 15:48 → NEDA 16:47 → N03 17:50
PROVIDERS: ADMIT Surgery; ATTEND Surgery

== ENCOUNTER 2018-08-29 22:30 | Inpatient (IN) ==
[2018-08-30] MEDS ORDERED: Bisacodyl 10 MG Supp RECTAL PRN (00:17)
[2018-08-30] MEDS ORDERED: Haloperidol Inj 5 MG/ML Ampul IV.PUSH PRN (00:25)
[2018-08-30] MEDS ORDERED: LORazepam 1 MG Tablet PO PRN (00:25)
--- NOTE | 2018-08-30 00:38 | P.HPCC ---
History of Present Illness Primary Care Physician: Renetta Salazar History of Present Illness: 48-year-old unfortunate homeless gentleman who presented at the emergency department at [facility] with a complaints of weakness. The onset was 1 week ago. The course of duration of symptoms was fluctuating in intensity. In addition he reports a headache gradual onset times 1 week with intermittent vertigo. Patient reports that on 08/11/2018 he had a seizure and fell and hit his head. He was seen at the dental and and transferred to [place] for subdural hematoma. The patient denies chest pain, shortness of breath, fevers, chills dysuria, visual changes, extremity weakness numbness, or gait instability. The CT of the head obtained in the emergency department at [facility] demonstrates multifocal small areas of subdural hemorrhage involving bilateral convexities variant in age from acute to chronic as described. Some of these areas appear to be a subacute in nature. There also involving areas of hemorrhagic contusion involving the left orbital frontal brain and the lateral left temporal lobe. After discussion with Dr. John the patient has been transferred to [facility] for higher level of care. Inpatient Certification: I certify that the inpatient services were ordered in accordance with Medicare regulations governing the order. This includes certification that hospital inpatient services are reasonable and necessary and in the case of services not specified as inpatient-only under 42 CFR 419.22(n), that they are appropriately provided as inpatient services in accordance to with the 2-midnight benchmark under 43 CFR 412.3(e) Estimated Total Length of Stay (Days): 5 Plans for Post Hospital Care: Not yet determined Review of Systems All other systems reviewed negative except as stated in HPI [facility] - History History Provided By: Patient - Medical History Medical History: Medical History (Last Reviewed 08/17/18 @ 16:53 by Martha Scales MD) Medical history unknown Surgical history unknown - Tobacco History Second Hand Smoke Exposure: No Smoking Status: Never smoker - Alcohol History How Often Do You Have a Drink Containing Alcohol: 4 or more times a week - Substance Use History Substance History: No History of Abuse - Substance Use Type Alcohol Status: Early Remission Route Used: By Mouth Frequency: not since last admission Medications and Allergies Active Medications: Active Medications Acetaminophen (Tylenol) 650 mg PO Q6H PRN PRN Reason: PAIN 1-10 AND/OR FEVER >101F Al Hydroxide/Mg Hydroxide (Milk Of Magnesia Liq) 30 ml PO Q12H PRN PRN Reason: Mild Constipation Albuterol (Duoneb Neb (Prn)) 1 ampul NEB Q2HR NEB PRN PRN Reason: WHEEZING Bisacodyl (Dulcolax Supp) 10 mg RECTAL DAILY PRN PRN Reason: SEVERE CONSITIPATION Chlorhexidine Gluconate (Chlorhexidine 2% Cloth) 3 pack TOPICAL DAILY@0400 [facility] Stop: 09/04/18 03:59 Chlorhexidine Gluconate (Chlorhexidine 2% Cloth) 3 pack TOPICAL DAILY@0400 PRN PRN Reason: Extra cloth needed Stop: 09/04/18 03:59 Famotidine (Pepcid Pf Inj) 20 mg IV.PUSH Q12HR [facility] Flumazenil (Romazecon Inj) 0.2 mg IV.PUSH Q1M PRN PRN Reason: OVERSEDATION Haloperidol Lactate (Haldol Inj) 1 mg IV.PUSH Q15M PRN PRN Reason: for severe agitation Sodium Chloride (Ns Inj) 1,000 mls @ 84 mls/hr IV.CONT .[id number] [facility] Multivitamins 10 ml/ Thiamine HCl 100 mg/ Folic Acid 1 mg/Sodium Chloride 511.2 mls @ 127.8 mls/hr IV.SIG DAILY [facility] Levetiracetam 500 mg/ Sodium (Chloride) 105 mls @ 400 mls/hr IV.SIG Q12H [facility] Lactulose (Lactulose Liq) 30 ml PO DAILY PRN PRN Reason: SEVERE CONSITIPATION Lorazepam (Ativan) 1 mg PO Q4H PRN PRN Reason: for CIWA 8-10 Lorazepam (Ativan Inj) 2 mg IV.PUSH Q2H PRN PRN Reason: for CIWA 11-14 Lorazepam (Ativan Inj) 2 mg IV.PUSH Q1H PRN PRN Reason: for CIWA 15-20 Lorazepam (Ativan Inj) 2 mg IV.PUSH Q15M PRN PRN Reason: for CIWA > 20 Lorazepam (Ativan Inj) 1 mg IV.PUSH Q4H PRN PRN Reason: for CIWA 8-10 Lorazepam (Ativan) 2 mg PO Q2H PRN PRN Reason: for CIWA 11-14 Morphine Sulfate (Morphine Inj) 2 mg IV.PUSH Q2H PRN PRN Reason: PAIN SCALE 6 TO 10 Ondansetron HCl (Zofran Inj) 4 mg IV.PUSH Q6H PRN PRN Reason: NAUSEA OR VOMITING Senna/Docusate Sodium (Anum-Colace) 1 tab PO BID [facility] Sennosides (Senokot) 17.2 mg PO Q12H PRN PRN Reason: Moderate Constipation Sodium Chloride (Ns Flush) 2 ml IV.FLUSH BID [facility] Sodium Chloride (Ns Flush) 2 ml IV.FLUSH PRN PRN PRN Reason: FLUSH AFTER USING IV ACCESS Allergies Allergy/AdvReac Type Severity Reaction Status Date / Time codeine Allergy Mild Nausea/Vomi Verified 08/12/18 23:11 ting Home Medications Medication Instructions Recorded Confirmed Type atorvastatin 40 mg PO HS 08/11/18 History furosemide 20 mg PO DAILY 08/11/18 History levothyroxine [Synthroid] 25 mcg PO DAILY 08/11/18 History magnesium oxide 400 mg PO HS 08/11/18 History metoprolol tartrate 25 mg PO BID 08/11/18 History potassium chloride 20 meq PO DAILY 08/11/18 History thiamine HCl (vitamin B1) 100 mg PO DAILY 08/11/18 History Exam - Constitutional mild distress - Routine HEENT Exam Head: Present: normocephalic, atraumatic Eye: Present: PERRL ENT: Present: mucous membranes moist - Routine Neck Exam Present: supple, full ROM. Absent: JVD, carotid bruit - Routine Respiratory Exam Absent: accessory muscle use, rhonchi, stridor, wheezes - Routine Cardiovascular Exam Present: RRR, S1, S2 - Routine Abdominal Exam Present: soft, normoactive bowel sounds. Absent: tenderness, distended - Routine Extremities Exam Absent: cyanosis, clubbing, edema - Routine Skin Exam Present: intact. Absent: cyanosis, erythema - Routine Neurological Exam Present: alert, oriented X3, moving all extremities Septic Shock Reassessment Septic shock perfusion: reassessment completed Caprini VTE Risk Assessment Caprini VTE Risk Assessment: Moderate/High Risk (score >= 2) Caprini Risk Assessment Model: Point Value = 1 Point Value = 2 Point Value = 3 Point Value = 5 Age 41-60 Minor surgery BMI > 25 kg/m2 Swollen legs Varicose veins or History of unexplained or recurrent spontaneous Oral contraceptives or hormone replacement Sepsis (< 1 month) Serious lung disease, including pneumonia (< 1 month) Abnormal pulmonary function Acute myocardial infarction Congestive heart failure (< 1 month) History of inflammatory bowel disease Medical patient at bed rest Age 61-74 Arthroscopic surgery Major open surgery (> 45 min) Laparoscopic surgery (> 45 min) Malignancy Confined to bed (> 72 hours) Immobilizing plaster cast Central venous access Age >= 75 History of VTE Family history of VTE Factor V Leiden Prothrombin [id number] Lupus anticoagulant Anticardiolipin antibodies Elevated serum homocysteine Heparin-induced thrombocytopenia Other congenital or acquired thrombophilia Stroke (< 1 month) Elective arthroplasty Hip, pelvis, or leg fracture Acute spinal cord injury (< 1 month) Prophylaxis Regimen: Total Risk Factor Score Risk Level Prophylaxis Regimen 0-1 Low Early ambulation 2 Moderate Order ONE of the following: *Sequential Compression Device (SCD) *Heparin 5000 units SQ BID 3-4 Higher Order ONE of the following medications: *Heparin 5000 units SQ TID *Enoxaparin/Lovenox 40 mg SQ daily (WT < 150 kg, CrCl > 30 mL/min) *Enoxaparin/Lovenox 30 mg SQ daily (WT < 150 kg, CrCl > 10-29 mL/min) *Enoxaparin/Lovenox 30 mg SQ BID (WT < 150 kg, CrCl > 30 mL/min) AND/OR *Sequential Compression Device (SCD) 5 or more Highest Order ONE of the following medications: *Heparin 5000 units SQ TID (Preferred with Epidurals) *Enoxaparin/Lovenox 40 mg SQ daily (WT < 150 kg, CrCl > 30 mL/min) *Enoxaparin/Lovenox 30 mg SQ daily (WT < 150 kg, CrCl > 10-29 mL/min) *Enoxaparin/Lovenox 30 mg SQ BID (WT < 150 kg, CrCl > 30 mL/min) AND *Sequential Compression Device (SCD) Assessment and Plan - Assessment and Plan Plan: Subdural hematoma -Chronic -Coags profile pending -Neurosurgical consultation -Blood pressure control -PT and OT as tolerated -Neuro checks per unit protocol Hypertension -Metoprolol -PRN meds if indicated to keep his BP less than 140 Hypothyroidism -Levothyroxine Alcohol use disorder -CIWA protocol -Thiamine folate multivitamins -Monitor for withdrawal DVT GI prophylaxis -Teds SCDs -Dermatological DVT prophylaxis when okay with neurosurgery -Pepcid 35 minutes of critical care
[2018-08-30] MEDS ORDERED: Multivitamin Inj 10 ML, Thiamine Inj 100 MG, Folic Acid Inj 1 MG in Sodium Chlor 0.9% I... IV.SIG SCH (01:00)
[2018-08-30] MEDS: Sod Chloride 0.9% Inj 1,000 ML IV.CONT SCH ×2 (01:21→18:01)
--- NOTE | 2018-08-30 01:57 | CT ---
EXAM DATE: 08/30/2018 12:54 AM EST AGE/SEX: 48 years / Male INDICATIONS: Follow up head injury and intracranial hemorrhage.. CLINICAL DATA: This is the patient's subsequent encounter. Patient reports that signs and symptoms h ave been present for 2 weeks and indicates a pain score of 0/10. MEDICAL/SURGICAL HISTORY: None. None. RADIATION DOSE: 56.35 CTDI (mGy) COMPARISON: [facility], CT HEAD W/O CONTRAST, 08/15/2018. . TECHNIQUE: CT of the head without contrast. Using automated exposure control and adjustment of the mA and/or kV according to patient size, radiation dose was kept as low as reasonably achievable to ob tain optimal diagnostic quality images. DICOM format image data is available electronically for revi ew and comparison. FINDINGS: The previously noted isodense subdural hemorrhage along the left parietal and occipital lobe is now l ow density but not significant changed in size. There is no significant mass effect. The previously n oted high right parietal subdural hemorrhage is no longer visualized. The previously noted high densi ty focal areas of hemorrhage in the left frontal, parietal and temporal lobes no longer present. Ther e is residual edema noted left frontal lobe and parietal lobes. There is no new hemorrhage or mass effect. The ventricular system remains within normal limits. The p osterior fossa and brainstem remain unremarkable. CONCLUSION: 1. The previously noted isodense subdural hemorrhage along the left parietal occipital lobes is now low density but otherwise not significant changed in size. There is no significant mass effect. 2. The smaller hiatal right parietal subdural hemorrhage is no longer visualized. 3. The high density hemorrhage is the previously noted in the left frontal, temporal and parietal lo bes have resolved with mild residual edema. 4. No new hemorrhage or mass effect. . Electronically signed by: Inder Begum MD 08/30/2018 1:56 AM EST
[2018-08-30] MEDS: Chlorhexidine Gluconate 2% 1 Pack (2 Cloths) TOPICAL SCH (03:49)
[2018-08-30] MEDS ORDERED: Chlorhexidine Gluconate 2% 1 Pack (2 Cloths) TOPICAL PRN (04:00)
[2018-08-30 04:34] LABS: Baso % (Auto) 1.1 % (0.0-2.0); Eos # (Auto) 0.1 th/mm3 (0.0-0.4); Eos % (Auto) 3.1 % (0.0-4.0); Hematocrit 31.8 % (39.0-51.0); Hemoglobin 10.6 gm/dL (13.0-17.0); Lymph # (Auto) 1.1 th/mm3 (1.0-4.8); Mean Corpuscular HGB Conc 33.5 % (32.0-36.0); Mean Corpuscular Volume 98.5 fL (80.0-100.0); Mean Platelet Volume 7.6 fL (7.0-11.0); Mono # (Auto) 0.3 th/mm3 (0.0-0.9); Mono % (Auto) 11.3 % (0.0-8.0); Neut # (Auto) 1.2 th/mm3 (1.8-7.7); Neut % (Auto) 44.5 % (16.0-70.0); Platelet Count 126 th/mm3 (150-450); Red Blood Count 3.22 mil/mm3 (4.50-5.90); Red Cell Distribution Width 16.8 % (11.6-17.2); White Blood Count 2.6 th/mm3 (4.0-11.0)
[2018-08-30 04:53] LABS: Activated Partial Thrombo Time 30.7 sec (23.4-31.7); INR 1.5 Ratio; Prothrombin Time 15.3 sec (9.8-11.6)
[2018-08-30 04:54] LABS: Alanine Aminotransferase 75 U/L (12-78); Albumin 3.4 g/dL (3.4-5.0); Anion Gap 9 meq/L (5-15); Aspartate Aminotransferase 72 U/L (15-37); Blood Urea Nitrogen 11 mg/dL (7-18); Calcium 8.5 mg/dL (8.5-10.1); Carbon Dioxide 25.3 meq/L (21.0-32.0); Chloride 106 meq/L (98-107); Glomerular Filtration Rate Greater Than 89 mL/min (>89); Glucose,Random 111 mg/dL (74-106); Magnesium 1.5 mg/dL (1.5-2.5); Phosphorus 3.4 mg/dL (2.5-4.9); Potassium 3.4 meq/L (3.5-5.1); Sodium 140 meq/L (136-145)
[2018-08-30 04:57] LABS: Alkaline Phosphatase 193 U/L (45-117); Total Protein 7.1 g/dL (6.4-8.2)
[2018-08-30] MEDS: Furosemide 20 MG Tablet PO SCH (08:31)
[2018-08-30] MEDS: Metoprolol Tartrate 25 MG Tablet PO SCH ×2 (08:32→20:08)
[2018-08-30] MEDS: Morphine Sulfate Inj 2 MG/ML Vial IV.PUSH PRN ×2 (08:34→19:55)
[2018-08-30] MEDS ORDERED: Senna/Docusate Sodium 8.6/50 MG Tablet PO SCH (09:00)
[2018-08-30] MEDS ORDERED: Famotidine PF Inj 20 MG/2 ML Vial IV.PUSH SCH (09:00)
[2018-08-30] MEDS: Senna/Docusate Sodium 8.6/50 MG Tablet PO SCH ×2 (09:02→20:01)
--- NOTE | 2018-08-30 16:25 | P.CONNS ---
History of Present Illness Service: Neurosurgery Consult date: 08/30/18 Requesting Physician: Jignesh Cruz Reason for Consult: subdural hematoma Primary Care Provider: Renetta Salazar History of Present Illness: this is a 48-year-old man, known to dr Cantu who presented at the emergency department at [facility] with a generalized weakness. The onset was 1 week ago. The course of duration of symptoms was fluctuating in intensity. In addition he reports a headache gradual onset times 1 week with intermittent vertigo. Patient reports that on 08/11/2018 he had a seizure and fell and hit his head. He was transferred to [place] for subdural hematoma under Dr Leonor Cantu care. The patient denies chest pain, shortness of breath, fevers, chills dysuria, visual changes, extremity weakness numbness, or gait instability. The CT of the head obtained in the emergency department at [facility] reported multifocal small areas of subdural hemorrhage involving bilateral convexities variant in age from acute to chronic as described. Some of these areas appear to be a subacute in nature. There also involving areas of hemorrhagic contusion involving the left orbital frontal brain and the lateral left temporal lobe. The emergency room doctor at [facility] requested an urgent transfer to [facility] for higher level of care. his rfamily history was reviewed and noncontributory to this admission Review of Systems All other systems reviewed negative except as stated in HPI [facility] - History History Provided By: Patient - Medical History Medical History: Medical History (Last Reviewed 08/30/18 @ 16:22 by Juwan John MD) Medical history unknown Surgical history unknown - Tobacco History Second Hand Smoke Exposure: No Smoking Status: Never smoker - Alcohol History How Often Do You Have a Drink Containing Alcohol: 4 or more times a week - Substance Use History Substance History: No History of Abuse - Substance Use Type Alcohol Status: Early Remission Route Used: By Mouth Frequency: not since last admission - Immunization History Tetanus Immunization: Unsure Hx Influenza Vaccine This Season: Yes Medications and Allergies Active Medications: Active Medications Acetaminophen (Tylenol) 650 mg PO Q6H PRN PRN Reason: PAIN 1-10 AND/OR FEVER >101F Al Hydroxide/Mg Hydroxide (Milk Of Magnesia Liq) 30 ml PO Q12H PRN PRN Reason: Mild Constipation Albuterol (Duoneb Neb (Prn)) 1 ampul NEB Q2HR NEB PRN PRN Reason: WHEEZING Atorvastatin Calcium (Lipitor) 40 mg PO HS [facility] Bisacodyl (Dulcolax Supp) 10 mg RECTAL DAILY PRN PRN Reason: SEVERE CONSITIPATION Chlorhexidine Gluconate (Chlorhexidine 2% Cloth) 3 pack TOPICAL DAILY@0400 [facility] Stop: 09/04/18 03:59 Last Admin: 08/30/18 03:49 Dose: 3 pack Chlorhexidine Gluconate (Chlorhexidine 2% Cloth) 3 pack TOPICAL DAILY@0400 PRN PRN Reason: Extra cloth needed Stop: 09/04/18 03:59 Famotidine (Pepcid Pf Inj) 20 mg IV.PUSH Q12HR [facility] Last Admin: 08/30/18 08:32 Dose: 20 mg Flumazenil (Romazecon Inj) 0.2 mg IV.PUSH Q1M PRN PRN Reason: OVERSEDATION Furosemide (Lasix) 20 mg PO DAILY [facility] Last Admin: 08/30/18 08:31 Dose: 20 mg Haloperidol Lactate (Haldol Inj) 1 mg IV.PUSH Q15M PRN PRN Reason: for severe agitation Sodium Chloride (Ns Inj) 1,000 mls @ 84 mls/hr IV.CONT .[id number] [facility] Last Admin: 08/30/18 01:21 Dose: 84 mls/hr Levetiracetam 500 mg/ Sodium (Chloride) 105 mls @ 400 mls/hr IV.SIG Q12H [facility] Last Admin: 08/30/18 12:00 Dose: 400 mls/hr Multivitamins 10 ml/ Thiamine HCl 100 mg/ Folic Acid 1 mg/Sodium Chloride 511.2 mls @ 127.8 mls/hr IV.SIG DAILY [facility] Lactulose (Lactulose Liq) 30 ml PO DAILY PRN PRN Reason: SEVERE CONSITIPATION Levothyroxine Sodium (Synthroid) 25 mcg PO DAILY@0600 [facility] Last Admin: 08/30/18 06:29 Dose: 25 mcg Lorazepam (Ativan) 1 mg PO Q4H PRN PRN Reason: for CIWA 8-10 Lorazepam (Ativan Inj) 2 mg IV.PUSH Q2H PRN PRN Reason: for CIWA 11-14 Lorazepam (Ativan Inj) 2 mg IV.PUSH Q1H PRN PRN Reason: for CIWA 15-20 Lorazepam (Ativan Inj) 2 mg IV.PUSH Q15M PRN PRN Reason: for CIWA > 20 Lorazepam (Ativan Inj) 1 mg IV.PUSH Q4H PRN PRN Reason: for CIWA 8-10 Lorazepam (Ativan) 2 mg PO Q2H PRN PRN Reason: for CIWA 11-14 Metoprolol Tartrate (Lopressor) 25 mg PO BID [facility] Last Admin: 08/30/18 08:32 Dose: 25 mg Morphine Sulfate (Morphine Inj) 2 mg IV.PUSH Q2H PRN PRN Reason: PAIN SCALE 6 TO 10 Last Admin: 08/30/18 08:34 Dose: 2 mg Ondansetron HCl (Zofran Inj) 4 mg IV.PUSH Q6H PRN PRN Reason: NAUSEA OR VOMITING Potassium Chloride (K-Dur) 20 meq PO DAILY [facility] Last Admin: 08/30/18 08:31 Dose: 20 meq Senna/Docusate Sodium (Anum-Colace) 1 tab PO BID [facility] Last Admin: 08/30/18 09:02 Dose: Not Given Sennosides (Senokot) 17.2 mg PO Q12H PRN PRN Reason: Moderate Constipation Sodium Chloride (Ns Flush) 2 ml IV.FLUSH BID [facility] Last Admin: 08/30/18 08:32 Dose: 2 ml Sodium Chloride (Ns Flush) 2 ml IV.FLUSH PRN PRN PRN Reason: FLUSH AFTER USING IV ACCESS Thiamine HCl (Vitamin B1) 100 mg PO DAILY [facility] Last Admin: 08/30/18 08:32 Dose: 100 mg Allergies Allergy/AdvReac Type Severity Reaction Status Date / Time codeine Allergy Mild Nausea/Vomi Verified 08/12/18 23:11 ting Home Medications Medication Instructions Recorded Confirmed Type atorvastatin 40 mg PO HS 08/11/18 History furosemide 20 mg PO DAILY 08/11/18 History levothyroxine [Synthroid] 25 mcg PO DAILY 08/11/18 History magnesium oxide 400 mg PO HS 08/11/18 History metoprolol tartrate 25 mg PO BID 08/11/18 History potassium chloride 20 meq PO DAILY 08/11/18 History thiamine HCl (vitamin B1) 100 mg PO DAILY 08/11/18 History Exam Vital signs: Vital Signs 08/30/18 00:37 08/30/18 01:00 08/30/18 01:14 Temperature 97.5 F L Pulse Rate 79 95 H 100 H Respiratory Rate 16 22 23 Blood Pressure 116/81 Pulse Oximetry 100 100 88 L 08/30/18 02:00 08/30/18 03:00 08/30/18 03:12 Temperature Pulse Rate 98 H 103 H 106 H Respiratory Rate 14 17 20 Blood Pressure 120/87 Pulse Oximetry 100 93 L 95 08/30/18 03:14 08/30/18 04:00 08/30/18 04:14 Temperature 97.8 F Pulse Rate 106 H 98 H 103 H Respiratory Rate 27 H 20 25 H Blood Pressure 99/75 L 107/74 Pulse Oximetry 95 98 93 L 08/30/18 05:00 08/30/18 05:14 08/30/18 07:00 Temperature Pulse Rate 105 H 100 H 92 H Respiratory Rate 23 17 13 Blood Pressure 106/77 Pulse Oximetry 89 L 96 93 L 08/30/18 07:14 08/30/18 08:00 08/30/18 08:14 Temperature 97.1 F L Pulse Rate 95 H 89 90 Respiratory Rate 13 13 18 Blood Pressure 105/68 105/68 132/80 Pulse Oximetry 90 L 99 96 08/30/18 09:00 08/30/18 09:14 08/30/18 09:40 Temperature Pulse Rate 96 H 99 H Respiratory Rate 31 H 26 H 19 Blood Pressure 112/79 Pulse Oximetry 98 95 08/30/18 10:00 08/30/18 10:17 08/30/18 11:00 Temperature Pulse Rate 103 H 92 H 101 H Respiratory Rate 19 39 H 18 Blood Pressure 112/79 110/82 109/83 Pulse Oximetry 97 97 95 08/30/18 11:14 08/30/18 12:00 08/30/18 12:14 Temperature 97.9 F Pulse Rate 85 78 81 Respiratory Rate 18 15 14 Blood Pressure 109/83 105/80 105/80 Pulse Oximetry 96 98 98 08/30/18 15:14 Temperature 97.6 F Pulse Rate 81 Respiratory Rate 15 Blood Pressure 115/77 Pulse Oximetry 99 Intake & Output 08/29/18 08/30/18 08/30/18 18:59 06:59 18:59 Intake Total 1065 / 1065 511.2 / 511.2 Balance 1065 / 1065 511.2 / 511.2 Weight 87.4 kg Intake: IV 105 / 105 511.2 / 511.2 MVI-12 Inj 10 ML Thiamine Inj 511.2 / 511.2 100 MG Folvite Inj 1 MG In NS Inj 500 ML @ 127.8 mls/hr IV. SIG DAILY [facility] Rx#:[id number] Keppra Inj 500 MG In NS Inj 100 105 / 105 ML @ 400 mls/hr IV.SIG Q12H [facility] Rx#:[id number] Oral 960 / 960 Other: # Voids 1 Weight On Admission 87.4 kg Narrative: The patient is alert, awake. Comfortable, in no acute distress. Speech is fluent. Cranial nerve examination: pupils to be equal, round and reactive to light. Extra-ocular movements are intact. Facial motor and sensory function are normal and symmetrical. Gross hearing appears decreased Sternocleidomastoid and trapezius muscles are symmetrical. Other cranial nerves are intact. Neck is soft and supple with a good range of motion without pain. Muscle strength is normal in all muscle groups of both upper and lower extremities. Sensory examination is intact to light touch and pin prick in both the upper and lower extremities. Deep tendon reflexes are symmetrical in both upper and lower extremities. There is a bilateral plantar flexion response. Cerebellar examination is unremarkable, without deficits. Lungs are clear Heart regular rhythm is regular rate Skin warm and dry Results - Laboratory Findings CBC and BMP: 08/30/18 03:49 08/30/18 03:49 Abnormal lab findings: Abnormal Labs 08/30/18 08/30/18 08/30/18 03:49 03:49 03:49 WBC 2.6 L RBC 3.22 L Hgb 10.6 L Hct 31.8 L Plt Count 126 L [place] % (Auto) 11.3 H Neut # (Auto) 1.2 L PT 15.3 H Potassium 3.4 L Random Glucose 111 H Total Bilirubin 2.3 H AST 72 H Alkaline Phosphatase 193 H Assessment and Plan - Plan I have reviewed the clinical and radiological findings Head CT 08/30/18 00:25 CONCLUSION: 1. The previously noted isodense subdural hemorrhage along the left parietal occipital lobes is now low density but otherwise not significant changed in size. There is no significant mass effect. 2. The smaller hiatal right parietal subdural hemorrhage is no longer visualized. 3. The high density hemorrhage is the previously noted in the left frontal, temporal and parietal lobes have resolved with mild residual edema. 4. No new hemorrhage or mass effect. Neuro: neuro checks in a serial fashion. recommend nonoprtayive treatment. I will defer further care to his established neurosurgeon, dr Miguel Cantu Pulmonary: aggressive pulmonary toilette, nasotracheal suction, and breathing treatments with nebulizers. Hypothyroidism: Levothyroxine Alcohol use disorder -[facility] protocol -Thiamine folate multivitamins -Monitor for withdrawal Daily PT and OT Renal: Continue to monitor closely urine output, BUN and creatinine Endocrine: Continue to Monitor serial Acu checks and SSI as needed in detail ID continue to monitor for signs of infection Continue Protonix for stress ulcer prophylaxis Continue Joe hose and SCD's for DVT prophylaxis I will defer further care to his established neurosurgeon, dr Miguel Cantu Capcristopher VTE Risk Assessment Stone VTE Risk Assessment: Moderate/High Risk (score >= 2) Darrenrini Risk Assessment Model: Point Value = 1 Point Value = 2 Point Value = 3 Point Value = 5 Age 41-60 Minor surgery BMI > 25 kg/m2 Swollen legs Varicose veins or History of unexplained or recurrent spontaneous Oral contraceptives or hormone replacement Sepsis (< 1 month) Serious lung disease, including pneumonia (< 1 month) Abnormal pulmonary function Acute myocardial infarction Congestive heart failure (< 1 month) History of inflammatory bowel disease Medical patient at bed rest Age 61-74 Arthroscopic surgery Major open surgery (> 45 min) Laparoscopic surgery (> 45 min) Malignancy Confined to bed (> 72 hours) Immobilizing plaster cast Central venous access Age >= 75 History of VTE Family history of VTE Factor V Leiden Prothrombin [id number] Lupus anticoagulant Anticardiolipin antibodies Elevated serum homocysteine Heparin-induced thrombocytopenia Other congenital or acquired thrombophilia Stroke (< 1 month) Elective arthroplasty Hip, pelvis, or leg fracture Acute spinal cord injury (< 1 month) Prophylaxis Regimen: Total Risk Factor Score Risk Level Prophylaxis Regimen 0-1 Low Early ambulation 2 Moderate Order ONE of the following: *Sequential Compression Device (SCD) *Heparin 5000 units SQ BID 3-4 Higher Order ONE of the following medications: *Heparin 5000 units SQ TID *Enoxaparin/Lovenox 40 mg SQ daily (WT < 150 kg, CrCl > 30 mL/min) *Enoxaparin/Lovenox 30 mg SQ daily (WT < 150 kg, CrCl > 10-29 mL/min) *Enoxaparin/Lovenox 30 mg SQ BID (WT < 150 kg, CrCl > 30 mL/min) AND/OR *Sequential Compression Device (SCD) 5 or more Highest Order ONE of the following medications: *Heparin 5000 units SQ TID (Preferred with Epidurals) *Enoxaparin/Lovenox 40 mg SQ daily (WT < 150 kg, CrCl > 30 mL/min) *Enoxaparin/Lovenox 30 mg SQ daily (WT < 150 kg, CrCl > 10-29 mL/min) *Enoxaparin/Lovenox 30 mg SQ BID (WT < 150 kg, CrCl > 30 mL/min) AND *Sequential Compression Device (SCD)
--- NOTE | 2018-08-30 17:17 | P.PNIM ---
Subjective Interval history: Complaint of chronic headache. It is not worse than his baseline. He has no complaints of weakness or numbness at this time. No visual changes. He states that he went to a local hotel after being discharged previously and used a bus pass to go to [place]. Physical Exam Vital signs: Last Vital Signs Temp 98.4 F 08/30/18 16:00 Pulse 84 08/30/18 16:14 Resp 23 08/30/18 16:14 BP 118/76 08/30/18 16:14 Pulse Ox 100 08/30/18 16:14 Intake & Output 08/28/18 08/29/18 08/30/18 08/31/18 06:59 06:59 06:59 06:59 Intake Total 1065 / 1065 511.2 / 511.2 Balance 1065 / 1065 511.2 / 511.2 Weight 87.4 kg Narrative: GENERAL: This is a well-nourished, well-developed patient, in no apparent distress. CARDIOVASCULAR: Regular rate and rhythm without murmurs, gallops, or rubs. RESPIRATORY: Clear to auscultation. Breath sounds equal bilaterally. No wheezes , rales, or rhonchi. GASTROINTESTINAL: Abdomen soft, non-tender, nondistended. Normal active bowel sounds MUSCULOSKELETAL: Extremities without clubbing, cyanosis, or edema. NEURO: Alert & Oriented x4 to person, place, time, situation. Moves all ext x4 Results Labs CBC & Chem 7: 08/30/18 03:49 08/30/18 03:49 Imaging Imaging: Impressions Head CT 08/30/18 00:25 CONCLUSION: 1. The previously noted isodense subdural hemorrhage along the left parietal occipital lobes is now low density but otherwise not significant changed in size. There is no significant mass effect. 2. The smaller hiatal right parietal subdural hemorrhage is no longer visualized. 3. The high density hemorrhage is the previously noted in the left frontal, temporal and parietal lobes have resolved with mild residual edema. 4. No new hemorrhage or mass effect. . Assessment and Plan Plan 48-year-old white male with a history of alcohol abuse and previous subdural hematoma was transferred here from [facility] with complaints of weakness 1. History of recent subacute subdural hematoma -neurological checks has been stable. Patient has been seen by neurosurgery with continue conservative treatment with no surgical intervention. CT of the brain showed no significant new bleeds and patient remains neurologically stable. At this time will transfer patient out of intensive care unit Continue blood pressure control. Continue physical therapy and occupational therapy 2. Hypertension -continue metoprolol, overall blood pressure controlled 3. Alcohol abuse-patient counseled Placed on CIWA protocol Continue with thiamine, folate and multivitamins 4. Hypothyroidismcontinue levothyroxine 5. DVT prophylaxisSCDs Transfer patient out of intensive care unit Progress Note: Quality VTE Deep Vein Thrombosis/Pulmonary Embolism Present on Admission: No
[2018-08-30] MEDS: Acetaminophen 325 MG Tablet PO PRN (18:27)
[2018-08-30] MEDS: levETIRAcetam 500 MG Tablet PO SCH (20:00)
[2018-08-30] MEDS: Famotidine 20 MG Tablet PO SCH (20:01)
[2018-08-31] MEDS: Sod Chloride 0.9% Inj 1,000 ML IV.CONT SCH (01:53)
[2018-08-31 04:32] LABS: Baso % (Auto) 1.1 % (0.0-2.0); Eos # (Auto) 0.1 th/mm3 (0.0-0.4); Eos % (Auto) 3.7 % (0.0-4.0); Hemoglobin 10.9 gm/dL (13.0-17.0); Lymph # (Auto) 1.2 th/mm3 (1.0-4.8); Mean Corpuscular HGB Conc 33.9 % (32.0-36.0); Mean Corpuscular Hemoglobin 32.9 pg (27.0-34.0); Mean Corpuscular Volume 97.1 fL (80.0-100.0); Mean Platelet Volume 8.2 fL (7.0-11.0); Mono # (Auto) 0.3 th/mm3 (0.0-0.9); Mono % (Auto) 9.6 % (0.0-8.0); Neut # (Auto) 1.4 th/mm3 (1.8-7.7); Neut % (Auto) 45.6 % (16.0-70.0); Platelet Count 132 th/mm3 (150-450); Red Cell Distribution Width 16.7 % (11.6-17.2); White Blood Count 3.1 th/mm3 (4.0-11.0)
[2018-08-31 04:40] LABS: Activated Partial Thrombo Time 29.9 sec (23.4-31.7); INR 1.5 Ratio; Prothrombin Time 14.7 sec (9.8-11.6)
[2018-08-31 05:05] LABS: Alanine Aminotransferase 66 U/L (12-78); Albumin 3.5 g/dL (3.4-5.0); Alkaline Phosphatase 192 U/L (45-117); Anion Gap 8 meq/L (5-15); Aspartate Aminotransferase 50 U/L (15-37); Blood Urea Nitrogen 11 mg/dL (7-18); Calcium 8.2 mg/dL (8.5-10.1); Carbon Dioxide 24.5 meq/L (21.0-32.0); Chloride 107 meq/L (98-107); Glomerular Filtration Rate Greater Than 89 mL/min (>89); Glucose,Random 89 mg/dL (74-106); Magnesium 1.4 mg/dL (1.5-2.5); Phosphorus 4.6 mg/dL (2.5-4.9); Potassium 4.1 meq/L (3.5-5.1); Sodium 139 meq/L (136-145); Total Protein 7.4 g/dL (6.4-8.2)
[2018-08-31] MEDS: Chlorhexidine Gluconate 2% 1 Pack (2 Cloths) TOPICAL SCH (05:37)
[2018-08-31] MEDS ORDERED: Multivitamin Inj 10 ML, Thiamine Inj 100 MG, Folic Acid Inj 1 MG in Sodium Chlor 0.9% I... IV.SIG SCH (09:00)
[2018-08-31] MEDS: Multivit/Folic Acid/Minerals Chewable Tablets CHEW SCH (10:34)
[2018-08-31] MEDS: levETIRAcetam 500 MG Tablet PO SCH ×2 (10:35→21:28)
[2018-08-31] MEDS: Senna/Docusate Sodium 8.6/50 MG Tablet PO SCH ×2 (10:36→21:28)
[2018-08-31] MEDS: Metoprolol Tartrate 25 MG Tablet PO SCH ×2 (10:37→21:28)
[2018-08-31] MEDS: Furosemide 20 MG Tablet PO SCH (10:37)
[2018-08-31] MEDS: Famotidine 20 MG Tablet PO SCH ×2 (10:38→21:28)
--- NOTE | 2018-08-31 12:02 | P.PNIM ---
Subjective Interval history: States that he is currently homeless. He has a cousin that he is trying to reach in [place]. He reports headache. No visual changes. No weakness or numbness. Physical Exam Vital signs: Last Vital Signs Temp 97.4 F L 08/31/18 11:54 Pulse 88 08/31/18 11:54 Resp 20 08/31/18 11:54 BP 115/87 08/31/18 11:54 Pulse Ox 98 08/31/18 11:54 Intake & Output 08/29/18 08/30/18 08/31/18 09/01/18 06:59 06:59 06:59 06:59 Intake Total 1065 / 1065 3616.2 / 3616.2 500 / 500 Output Total 1100 / 1100 Balance 1065 / 1065 2516.2 / 2516.2 500 / 500 Weight 87.4 kg 87.4 kg Narrative: GENERAL: This is a well-nourished, well-developed patient, in no apparent distress. CARDIOVASCULAR: Regular rate and rhythm RESPIRATORY: Clear to auscultation. Breath sounds equal bilaterally. No wheezes , rales, or rhonchi. GASTROINTESTINAL: Abdomen soft, non-tender, nondistended. Normal active bowel sounds MUSCULOSKELETAL: Extremities without clubbing, cyanosis, or edema. NEURO: Alert & Oriented x4 to person, place, time, situation. Moves all ext x4 Results Labs CBC & Chem 7: 08/31/18 03:29 08/31/18 03:29 Assessment and Plan Plan 48-year-old white male with a history of alcohol abuse and previous subdural hematoma was transferred here from [facility] with complaints of weakness 1. History of recent subacute subdural hematoma -neurological checks has been stable. Patient has been seen by neurosurgery with continue conservative treatment with no surgical intervention. CT of the brain showed no significant new bleeds and patient remains neurologically stable. At this time will transfer patient out of intensive care unit Continue blood pressure control with metoprolol. Continue physical therapy and occupational therapy Neuropsychology did do a cognitive evaluation during the previous hospitalization and patient had capacity to make decisions. Will reconsult Dr. Peoples to reevaluate for discharge planning. 2. Hypertension -continue metoprolol, overall blood pressure controlled 3. Alcohol abuse-patient counseled Placed on CIWA protocol Continue with thiamine, folate and multivitamins 4. Hypothyroidismcontinue levothyroxine 5. DVT prophylaxisSCDs Discharge Planning: Case management to assist with placement Progress Note: Quality VTE Deep Vein Thrombosis/Pulmonary Embolism Present on Admission: No
--- NOTE | 2018-08-31 15:59 | P.NPEVAL ---
Patient History - Record/History Review Reason for Referral: The patient is a 48 year old right handed man who is well known to me from his prior admit in July of 2018. At that time he was admitted on transfer from another institution after being found with confusion and garbled speech. Initial thoughts were CVA, but neuroimaging showed traumatic SDH in the left frontal, temporal and parietal lobes. While in the [facility], he developed TITA and was successfully treated with a valium taper. He now returns to [place] with progressive weakness over the past week. He is referred for baseline neurobehavioral status examination to assess cognitive, behavioral and emotional aspects of the injury and to provide treatment recommendations. [facility] - History History Provided By: Patient - Medical History Medical History: Medical History (Last Reviewed 08/31/18 @ 08:45 by Kristi Shook) Medical history unknown Surgical history unknown - Tobacco History Second Hand Smoke Exposure: No Smoking Status: Never smoker - Alcohol History How Often Do You Have a Drink Containing Alcohol: 4 or more times a week - Substance Use History Substance History: No History of Abuse - Substance Use Type Alcohol Status: Early Remission Route Used: By Mouth Frequency: not since last admission - Immunization History Tetanus Immunization: Unsure Hx Influenza Vaccine This Season: Yes Medications Active Medications Acetaminophen (Tylenol) 650 mg PO Q6H PRN PRN Reason: PAIN 1-10 AND/OR FEVER >101F Last Admin: 08/30/18 18:27 Dose: 650 mg Al Hydroxide/Mg Hydroxide (Milk Of Ericka Jiménez) 30 ml PO Q12H PRN PRN Reason: Mild Constipation Albuterol (Duoneb Neb (Prn)) 1 ampul NEB Q2HR NEB PRN PRN Reason: WHEEZING Atorvastatin Calcium (Lipitor) 40 mg PO HS COUNT INCLUDES THE [facility] Last Admin: 08/30/18 20:01 Dose: 40 mg Bisacodyl (Dulcolax Supp) 10 mg RECTAL DAILY PRN PRN Reason: SEVERE CONSITIPATION Chlorhexidine Gluconate (Chlorhexidine 2% Cloth) 3 pack TOPICAL DAILY@0400 COUNT INCLUDES THE [facility] Stop: 09/04/18 03:59 Last Admin: 08/31/18 05:37 Dose: Not Given Chlorhexidine Gluconate (Chlorhexidine 2% Cloth) 3 pack TOPICAL DAILY@0400 PRN PRN Reason: Extra cloth needed Stop: 09/04/18 03:59 Famotidine (Pepcid) 20 mg PO BID COUNT INCLUDES THE [facility] Last Admin: 08/31/18 10:38 Dose: 20 mg Flumazenil (Romazecon Inj) 0.2 mg IV.PUSH Q1M PRN PRN Reason: OVERSEDATION Furosemide (Lasix) 20 mg PO DAILY COUNT INCLUDES THE [facility] Last Admin: 08/31/18 10:37 Dose: 20 mg Haloperidol Lactate (Haldol Inj) 1 mg IV.PUSH Q15M PRN PRN Reason: for severe agitation Lactulose (Lactulose Liq) 30 ml PO DAILY PRN PRN Reason: SEVERE CONSITIPATION Levetiracetam (Keppra) 500 mg PO BID COUNT INCLUDES THE [facility] Last Admin: 08/31/18 10:35 Dose: 500 mg Levothyroxine Sodium (Synthroid) 25 mcg PO DAILY@0600 COUNT INCLUDES THE [facility] Last Admin: 08/31/18 05:37 Dose: 25 mcg Lorazepam (Ativan) 1 mg PO Q4H PRN PRN Reason: for CIWA 8-10 Lorazepam (Ativan Inj) 2 mg IV.PUSH Q2H PRN PRN Reason: for CIWA 11-14 Lorazepam (Ativan Inj) 2 mg IV.PUSH Q1H PRN PRN Reason: for CIWA 15-20 Lorazepam (Ativan Inj) 2 mg IV.PUSH Q15M PRN PRN Reason: for CIWA > 20 Lorazepam (Ativan Inj) 1 mg IV.PUSH Q4H PRN PRN Reason: for CIWA 8-10 Lorazepam (Ativan) 2 mg PO Q2H PRN PRN Reason: for CIWA 11-14 Metoprolol Tartrate (Lopressor) 25 mg PO BID COUNT INCLUDES THE [facility] Last Admin: 08/31/18 10:37 Dose: 25 mg Multivitamins/Folic Acid/Vitamin C (Flintstones) 1 tab CHEW DAILY COUNT INCLUDES THE [facility] Last Admin: 08/31/18 10:34 Dose: 1 tab Ondansetron HCl (Zofran Inj) 4 mg IV.PUSH Q6H PRN PRN Reason: NAUSEA OR VOMITING Last Admin: 08/30/18 20:04 Dose: 4 mg Potassium Chloride (K-Dur) 20 meq PO DAILY COUNT INCLUDES THE [facility] Last Admin: 08/31/18 10:37 Dose: 20 meq Senna/Docusate Sodium (Anum-Colace) 1 tab PO BID COUNT INCLUDES THE [facility] Last Admin: 08/31/18 10:36 Dose: Not Given Sennosides (Senokot) 17.2 mg PO Q12H PRN PRN Reason: Moderate Constipation Sodium Chloride (Ns Flush) 2 ml IV.FLUSH BID COUNT INCLUDES THE [facility] Last Admin: 08/31/18 10:39 Dose: 2 ml Sodium Chloride (Ns Flush) 2 ml IV.FLUSH PRN PRN PRN Reason: FLUSH AFTER USING IV ACCESS Thiamine HCl (Vitamin B1) 100 mg PO DAILY COUNT INCLUDES THE [facility] Last Admin: 08/31/18 10:35 Dose: 100 mg Mental Status Assessment - Mental Status Orientation: oriented to: Self, Place, Time, Situation Mental Status: WFL: Language/interactions, Attention, Learning/memory, Problem- solving, Variable: Thought processing Absent: Hallucinations, Delusions Adjustment/Coping Assessment - Adjustment/Coping Adjustment/Coping: None: Awareness, Insight - Observation In terms of emotional functioning, the patient demonstrated challenges. This patient demonstrated no signs of agitation, impulsivity or disinhibition, nor was there remarkable evidence of a formal thought disorder or psychosis. There was no evidence of depression or anxiety. Thought content was free from suicidal, homicidal or paranoid ideation, and thought processes were logical but bradyphrenic. The patients mood was euthymic, and his affect was stable and appropriate. The patient appears to possess insight and awareness into their situation and within the limits of this brief evaluation, adequate basic judgment. - Goals/Team Members LTG Status: Deferred STG Status: Deferred Team Members: Neuropsychologist Behavior - Behavior Treatment Engagement: Average - Observation Behaviorally, the patient demonstrated no signs of agitation, impulsivity or disinhibition. There was no remarkable evidence of a formal thought disorder or psychosis. - Goals LTG Status: Deferred STG Status: Deferred - Team Members Team Members: Neuropsychologist Diagnosis/Discharge Plan - Diagnosis (1) Mild neurocognitive disorder Status: Acute Impression: 48 year old male s/p complicated mild TBI 2T fall who is well known to me from prior [facility] admission. His neurocognitive issues are at baseline, reflecting an underlying mild neurocognitive disorder. He retains decision making capacity. Disinhibition Score: 15.75 Aggression Score: 14.00 Lability Score: 14.00 Agitated Behavior Total Score: 15 Maximizing Acute Care Outcome: At this point in the recovery process, the patient does have cognitive capacity as the patient is able to understand a situation and its likely consequences, and he is able to manipulate information rationally. Cognitive capacity will be assessed throughout the recovery process. - Discharge Planning Anticipated Problems: Ongoing areas of concern will include behavioral impulsivity, lack of insight and judgment, which is expected to improve with time and treatment. He needs to refrain from alcohol use going forward. Treatment Plan: This clinician will continue to follow with you throughout the course of this patients acute care treatment, and I will be available to meet with the patient s family/support system to facilitate their understanding and the ongoing care of their family member. The goals of neuropsychological intervention shall be both educational and supportive to the family/support system as is deemed clinically appropriate. Thank you for the opportunity to assist in this patients care. Levon Peoples, Ph.D., ABPP Board Certified in Clinical Neuropsychology [place] [employer] [place] Licensed Psychologist #[id number]
--- NOTE | 2018-08-31 18:02 | P.PNNS ---
Subjective Interval history: Pt awake and alert. He complains of headaches but improving. His speech has improved since his last evaluation. No muscle weakness. Complains of muffled hearing left ear. Physical Exam Vital signs: Vital Signs 08/30/18 18:00 08/30/18 18:14 08/30/18 19:00 Temperature 98.4 F Pulse Rate 87 83 89 Respiratory Rate 16 22 15 Blood Pressure 95/69 L 95/69 L Pulse Oximetry 99 99 97 08/30/18 19:14 08/30/18 20:00 08/30/18 20:06 Temperature 97.9 F Pulse Rate 84 93 H 87 Respiratory Rate 14 20 20 Blood Pressure 93/62 L 102/75 Pulse Oximetry 98 98 97 08/30/18 20:14 08/30/18 21:00 08/30/18 21:14 Temperature Pulse Rate 92 H 100 H 96 H Respiratory Rate 15 16 16 Blood Pressure 117/78 99/58 L Pulse Oximetry 95 97 94 L 08/30/18 22:00 08/30/18 22:14 08/30/18 23:00 Temperature Pulse Rate 101 H 106 H 117 H Respiratory Rate 15 18 22 Blood Pressure 108/70 Pulse Oximetry 93 L 96 95 08/30/18 23:14 08/31/18 00:00 08/31/18 00:14 Temperature 98.6 F Pulse Rate 115 H 115 H 112 H Respiratory Rate 13 17 15 Blood Pressure 120/72 129/81 Pulse Oximetry 96 91 L 99 08/31/18 01:00 08/31/18 01:14 08/31/18 02:00 Temperature Pulse Rate 110 H 110 H 105 H Respiratory Rate 18 18 23 Blood Pressure 98/71 L Pulse Oximetry 93 L 100 100 08/31/18 02:14 08/31/18 03:00 08/31/18 04:00 Temperature 97.4 F L Pulse Rate 103 H 95 H 90 Respiratory Rate 22 28 H 16 Blood Pressure 136/96 H 118/81 Pulse Oximetry 98 100 100 08/31/18 04:12 08/31/18 08:00 08/31/18 11:54 Temperature 97.4 F L 97.4 F L 97.4 F L Pulse Rate 90 78 88 Respiratory Rate 16 20 20 Blood Pressure 118/81 119/78 115/87 Pulse Oximetry 100 92 L 98 08/31/18 16:00 Temperature 97.3 F L Pulse Rate 73 Respiratory Rate 18 Blood Pressure 125/77 Pulse Oximetry 98 Intake & Output 08/30/18 08/31/18 08/31/18 18:59 06:59 18:59 Intake Total 2616.2 / 2616.2 1000 / 1000 500 / 500 Output Total 1100 / 1100 Balance 1516.2 / 1516.2 1000 / 1000 500 / 500 Weight 87.4 kg Intake: IV 1616.2 / 1616.2 1000 / 1000 500 / 500 NS Inj 1,000 ML @ 84 mls/hr IV. 1000 / 1000 1000 / 1000 500 / 500 CONT .[id number] CHACHO Rx#:[id number] MVI-12 Inj 10 ML Thiamine Inj 511.2 / 511.2 100 MG Folvite Inj 1 MG In NS Inj 500 ML @ 127.8 mls/hr IV. SIG DAILY CHACHO Rx#:[id number] Keppra Inj 500 MG In NS Inj 100 105 / 105 ML @ 400 mls/hr IV.SIG Q12H CAHCHO Rx#:[id number] Oral 1000 / 1000 Output: Urine 1100 / 1100 Other: # Voids 1 Date of Last Bowel Movement 08/28/18 - Constitutional no acute distress, average body habitus - Routine HEENT Exam Head: Present: normocephalic Eye: Present: PERRL - Routine Neck Exam Present: trachea midline - Routine Respiratory Exam Present: CTA bilaterally. Absent: respiratory distress, rhonchi, wheezes - Routine Cardiovascular Exam Present: RRR, S1, S2. Absent: murmur - Routine Abdominal Exam Present: soft, normoactive bowel sounds. Absent: distended, firm - Routine Skin Exam Absent: cyanosis, erythema - Routine Neurological Exam Present: alert, moving all extremities. Absent: motor deficit, altered mental status, facial asymmetry, normal speech (Improved from his last admission, only mild expressive aphasia.) - Detailed Neurological Exam: Coma Scale Eye Opening: Spontaneous Verbal Response: Oriented Motor Response: Obey commands [place] Coma Scale Total: 15 - Routine Psychiatric Exam Present: normal affect. Absent: anxious, agitated Assessment and Plan - Assessment (1) Subdural hematoma, acute Code(s): S06.5X9A - Traumatic subdural hemorrhage with loss of consciousness of unspecified duration, initial encounter Status: Acute (2) Cerebral contusion Code(s): S06.339A - Contusion and laceration of cerebrum, unspecified, with loss of consciousness of unspecified duration, initial encounter Status: Acute Qualifiers: Encounter type: initial encounter Laterality: left Loss of consciousness presence/duration: with LOC of unspecified duration Qualified Code(s): S06.329A - Contusion and laceration of left cerebrum with loss of consciousness of unspecified duration, initial encounter (3) Major neurocognitive disorder as late effect of traumatic brain injury with behavioral disturbance Code(s): S06.9X9S - Unspecified intracranial injury with loss of consciousness of unspecified duration, sequela; F02.81 - Dementia in other diseases classified elsewhere with behavioral disturbance Status: Acute (4) Mild neurocognitive disorder Code(s): G31.84 - Mild cognitive impairment, so stated Status: Acute (5) Traumatic brain injury Code(s): S06.9X9A - Unspecified intracranial injury with loss of consciousness of unspecified duration, initial encounter Status: Acute Qualifiers: Encounter type: initial encounter Loss of consciousness presence/duration: with LOC > 24 hr with return to prior conscious level Qualified Code(s): S06.9X5A - Unspecified intracranial injury with loss of consciousness greater than 24 hours with return to pre-existing conscious level, initial encounter (6) Fall Code(s): W19.XXXA - Unspecified fall, initial encounter Status: Acute - Plan I have reviewed the clinical and radiological findings Head CT 08/30/18 00:25 CONCLUSION: 1. The previously noted isodense subdural hemorrhage along the left parietal occipital lobes is now low density but otherwise not significant changed in size. There is no significant mass effect. 2. The smaller hiatal right parietal subdural hemorrhage is no longer visualized. 3. The high density hemorrhage is the previously noted in the left frontal, temporal and parietal lobes have resolved with mild residual edema. 4. No new hemorrhage or mass effect. Neuro: Plan formulated with Dr. Cantu. Pts Follow up CT head stable. No need for further follow up CTs. Neurosurgery will see pt prn.
[2018-08-31] MEDS: Acetaminophen 325 MG Tablet PO PRN (21:29)
[2018-09-01] MEDS: Chlorhexidine Gluconate 2% 1 Pack (2 Cloths) TOPICAL SCH (04:01)
[2018-09-01 04:06] VITALS: O2SAT 98
[2018-09-01 09:32] VITALS: BP 102/71; PULSE 77; RESP 20; TEMP 97.4
[2018-09-01] MEDS: Multivit/Folic Acid/Minerals Chewable Tablets CHEW SCH (09:38)
[2018-09-01] MEDS: Senna/Docusate Sodium 8.6/50 MG Tablet PO SCH (09:38)
[2018-09-01] MEDS: Famotidine 20 MG Tablet PO SCH (09:38)
[2018-09-01] MEDS: levETIRAcetam 500 MG Tablet PO SCH (09:38)
[2018-09-01] MEDS: Furosemide 20 MG Tablet PO SCH (09:39)
[2018-09-01] MEDS: Metoprolol Tartrate 25 MG Tablet PO SCH (09:39)
--- NOTE | 2018-09-01 10:39 | P.DS ---
DS: Providers Date of admission: 08/30/18 00:00 Primary care physician: Renetta Salazar Consults: 08/30/18 00:30 Consult to Neurosurgery Routine Consulting Provider: Juwan John Banana Grader:: Juwan John Patient known to:: Juwan John Reason for Consultation: SDH Notified:: Service Spoke with:: hilaria Date Notified:: 08/30/18 Time Notified:: 00:37 Ordering Provider: JONAH 08/30/18 08:41 HUB Only Consult Order Routine Consulting Provider: vLex,Insurance 08/30/18 21:07 Consult to Hospitalist Routine Consulting Provider: Sangeeta Seth Reason for Consultation: AMS Notified:: Service Spoke with:: CAMILLE Date Notified:: 08/30/18 Time Notified:: 00:33 Ordering Provider: JONAH 08/31/18 07:59 Consult to Neuropsychology Routine Consulting Provider: Levon Peoples Reason for Consultation: HX of SDH, TBI, ETOH with readmission, evaluate for cognitive capacity and discharge planning Notified:: Physician Spoke with:: fred msmariajose Date Notified:: 08/31/18 Time Notified:: 08:08 Ordering Provider: BETTY Brief History from admission: 48-year-old unfortunate homeless gentleman who presented at the emergency department at [facility] with a complaints of weakness. The onset was 1 week ago. The course of duration of symptoms was fluctuating in intensity. In addition he reports a headache gradual onset times 1 week with intermittent vertigo. Patient reports that on 08/11/2018 he had a seizure and fell and hit his head. He was seen at the dental and and transferred to [place] for subdural hematoma. The patient denies chest pain, shortness of breath, fevers, chills dysuria, visual changes, extremity weakness numbness, or gait instability. The CT of the head obtained in the emergency department at [facility] demonstrates multifocal small areas of subdural hemorrhage involving bilateral convexities variant in age from acute to chronic as described. Some of these areas appear to be a subacute in nature. There also involving areas of hemorrhagic contusion involving the left orbital frontal brain and the lateral left temporal lobe. After discussion with Dr. John the patient has been transferred to [facility] for higher level of care. DS: Diagnosis Discharge Diagnosis (1) Subdural hematoma, acute: Status: Acute (2) Cerebral contusion: Status: Acute (3) Major neurocognitive disorder as late effect of traumatic brain injury with behavioral disturbance: Status: Acute (4) Mild neurocognitive disorder: Status: Acute (5) Traumatic brain injury: Status: Acute (6) Fall: Status: Acute DS: Summary 48-year-old white male was transferred from [facility] physician [place] after he was seen for a fall with findings of subdural hematoma on CAT scan for neurosurgical evaluation. Of note, patient was recently on the trauma service and admitted for a fall leading to a subdural hematoma. Dr. John and Dr. Cantu here at the hospital evaluated his current CAT scan and felt the subdural hematoma was all chronic and no new findings. His neurological status has been stable. He is able to ambulate. Dr. Peoples, neuro psychologist did a cognitive evaluation and felt that he has capacity to make decisions and has good potential for full recovery. He has a history of alcohol abuse and secession counseling was provided along with placing the patient on CIWA protocol. Patient's blood pressure has been controlled on home metoprolol. His home levothyroxine was restarted for hypothyroidism. At this time, patient will be discharged to home with outpatient follow-up. He has gained maximum benefit from hospitalization. Status at Discharge Functional status at discharge: independent ambulation Overall status at discharge: patient is back to baseline Time Spent with Patient Total time spent providing and/or coordinating discharge services: Less than 30 minutes Quality: VTE Deep Vein Thrombosis/Pulmonary Embolism Present on Admission: No Exam Narrative Exam Narrative: GENERAL: This is a well-nourished, well-developed patient, in no apparent distress. CARDIOVASCULAR: Regular rate and rhythm without murmurs, gallops, or rubs. RESPIRATORY: Clear to auscultation. Breath sounds equal bilaterally. No wheezes , rales, or rhonchi. GASTROINTESTINAL: Abdomen soft, non-tender, nondistended. Normal active bowel sounds MUSCULOSKELETAL: Extremities without clubbing, cyanosis, or edema. NEURO: Alert & Oriented x4 to person, place, time, situation. Moves all ext x4 Results Impressions ITS Impressions Head CT 08/30/18 00:25 CONCLUSION: 1. The previously noted isodense subdural hemorrhage along the left parietal occipital lobes is now low density but otherwise not significant changed in size. There is no significant mass effect. 2. The smaller hiatal right parietal subdural hemorrhage is no longer visualized. 3. The high density hemorrhage is the previously noted in the left frontal, temporal and parietal lobes have resolved with mild residual edema. 4. No new hemorrhage or mass effect. . Discharge Plan Discharge Disposition Patient Disposition: Discharge Home Discharge Condition Condition: Good Discharge Order Discharge Orders: Discharge Order (Routine); Ordered 09/01/18 Ordered By: Amanda Clifton Discharge Details Anticipated Discharge Date: 09/01/18 Physicians Team Primary Care Provider: Renetta Lakhani Attending Provider: Amanda Clifton Other Providers: Juwan John ; vLex,Insurance ; Levon Peoples Rxs /Orders / Referrals /Forms Prescriptions: New acetaminophen 325 mg Tablet 650 mg PO Q6H PRN (Reason: Pain 1-10 And/Or Fever >101f) Qty: 30 RF: 0 Continue atorvastatin 40 mg Tablet 40 mg PO HS RF: 0 thiamine HCl (vitamin B1) 100 mg Tablet 100 mg PO DAILY RF: 0 levothyroxine [Synthroid] 25 mcg Tablet 25 mcg PO DAILY RF: 0 furosemide 20 mg Tablet 20 mg PO DAILY RF: 0 metoprolol tartrate 25 mg Tablet 25 mg PO BID RF: 0 potassium chloride 20 mEq Tablet Extended Release 20 meq PO DAILY RF: 0 magnesium oxide 400 mg magnesium Tablet 400 mg PO HS RF: 0 Discontinued sennosides-docusate sodium [Senna Plus] 8.6-50 mg Tablet 1 tab PO BID RF: 0 magnesium hydroxide [Milk of Magnesia] 400 mg/5 mL Suspension 30 ml PO Q12H RF: 0 Referrals: Renetta Lakhani M.D. [Primary Care Provider] - 09/15/18 3:00 pm Post Discharge Care Plan Care Plan Goals: Your Health Problems: subdural hematoma Goals to Promote Your Health: * To prevent worsening of your condition * To maintain your health at the optimal level Directions to Meet Your Goals: * Take your medications as prescribed * Follow your dietary instruction * Follow activity as directed * Keep your appointments as scheduled * Take your immunizations and boosters as scheduled * If your symptoms worsen call your PCP * If no PCP go to Urgent Care or Emergency Room Smoking is dangerous to your health. Avoid second hand smoke. You may reach the 24-hour crisis hotline for domestic abuse at .
== END 2018-09-01 13:52 | disposition home or self-care (01) ==
LOC: N03 08-30 → N05 08-31 03:50
PROVIDERS: ADMIT Family Medicine; ATTEND Family Medicine
DX: F01.51 Vascular dementia, unspecified severity, with behavioral disturbance; E03.9 Hypothyroidism, unspecified; R56.9 Unspecified convulsions; I10 Essential (primary) hypertension; S06.5X9A Traumatic subdural hemorrhage with loss of consciousness of unspecified duration, initial encounter; W19.XXXA Unspecified fall, initial encounter; F10.10 Alcohol abuse, uncomplicated; F02.81 Dementia in other diseases classified elsewhere, unspecified severity, with behavioral disturbance; Z59.0 Homelessness